=== PATIENT | male | born 1960 | race Caucasian/White ===

== ENCOUNTER 2022-01-04 06:49 | Emergency (ER) | payer MEDICAID, SELFPAY ==
[2022-01-04 06:54] VITALS: BP 163/96; PULSE 81; RESP 16; TEMP 36.4; O2SAT 98
--- NOTE | 2022-01-04 07:08 | ED.GENADUL_ITS ---
Discharge Plan Disposition Patient Disposition: HOME Condition: Stable Discharge Details Clinical Impression: Dental infection Primary Care Provider: None,None ED Provider: Refugio Blanchard Home Meds and New Rx's Prescriptions: New penicillin V potassium 500 mg tablet 500 mg PO QID Qty: 36 RF: 0 Continued ibuprofen 800 MG tablet 800 mg PO TID PRN PRN (Reason: Pain) Qty: 30 RF: 0 Discharge Instructions Instructions: Dental Abscess (ED) Additional Instructions: Your blood pressure was elevated today 163/96. This is too high. Please be sure to follow-up with your primary care physician. If blood pressure remains elevated you will need additional diagnostic testing and treatment. Please take full course of antibiotic as prescribed. Please take ibuprofen over the counter. Take 600-800mg by mouth every 6 hours as needed for pain. Please contact your dentist to arrange follow-up. Please contact your primary care physician to arrange timely follow-up. Be sure to discuss your blood pressure. Return to the ER immediately for any worsening or new concerning symptoms. Medical Decision Making 61-year-old male here with right lower incisor dental pain over the past 2 days, chronic dental fracture, no abscess amenable to incision and drainage. Plan to treat with penicillin. Initial dose given here and prescription sent to pharmacy. Usual and customary discharge instructions reviewed with the patient. He was instructed to follow-up with his dentist at [facility]. Patient was informed of his elevated blood pressure advised to follow-up with primary care physician. He does not currently have a primary care physician I will addend the care management list to arrange for PCP follow-up. HPI General Mode of arrival: ambulatory . Date/Time Provider Initiated Documentation: 01/04/22 06:53 . Limitations to Documentation: no limitations . Information obtained by: patient . HPI Narrative: 61-year-old male presents with chief complaint of dental pain. Patient notes right lower incisor dental pain for the past few days. Patient notes chronic dental fracture of the tooth. No associated swelling or fever. Patient notes this tooth has been infected in the remote past. Related Data Home Medications Medication Instructions Recorded Confirmed ibuprofen 800 mg PO TID PRN PRN #30 tab 11/21/15 01/04/22 penicillin V potassium 500 mg PO QID #36 tab 01/04/22 Previous Rx's Medication Instructions Recorded ibuprofen 800 mg PO TID PRN PRN #30 tab 11/21/15 penicillin V potassium 500 mg PO QID #36 tab 01/04/22 Allergies Allergy/AdvReac Type Severity Reaction Status Date / Time No Known Allergies Allergy Unverified 01/04/22 06:58 General Stated Complaint: DentalOral NILA: 4 Review of Systems Constitutional Constitutional: Denies fever(s) ENT Ears, Nose, Mouth, and Throat: Reports as per HPI PFSH All Active Problems Dental infection (Acute) Medical History Inguinal hernia Lipoma of face Surgical History Excision, Lipoma 05/10/15 ON FOREHEAD. Repair of inguinal hernia 05/10/15; RIGHT WITH MESH REPAIR Social History Smoking/Tobacco Use Status: Former Tobacco Use Smoking risk assessment performed?: Yes Alcohol Intake: former Drug use: Daily Substance use type: marijuana Exam Const General: cooperative and comfortable Orientation: alert and awake HENME General nose exam: external nose normal Face and sinus: normal facial exam and no edema Teeth and gingiva: poor dentition and other (tooth 27 chronic fracture, no swelling/fluctuance) Throat: posterior oropharynx normal Course Vital Signs Vital signs: Vital Signs Temperature 36.4 C L 01/04/22 06:54 Pulse 81 01/04/22 06:54 Respiratory Rate 16 01/04/22 06:54 Blood Pressure 163/96 H 01/04/22 06:54 Pulse Oximetry 98 01/04/22 06:54 Temperature 36.4 C L 01/04/22 06:54 Temperature Source Skin 01/04/22 06:54 Pulse 81 01/04/22 06:54 Respiratory Rate 16 01/04/22 06:54 Respiratory Effort 01/04/22 06:54 Blood Pressure 163/96 H 01/04/22 06:54 Blood Pressure Position Sitting 01/04/22 06:54 Pulse Oximetry 98 01/04/22 06:54 Oxygen Delivery Method Room Air 01/04/22 06:54 Oxygen Flow Rate 0 01/04/22 06:54 Pain Level 5 01/04/22 06:54
[2022-01-04] MEDS: Penicillin V POTASSIUM 500 MG TAB PO (07:13)
--- NOTE | 2022-01-04 07:20 | NUR.NOTE ---
Nursing Note: Pt info given to care management to establish care and PCP. Kandace, ED
== END 2022-01-04 07:21 | disposition home or self-care (01) ==
PROVIDERS: Emergency Provider Student in an Organized Health Care Education/Training Program
DX: K04.7 Periapical abscess without sinus (principal); R03.0 Elevated blood-pressure reading, without diagnosis of hypertension
CPT/HCPCS: 99283

== ENCOUNTER 2022-01-22 09:27 | Outpatient (REF) | payer MEDICAID, SELFPAY ==
[2022-01-22 15:22] LABS: Abs Immature Grans 0.06 10^3/uL (0.0-0.06); Absolute Basophil Count 0.07 10^3/uL (0.0-0.2); Absolute Eosinophil Count 0.06 10^3/uL (0.0-0.7); Absolute Lymphocyte Count 2.81 10^3/uL (1.2-3.4); Absolute Monocyte Count 0.69 10^3/uL (0.1-0.8); Basophils % 0.6; Eosinophils % 0.5; HCT 44.5 % (40.0-50.0); HGB 14.9 g/dL (13.5-17.5); Immature Grans % 0.5; Lymphocytes % 22.7; MCH 30.7 pg (27.0-33.0); MCHC 33.5 % (32.0-36.0); MCV 91.8 fL (80-95); MPV 9.3 fL (8.0-11.0); Monocytes % 5.6; Neutrophils % 70.1; Nucleated RBC 0 %; Platelet Count 322 10^3/uL (130-400); RBC 4.85 10^6/uL (4.36-5.78); RDW 12.4 % (11.8-14.1); RDW-SD 41.7 fL; WBC 12.36 10^3/uL (4.4-10.8)
[2022-01-22 15:24] LABS: Absolute Neutrophil Count 8.66 10^3/uL (1.2-6.7)
[2022-01-22 15:45] LABS: ALT 29 U/L (16-63); AST 19 U/L (15-37); Alkaline Phosphatase 87 U/L (46-116); Anion Gap 8.2 mmol/L (3-11); BUN 13 mg/dL (7-18); Bilirubin, Total 0.3 mg/dL (0.2-1.0); CO2 26.8 mmol/L (21.0-32.0); CREATININE 0.8 mg/dL (0.70-1.30); Calcium 9.3 mg/dL (8.5-10.1); Calculated LDL 107 mg/dL (<100); Chloride 105 mmol/L (98-107); Cholesterol 207 mg/dL (<200); Glucose 98 mg/dL (74-106); HDL Cholesterol 39 mg/dL (40-60); Potassium 4.6 mmol/L (3.5-5.1); Sodium 140 mmol/L (136-145); Total Protein 7.2 g/dL (6.4-8.2); Triglyceride 309 mg/dL (<150)
== END 2022-01-22 09:28 | disposition home or self-care (01) ==
LOC: LBN 09:27
PROVIDERS: PCP Nurse Practitioner; Visit Provider Nurse Practitioner
DX: Z13.220 Encounter for screening for lipoid disorders (principal); J45.909 Unspecified asthma, uncomplicated
CPT/HCPCS: 80053; 80061; 85025

== ENCOUNTER 2022-02-18 02:01 | Outpatient (CLI) | payer MEDICAID, SELFPAY ==
--- NOTE | 2022-02-18 08:40 | DI.CT_ITS ---
Exam(s) CT PELVIC W EXAM: CT PELVIC W CLINICAL HISTORY: rt groin pain, h/o rih repair, z98.890,z87.19. TECHNIQUE: Imaging Protocol: Axial computed tomography images with coronal and sagittal reformatted images were created and reviewed CONTRAST MATERIAL: Intravenous: Omnipaque 100cc Oral: None COMPARISON: No exams were available for comparison FINDINGS: PELVIS: OSSEOUS:No acute fractures identified pelvis and hips sacrum. Prior non recent appearing L4 left tra nsverse process fracture is noted. No significant osseous lesions.Sacroiliac joints appear unremarka ble. ANTERIOR ABDOMINAL WALL/GI:No evidence of bowel obstruction. No evidence of appendicitis.No evidence of sigmoid diverticulitis. LYMPH NODES: There is no intrapelvic nor inguinal adenopathy. REPRODUCTIVE: Prostate gland is not enlarged. URINARY BLADDER: No calculi nor obvious masses evident. Distal ureters appear unremarkable. GI: Sigmoid diverticuli. No obvious acute diverticulitis. No appendicitis. Ileocecal valve appears unremarkable. OTHER: No evidence of significant inguinal hernia. IMPRESSION: 1. No acute findings. There appears to be a left transverse process fracture at L4, probably not acu te. 2. No obvious inguinal hernia, as per request. 3. Sigmoid diverticuli. No obvious acute diverticulitis. RADIATION DOSE DELIVERED: 491.78mGy.cm Total DLP DATA REPOSITORY: All CT scans at this facility are submitted to the National Radiology Data Registry (NRDR) Dose Index Registry (DIR) with the [employer] ([employer]). RADIATION OPTIMIZATION: All CT scans at this facility use at least one of these dose optimization te chniques: automated exposure control; mA and/or kV adjustment per patient size (includes targeted exa ms where dose is matched to clinical indication); or iterative reconstruction.
[2022-02-18] MEDS: Omnipaque 350 MG/ML 100 ML BTL IJ (08:42)
== END 2022-02-18 02:21 ==
PROVIDERS: PCP Nurse Practitioner; Visit Provider Nurse Practitioner
DX: R10.31 Right lower quadrant pain (principal); Z98.890 Other specified postprocedural states; K57.30 Diverticulosis of large intestine without perforation or abscess without bleeding
CPT/HCPCS: 72193; J3490

== ENCOUNTER 2022-09-30 07:01 | Day surgery (SDC) | payer MEDICAID, SELFPAY ==
--- NOTE | 2022-09-30 06:36 | COLE_ITS ---
Date of service: 09/30/22 Time of Service: : Colonoscopy Report Date of procedure: 09/30/22 Pre-op diagnosis general: Colon Cancer screening Post-op diagnosis procedure note: other (polyps) Procedure: Colonoscopy with polypectomy Surgeon: Sahra Umana Anesthesia Type: General:No Airway Estimated blood loss (mL): 3 Pathology: other (ascending and descending polyp, rectal polyps x13) Complications: None Disposition: same day Indications: The patient is a pleasant 62-year-old male who is here to discuss a screening colonoscopy. He denies any changes in bowel habits, melena, hematochezia, unintentional weight loss or family history of colon cancer. The procedure and risks were discussed. The prep was reviewed in detail. Risks, benefits and complications have been reviewed. Complications include but are not limited to bleeding, pain, perforation, missed small lesion/polyp, sore throat, aspiration and adverse reaction to the medications. Questions were entertained and answered to their satisfaction and they wished to proceed. No guarantees were given or implied. Prep: Miralax/Dulcolax Procedure Start Time: Procedure End Time: : Retraction Time: 31 minutes Findings: 13 polyps Procedure Description: After informed consent was obtained the patient was taken to the procedure room and placed in a left decubitous position. Monitors were applied and a time out was done. The patients name, date of , procedure, allergies to medications and metal in their body was reviewed. The patient was then sedated. Once sedated and comfortable a rectal exam was done. External exam was normal. Internal exam revealed a normal sphincter tone and no palpable masses. The prostate felt smooth. The scope was then introduced and retro-flexed. no internal hemorrhoids, polyps or masses were identified on retro-flexion. The scope was then advanced to the cecum without difficulty. The ileocecal vlave and appendiceal orifice were identified. The prep was adequate. The scope was then slowly retracted over 31 minutes back into the rectum. Polyps were removed with cold forceps in the descending colon, and rectum x 11 and with a cold snare in the ascending colon and rectum x2. There was no diverticulosis noted. The scope was removed and the patient was woken up and taken back to Same day surgery in stable condition. The patient tolerated the procedure well and there were no immediate complicati ons.
--- NOTE | 2022-09-30 06:37 | W.PM.DSUDISC ---
Date of service: 09/30/22 Time of Service: 08:23 Discharge Plan Disposition Patient Disposition: HOME Condition: Good Discharge Details Reason For Visit: colonoscopy Attending Provider: Sahra Umana Primary Care Provider: Ml Felton Home Meds and New Rx's Prescriptions: Continued ibuprofen 800 MG tablet 800 mg PO TID PRN PRN (Reason: Pain) Qty: 30 0RF Discontinued bisacodyl [Dulcolax (bisacodyl)] 5 mg tablet,delayed release (DR/EC) 5 mg PO ONCE Qty: 4 0RF Rx Instructions: Take according to provider's instructions for colonoscopy prep. polyethylene glycol 3350 17 gram/dose powder 17 g PO ONCE Qty: 238 0RF Rx Instructions: To be taken as directed by prescriber's office for colonoscopy prep. Discharge Instructions Instructions: Colorectal Polyps (DC) Additional Instructions: Findings: 15 polyp Follow up: 3- years Please call if you develop: fevers >101.5 Nausea or Vomiting Abdominal pain that is not transient Rectal bleeding that is more then a tbsp A hard abdomen and inability to pass gas DAY SURGERY UNIT POST ENDOSCOPY INSTRUCTIONS Instructions for everyone who is given Anesthesia: For your safety, please do the following for the next 24 Hours: a. Do not drive or operate dangerous equipment b. Do not drink alcohol beverages or use any recreational drugs for the first 24 hours or while taking pain medications. The medications in your body may have a reaction that can be dangerous. c. Do not make any important decisions or sign any important papers 1. Generally there are no restrictions on your activity after a day or so has gone by, but you may feel a bit fatigued for a few days. 2. After you arrive home you may have a light meal and return to a normal diet as you can tolerate it without feeling sick to your stomach. 3. After surgery, you may feel pain or discomfort. This should be only transient, but if it persists please contact your doctor. 4. If there are any questions regarding the findings of your procedure, please feel free to contact your doctor. 6. If you are unable to contact your doctor with a problem, contact the hospital at [phone]. 7. Continue all your regular medications unless directed otherwise. I understand the above instructions and have no questions. Signature of Patient or Responsible Adult Escort Date/Time Name of Responsible Adult Escort Signature of Nurse Date/Time Activity:: Activity as Tolerated Diet:: As Tolerated Discharge Orders Discharge Orders: Discharge Order (Routine); Ordered 09/30/22 Ordered By: Sahra Umana
[2022-09-30 07:26] VITALS: BP 130/92; PULSE 94; RESP 16; TEMP 37; O2SAT 97
[2022-09-30] MEDS: Lactated Ringers 1,000 ML 80 ML IV (07:50)
--- NOTE | 2022-09-30 08:09 | W.ANESPRE ---
General Info Date of Service Date Performed: 09/30/22 Height: 5 ft 9 in Weight: 85.1 kg Body Mass Index (BMI): 27.7 Surgical Procedure: Operation Date: 09/30/22 08:20 Proposed Procedure Side Surgeon p Colonoscopy Sahra Umana MD Meds Allergies and Home Medications Allergies Allergy/AdvReac Type Severity Reaction Status Date / Time No Known Allergies Allergy Unverified 09/30/22 07:38 Home Medication Medication Instructions Recorded ibuprofen 800 mg tablet 800 mg PO TID PRN PRN Pain #30 tabs 11/21/15 bisacodyl 5 mg tablet,delayed 5 mg PO ONCE #4 tabs 09/17/22 release (Dulcolax (bisacodyl)) polyethylene glycol 3350 17 17 g PO ONCE #238 grams 09/17/22 gram/dose oral powder Current Visit Medications: Current Medications Generic Name Dose Route Start Last Admin Trade Name Freq PRN Reason Stop Dose Admin Hyoscyamine Sulfate 0.125 mg 09/30/22 06:37 Hyoscyamine 0.125 Mg Sl/Oral/Chew SL DIRECTED PRN Ondansetron HCl 4 mg 09/30/22 06:37 Ondansetron 4 Mg/2 Ml Vial IVP Q4H PRN PRN Nausea / Vomiting PFSH Active Problems Active Problems: Problem Status Onset Code Screening for colon cancer Z12.11 Snoring R06.83 History of tobacco abuse Z87.891 Hypertension I10 Marijuana use F12.90 Medical History Medical History Inguinal hernia (05/01/15) right side, operated by Dr. Umana, 04/14 Lipoma of face (05/01/15) right forehead, removed by Dr. Umana, 04/14 Medical History Comments:: 09/30/22 pt reports he tested positive for covid on 09/10/22, 5 days later tested negative. Pt reports he has a smokers cough but was coughing up green phelgm thick 2 days ago. Smokers cough today. Pt reports he had a cigareete at 5:30am today 09/30/22 Smoked marihuana 09/29/22 Surgical History Surgical History Excision, Lipoma 05/10/15 ON FOREHEAD. Repair of inguinal hernia 05/10/15; RIGHT WITH MESH REPAIR Tobacco Smoking/Tobacco Use Status: Current every day Tobacco Type: cigarettes Smoking cigarettes per day: 10 Years smoked: 50 Passive smoking exposure: Yes Alcohol Alcohol Intake: current Alcohol intake frequency: 0-2 drinks per day Alcohol type: beer Substance Use Substance use: Daily Substance use type: marijuana Details: last used 09/29/22 Vital Signs and Lab Results Vital Signs Most Recent Vital Signs in EMR: Most Recent Vital Signs Temp Pulse Resp BP Pulse Ox 37 C 94 H 16 130/92 H 97 09/30/22 07:26 09/30/22 07:26 09/30/22 07:26 09/30/22 07:26 09/30/22 07:26 Lab Results Blood Type / Crossmatch: No Data to Display Complete Blood Count: No Data to Display Complete Metabolic Panel: No Data to Display Liver Function Panel: No Data to Display Coagulation Panel: No Data to Display Cardiac Panel: No Data to Display Arterial Blood Gas: No Data to Display Venous Blood Gas: No Data to Display Pancreas Panel: No Data to Display Thyroid Panel: No Data to Display Infectious Disease: No Data to Display Blood Cultures: No Data to Display Toxicology Panel: No Data to Display Anesthesia Assessment and Plan Anesthesia History Personal History: No History of Anesthesia Complications Family History: No Family History of Anesthesia Complications Exercise Tolerance Exercise Tolerance: Metabolic Equivalents>4 Pertinent Negatives Pertinent Negatives: No Symptoms of GERD, No Major Cardiovascular Symptoms or Complaints and No Major Pulmonary Symptoms or Complaints Cardiac & Pulmonary Exam Cardiac Exam: Normal S1/S2 Heart Sounds Pulmonary Exam: Clear Bilateral Breath Sounds Implantable Cardiac Device Does patient have a Pacemaker or an ICD?: No Airway Exam Known Difficult Airway: No Mallampati Class: 1 Mouth Opening: Normal (> 3cm) Thyromental Distance: Greater than 3 cm Facial Hair: Full Torres Neck Range of Motion: Full ROM Neck Circumference: Normal Teeth Condition: Normal Dentition ASA Classification ASA Score: ASA 2 Emergency Case?: No NPO Status NPO Status: NPO Clears >2 hours, Solids >8 hours Anesthesia Plan Resuscitation Status: Full Code Anesthesia Technique: General Anesthesia Airway Planned: Natural Airway Monitors Used: Standard Monitors
[2022-09-30 08:11] VITALS: BMI 27.7
--- NOTE | 2022-09-30 08:32 | BOWEL_PTH ---
PATIENT: Keegan Delgadillo LOC: [facility] U#:[id number] AGE/SX: 62/M ROOM: RE09/30/[address]: Sahra Umana MD : 1960 BED: DIS: 09/30/2022 SPEC #: [id number] RECD: 09/30/22 12:37 STATUS: SUSIE REQ #: [id number] HARLEY: 09/30/22 08:[address]: Sahra Umana DEPT: Surgical Specimen RECD BY: Scarlet Sandhu ENTERED: 09/30/22 12:38 SP TYPE: Bowel OTHR DR: Ml eFlton APRN Tissues: 1 - BIOPSY BOWEL 2 - BIOPSY BOWEL 3 - BIOPSY BOWEL 4 - BIOPSY BOWEL Procedures: GROSS AND MICRO LEVEL 4 Comments: [id number]
[2022-09-30 09:08] VITALS: BP 118/79; PULSE 76; RESP 18; TEMP 36.2; O2SAT 98
[2022-09-30 09:29] VITALS: BP 134/86; PULSE 66; RESP 18; TEMP 36.5; O2SAT 98
--- NOTE | 2022-09-30 10:13 | W.ANESPOSTOP ---
Postoperative Evaluation Date, Time and Location Date Performed: 09/30/22 Time Performed: 09:35 Patient Location: Day Surgery Unit Vital Signs Most Recent Imported Vital Signs: Most Recent Vital Signs Temp Pulse Resp BP Pulse Ox 36.5 C 66 18 134/86 98 09/30/22 09:29 09/30/22 09:29 09/30/22 09:29 09/30/22 09:29 09/30/22 09:29 Pain Score Most Recent Pain Score: Most Recent Pain Score Pain Level 2 09/30/22 09:29 Assessment Mental Status: Awake (Alert & Oriented to Patient Baseline) Airway and Respiratory Function: Patent airway with normal (patient baseline) respiratory exam Cardiovascular Function: Hemodynamically Stable Hydration Status: Adequately Hydrated Nausea & Vomiting: No Nausea or Vomiting Pain: Pt. Denies Any Pain Peripheral Nerve Block: Patient did not receive a nerve block
== END 2022-09-30 09:40 | disposition home or self-care (01) ==
PROVIDERS: PCP Nurse Practitioner; Visit Provider Surgery
PROC: 0DJD8ZZ Inspection of Lower Intestinal Tract, Via Natural or Artificial Opening Endoscopic (ICD-10-PCS; CPT 45378; principal; 2022-09-30 08:15)
DX: Z12.11 Encounter for screening for malignant neoplasm of colon (principal); K63.5 Polyp of colon; K62.1 Rectal polyp
CPT/HCPCS: 45380; 88305

== ENCOUNTER 2024-04-26 11:35 | Emergency (ER) | payer MEDICAID, SELFPAY ==
[2024-04-26] VITALS (57 sets, daily range): BP systolic 136–179; BP diastolic 71–141; PULSE 49–77; RESP 8–26; TEMP 36; O2SAT 91–99
--- NOTE | 2024-04-26 11:30 | RT.EKG_ITS ---
APPROVED REPORT Exam: Resting ECG Reason for Exam: Hematemesis Patient Location: E HR:53 bpm ECG Measurements Heart Rate 53 AXIS MT 182 P 66 QRSd 109 QRS -52 QT 490 T 29 QTc 460 Conclusion Sinus bradycardia...rate< 60 LAD, consider left anterior fascicular block...axis(240,-40), S>R II III aVF
--- NOTE | 2024-04-26 11:43 | W.ED.GENAD ---
Discharge Plan Discharge Details Chief Complaint: Abd Prob Primary Care Provider: [facility] ED Provider: Mikaela Alcala Home Meds and New Rx's Prescriptions: No Action ibuprofen 800 MG tablet 800 mg PO TID PRN PRN (Reason: Pain) Qty: 30 0RF HPI General Mode of arrival: EMS. Date/Time Provider Initiated Documentation: 04/26/24 11:42. Limitations to Documentation: no limitations. Information obtained by: patient, EMS, RN notes reviewed and old records reviewed. HPI Narrative: 63-year-old male presents to the ER with a chief complaint of hematic emesis 4 AM woke up vomiting blood. Patient was diaphoretic was given 4 mg of Zofran by EMS prior to arrival. He reports some bilateral upper abdominal pressure. He is spitting up bloody streaked emesis upon arrival. Vital signs are stable. Denies any chest pain or back pain. Denies any recent trauma. He does drink approximately 6-12 beers daily and endorses marijuana. Denies any other illicit drugs or any dark or tarry stools. Abdomen is soft and nondistended on exam. Past medical history includes lipoma face removal and inguinal hernia repair. He is also had a colonoscopy in the past. Last drink was last night. Related Data Home Medications Medication Instructions Recorded Confirmed ibuprofen 800 mg tablet 800 mg PO TID PRN PRN Pain #30 tabs 11/21/15 04/26/24 Previous Rx's Medication Instructions Recorded ibuprofen 800 mg tablet 800 mg PO TID PRN PRN Pain #30 tabs 11/21/15 Allergies Allergy/AdvReac Type Severity Reaction Status Date / Time No Known Allergies Allergy Unverified 04/26/24 12:01 General Stated Complaint: Abd Prob NILA: 3 Review of Systems All systems reviewed & are unremarkable except as noted in HPI and below Constitutional Constitutional: Reports as per HPI and Reports weakness ENT Ears, Nose, Mouth, and Throat: Reports dizziness and Reports disequilibrium Cardiovascular Cardiovascular: Denies chest pain, Denies pedal edema and Denies dyspnea Respiratory Respiratory: Denies dyspnea Gastrointestinal Gastrointestinal: Reports abdominal pain, Reports dyspepsia, Reports nausea, Reports vomiting and Reports hematemesis (Blood-streaked) Neurologic Neurologic: Reports dizziness, Reports disequilibrium and Reports weakness Exam Narrative Exam Narrative: Constitutional: Alert and oriented x3. Appears stated age. Normal body habitus. Patient is actively retching upon arrival, he is diaphoretic. Head: Normocephalic, no trauma. Eyes: Pupils PERRL, Red reflex noted, EOM's intact. Eyelids symmetrical without lesions, discharge, or swelling. Chest: Regular rate and rhythm, normal S1, S2, distal pulses intact. Denies chest pain Resp: Lungs clear to auscultation bilaterally, no wheezes, rales, or rhonchi. Abdomen: Soft, non-distended, no masses no guarding, denies any black tarry stools Musculoskeletal: Unsteady gait, Moves all 4 extremities without difficulty. Denies back pain Skin: No suspicious rashes or lesions. Capillary refill less than 2 sec. Neurologic: Cranial nerves II-XII intact. Alert and oriented x 3. Motor: No deficits noted. Sensory: Intact bilaterally all 4 extremities. No tremor noted. Hematologic/Lymphatic: No ecchymosis, no lymphadenopathy. Course Vital Signs Vital signs: Vital Signs Temperature 36.0 C L 04/26/24 11:31 Pulse 68 04/26/24 11:31 Respiratory Rate 16 04/26/24 11:31 Blood Pressure 154/86 H 04/26/24 11:31 Pulse Oximetry 96 04/26/24 11:31 Temperature 36.0 C L 04/26/24 11:31 Temperature Source Skin 04/26/24 11:31 Pulse 68 04/26/24 11:31 Respiratory Rate 16 04/26/24 11:31 Respiratory Effort Normal, Non-Labored 04/26/24 11:38 Blood Pressure 154/86 H 04/26/24 11:31 Pulse Oximetry 96 04/26/24 11:31 Oxygen Delivery Method Room Air 04/26/24 11:31 Oxygen Flow Rate 0 04/26/24 11:31 Pain Level 0 04/26/24 11:31 Medical Decision Making 63-year-old male presents to the ER with a chief complaint of hematic emesis 4 AM woke up vomiting blood. Patient was diaphoretic was given 4 mg of Zofran by EMS prior to arrival. He reports some bilateral upper abdominal pressure. He is spitting up bloody streaked emesis upon arrival. Vital signs are stable. Denies any chest pain or back pain. Denies any recent trauma. He does drink approximately 6-12 beers daily and endorses marijuana. Denies any other illicit drugs or any dark or tarry stools. Abdomen is soft and nondistended on exam. Past medical history includes lipoma face removal and inguinal hernia repair. He is also had a colonoscopy in the past. Last drink was last night. EKG was reviewed by myself and Dr. Blanchard ER attending, no old EKG available for review. EKG shows sinus bradycardia at a rate of 53, left anterior fascicular block. Please see official report. Workup ordered including CBC CMP troponin x 2, PT PTT alcohol level liter of LR 2 mg of Zofran as patient is still having some retching upon arrival. And 40 mg Protonix. Differential diagnosis includes but not limited to GI bleed, alcohol withdrawal, acute gastritis related to alcoholism, and less likely AAA however patient has no chest pain or complaint of back pain. Will consider CT pending labs and patient eval.. 1413: Patient reevaluation he reports that he feels somewhat better after the medications nausea is somewhat improved. Will order GI cocktail and p.o. challenge. Patient and family report that he is wobbly and unstable on his feet with standing. He reports he feels weak. CIWA score is a 4 no tremor noted at this time. Discussed workup with patient and family. Offered consultation with [facility] coach at this time patient has no desire for rehab were to cut down his drinking. Will refer him to [facility] through discharge papers. 1504: CT shows questionable penetrating ulcer along the 9 to 10 o'clock position of the infrarenal abdominal aorta and plaque within the midportion of the left common iliac artery resulting in moderate stenosis. Repeat CBC and orthostatic vital signs ordered. [facility] transfer center contacted to speak with vascular surgery. And possible transfer if needed images pushed. Awaiting call back. Repeat CBC shows stable H&H, of note white blood cell count is now 17,000. Urinalysis shows no evidence of UTI no nitrates no leukocytes. Care is to be handed off to oncoming provider HOMERO Gutierrez pending [facility] consultation. Discussed patient case in details with him he verbalized understanding. At the time of this discontinuation patient is hemodynamically stable. Imaging Data Radiologic Study: Imaging: CT Scan Radiologist's impression: CTA Chest With Contrast CTA Abdomen and Pelvis With Contrast Exam date and time: 04/26/2024 1:17 PM Age: 63 years old Clinical indication: Other: Hematemesis, abd pain TECHNIQUE: Imaging protocol: Computed tomographic angiography of the chest with contrast. Exam focused on the arteries. Computed tomographic angiography of the abdomen and pelvis with contrast. Exam focused on the arteries. 3D rendering (Not supervised by radiologist): MIP and/or 3D reconstructed images were created by the technologist. Contrast material: OMNIPAQUE 350; Contrast volume: 125 ml; Contrast route: INTRAVENOUS (IV); COMPARISON: No relevant prior studies available. FINDINGS: VASCULATURE: Pulmonary arteries: Normal. No pulmonary emboli. Aorta: Small amount of plaque within the distal portion of the aorta. Questionable penetrating ulcer along the 9-10 o'clock position of the aorta on image 4-76. Celiac trunk and mesenteric arteries: No occlusion or significant stenosis. Renal arteries: No occlusion or significant stenosis. Right iliac arteries: No occlusion or significant stenosis. Left iliac arteries: Plaque in the proximal portion of the common iliac artery results in 50-60% stenosis. No occlusion. CHEST: Lungs: Unremarkable. No consolidation. No masses. Pleural spaces: Unremarkable. No pneumothorax. No pleural effusion. Heart: Unremarkable. No cardiomegaly. No pericardial effusion. ABDOMEN AND PELVIS: Liver: No mass. Gallbladder and bile ducts: Unremarkable. No calcified stones. No ductal dilation. Pancreas: Unremarkable. No mass. No ductal dilation. Spleen: Unremarkable. No splenomegaly. Adrenal glands: Unremarkable. No mass. Kidneys and ureters: Unremarkable. No solid mass. No hydronephrosis. Stomach and bowel: Unremarkable. No obstruction. No mucosal thickening. Appendix: No evidence of appendicitis. Intraperitoneal space: Unremarkable. No free air. No significant fluid collection. Urinary bladder: Unremarkable. No mass. Reproductive: Unremarkable as visualized. Lymph nodes: Unremarkable. No enlarged lymph nodes. Bones/joints: [id number] degenerative changes of the osseous structures. No acute fracture. Soft tissues: Unremarkable. IMPRESSION: 1. Questionable penetrating ulcer along the 9-10 o'clock position of the infrarenal abdominal aorta on image 4-76. 2. Plaque within the midportion of the left common iliac artery results in moderate stenosis. Thank you for allowing us to participate in the care of your patient. Dictated and Authenticated by: John Robles MD Lab Data Lab results reviewed: Yes I reviewed the patient's lab results. Labs: Laboratory Tests Range/Units 04/26/24 11:40 WBC (4.4-10.8) 10^3/uL 13.25 H RBC (4.36-5.78) 10^6/uL 5.17 Hgb (13.5-17.5) g/dL 15.9 Hct (40.0-50.0) % 47.7 MCV (80-95) fL 92 MCH (27.0-33.0) pg 30.8 MCHC (32.0-36.0) % 33.3 RDW (11.8-14.1) % 13.2 Plt Count (130-400) 10^3/uL 286 MPV (8.0-11.0) fL 8.5 Immature Gran % % 0.7 Neutrophils % % 72.7 Lymphocytes % % 19.9 Monocytes % % 5.8 Eosinophils % % 0.4 Basophils % % 0.5 Nucleated RBC % (0.0-0.3) % 0.0 Absolute Neutrophils (1.2-6.7) 10^3/uL 9.63 H Absolute Lymphocytes (1.2-3.4) 10^3/uL 2.64 Absolute Monocytes (0.1-0.8) 10^3/uL 0.77 Absolute Eosinophils (0.0-0.7) 10^3/uL 0.05 Absolute Basophils (0.0-0.2) 10^3/uL 0.07 PT (9.1-11.1) sec 9.9 INR (0.9-1.1) 1.0 APTT (23.6-32.8) sec 23.7 Sodium (136-145) mmol/L 142 Potassium (3.5-5.1) mmol/L 4.1 Chloride (98-107) mmol/L 108 H Carbon Dioxide (21.0-32.0) mmol/L 25.7 Anion Gap (3-11) mmol/L 8.3 BUN (7-18) mg/dL 14 Creatinine (0.70-1.30) mg/dL 0.8 Est GFR (CKD-EPI 2020) (mL/min/1.73m2) 100.06 Glucose (74-106) mg/dL 165 H Calcium (8.5-10.1) mg/dL 8.9 Magnesium (1.8-2.4) mg/dL 2.0 Total Bilirubin (0.2-1.0) mg/dL 0.5 AST (15-37) U/L 16 ALT (16-63) U/L 26 Alkaline Phosphatase (46-116) U/L 87 Troponin I (< or =60) ng/L < 50 Total Protein (6.4-8.2) g/dL 7.2 Albumin (3.4-5.0) g/dL 3.7 Lipase (16-77) U/L 25 Ethyl Alcohol (<10) mg/dL < 3.0 Add-On Test Request DONE Quality:SDOH Health Related Social Needs: No Data to Display PFSH All Active Problems Serrated adenoma of colon (Acute) Tubular adenoma of colon (Acute) Hyperplastic colon polyp (Acute) Screening for colon cancer (Acute) Snoring (Acute) History of tobacco abuse (Acute) Hypertension (Chronic) Marijuana use (Chronic) daily Medical History Lipoma of face (05/01/15) right forehead, removed by Dr. Umana, 04/14 Inguinal hernia (05/01/15) right side, operated by Dr. Umana, 04/14 Surgical History History of colonoscopy (~10/2022) Repair of inguinal hernia 05/10/15; RIGHT WITH MESH REPAIR Excision, Lipoma 05/10/15 ON FOREHEAD. Family History Father Multiple sclerosis Maternal Grandfather Colon cancer Maternal Uncle Colon cancer Paternal Grandfather Heart disease Social History Smoking/Tobacco Use Status: Current every day Tobacco Type: cigarettes Years smoked: 50 Tobacco: How many years used: 50 Quit status: quit date established Smoking risk assessment performed?: Yes Alcohol Intake: current Alcohol Intake frequency: 0-2 drinks per day Alcohol type: beer Drug use: Daily Substance use type: marijuana Details: last used 09/29/22 Pt states he had a 6-pack of twisted tea yesterday 04/26/24 Adopted: No Caregiver/Support person: No Foster care: No Household members: significant other Housing: house Number of Children: 4 number of grandchildren: 6 Communication Needs: None Education Level: high school Do you need help understanding health information?: Never current occupation: [employer], [employer] Pets and animals: Yes (5) Pets and animals: bird(s) Sexually active: Yes Do you think of yourself as: straight/heterosexual Current gender identity: male What is your relationship status?: living with partner How often do you talk on the phone with friends or family?: once per week How often do you get together with friends or relatives?: once per week Do you belong to any clubs or organized social groups?: no Panel score (0-1 are the most socially isolated patients): 1 What type of physical activity do you participate in: regular exercise Mallika/Anglican: Baptism Special mallika needs: No Seatbelt use: never Helmet use: No Drive intox or ride w/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 Presents via EMS with vomiting with red streaks since this morning. He did present diaphoretic. He is not orthostatic, H&H is stable denies any black or tarry stools. Pending consultation with [facility] vascular due to questionable penetrating ulcer on the infrarenal aorta. Patient is still complaining of weakness dizziness and unstable gait after 1.5 L of fluid patient has received 8 mg of Zofran. Ciwa score was 4 at the time of this dictation. No tremors or signs of withdrawal at this time. Last updated by Mikaela Alcala NP at 04/26/24 15:42 PAWSS Have you Been Recently Intoxicated or Drunk Within the Last 30 days?: Yes Have you Ever Experienced Previous Episodes of Alcohol Withdrawal?: No Have you ever Experienced Withdrawal Seizures?: No Have you ever Experienced Delirium Tremens(DT)s?: No Have you ever undergone Alcohol Rehabilitation Treatment (i.e, inpt ot outpatient treatment programs)?: No Have you ever Experienced Blackouts?: No Have you ever Combined Alcohol with other Downers within the last 90 days?: No Have you ever Combined Alcohol with any other Substance of Abuse during the last 90 days?: No Positive Blood Alcohol level on Presentation? [PCS.BAL]: No Evidence of Increased Autonomic Activity (i.e. HR>120, tremor, sweating, agitation, nausea)?: No Result: 1
[2024-04-26] MEDS: Pantoprazole 40 MG VIAL IVP (11:49)
[2024-04-26] MEDS: Ondansetron 4 MG/2 ML VIAL 2 MG IVP ×2 (11:50→12:45)
[2024-04-26] MEDS: Lactated Ringers 1,000 ML 1000 ML IV (11:50)
[2024-04-26 11:54] LABS: Abs Immature Grans 0.09 10^3/uL (0.0-0.06); Absolute Basophil Count 0.07 10^3/uL (0.0-0.2); Absolute Eosinophil Count 0.05 10^3/uL (0.0-0.7); Absolute Lymphocyte Count 2.64 10^3/uL (1.2-3.4); Absolute Monocyte Count 0.77 10^3/uL (0.1-0.8); Absolute Neutrophil Count 9.63 10^3/uL (1.2-6.7); Basophils % 0.5 %; Eosinophils % 0.4 %; HCT 47.7 % (40.0-50.0); HGB 15.9 g/dL (13.5-17.5); Immature Grans % 0.7 %; Lymphocytes % 19.9 %; MCH 30.8 pg (27.0-33.0); MCHC 33.3 % (32.0-36.0); MCV 92 fL (80-95); MPV 8.5 fL (8.0-11.0); Monocytes % 5.8 %; Neutrophils % 72.7 %; Platelet Count 286 10^3/uL (130-400); RBC 5.17 10^6/uL (4.36-5.78); RDW 13.2 % (11.8-14.1); RDW-SD 45.5 fL; WBC 13.25 10^3/uL (4.4-10.8)
[2024-04-26 12:08] LABS: PTT Activated 23.7 sec (23.6-32.8); Prothrombin Time 9.9 sec (9.1-11.1)
[2024-04-26 12:20] LABS: ALT 26 U/L (16-63); AST 16 U/L (15-37); Albumin 3.7 g/dL (3.4-5.0); Alkaline Phosphatase 87 U/L (46-116); Anion Gap 8.3 mmol/L (3-11); BUN 14 mg/dL (7-18); Bilirubin, Total 0.5 mg/dL (0.2-1.0); CO2 25.7 mmol/L (21.0-32.0); CREATININE 0.8 mg/dL (0.70-1.30); Calcium 8.9 mg/dL (8.5-10.1); Chloride 108 mmol/L (98-107); ETHANOL BLOOD < 3.0 mg/dL (<10); Estimated GFR 100.06 (mL/min/1.73m2); Glucose 165 mg/dL (74-106); Potassium 4.1 mmol/L (3.5-5.1); Sodium 142 mmol/L (136-145); Total Protein 7.2 g/dL (6.4-8.2); Troponin I < 50 ng/L (< or =60)
--- NOTE | 2024-04-26 12:30 | DI.CT_ITS ---
Exam(s) CT THORAX ABD/PEL CTA EXAM: CT THORAX ABD/PEL CTA CLINICAL HISTORY: Hematemesis, Abd pain. TECHNIQUE: Imaging Protocol: Axial CT angiography was performed with multi-slice acquisition and m ulti-planar and/or 3D reconstructions. CONTRAST MATERIAL: Intravenous: Omnipaque 350 Contrast volume:125 ml Oral: yes / no COMPARISON: CT NECK WITH CONTRAST from 06/10/[address] PELVIC W from 02/18/2022 FINDINGS: CHEST: Pulmonary Arteries: No evidence of filling defect to suggest pulmonary emboli. Tracheobronchial tree: Patent where visualized. Mediastinum and Stephany: No dominant adenopathy or fluid collection. Pulmonary parenchyma: No consolidation or dominant measurable mass. No architectural distortion. Pleura: No effusion or pneumothorax. Heart: The heart is not dilated. No coronary artery calcifications are seen. Aorta: Thoracic aorta non-dilated. Mild atherosclerotic changes. Bones: Normal. Tubes, Catheters, and Lines: ABDOMEN AND PELVIS: Abdomen: Celiac axis: Focal moderate narrowing proximally without visible plaque. If the findings could repre sent median arcuate ligament syndrome. Mild poststenotic dilatation. Mesenteric arteries: No evidence of occlusion or significant stenosis. Renal Arteries: No evidence of occlusion or significant stenosis. There is a single renal artery per fusing each kidney. Aorta: No evidence of occlusion or significant stenosis. No aneurysm or dissection. Atheroscleroti c changes, [id number], greater distally. Pelvis: Iliac Arteries: Septic plaque in the proximal left common iliac artery approximate 50 percent stenos is. Common Femoral Arteries: No evidence of occlusion or significant stenosis. ABDOMEN: Evaluation of bowel somewhat limited due to motion. Liver: Normal density. No measurable mass. Portal, Superior Mesenteric, and Splenic Veins: Unremarkable. Gallbladder and Biliary Tract: No radiodense calculus or dilation. Pancreas: Normal density, no abnormal calcifications or inflammatory process. Spleen: Normal. Adrenals: No masses seen. Kidneys: Normal size, contour and axis. No radiodense stones or obstructive uropathy. No masses seen. Bowel: No obstruction or bowel wall thickening. Appendix is unremarkable. Diverticulosis. No evide nce of diverticulitis. Colon mainly free of stool. Peritoneal Cavity: No ascites, collection or mesenteric inflammatory response. Lymph Nodes: Within normal limits. Bones: Degenerative changes. Soft Tissues: Unremarkable. PELVIS: Bladder: Symmetric distention, no gross wall thickening. Reproductive Organs: Unremarkable as visualized. Lymph Nodes: Within normal limits. Bones: Within normal limits for age. IMPRESSION: No evidence of aortic dissection. Atherosclerotic changes of the abdominal aorta without evidence of aneurysm. Approximate 50 percent stenosis of the left common iliac artery. focal narrowing without plaque at the the proximal celiac axis may indicate median arcuate ligament s yndrome. No evidence of mesenteric ischemia. RADIATION DOSE DELIVERED: Total DLP DATA REPOSITORY: All CT scans at this facility are submitted to the National Radiology Data Registry (NRDR) Dose Index Registry (DIR) with the [employer] (ACR). RADIATION OPTIMIZATION: All CT scans at this facility use at least one of these dose optimization te chniques: automated exposure control; mA and/or kV adjustment per patient size (includes targeted exa ms where dose is matched to clinical indication); or iterative reconstruction.
[2024-04-26] MEDS: Omnipaque 350 MG/ML 100 ML BTL IJ (13:17)
[2024-04-26] MEDS: Omnipaque 350 MG/ML 50 ML BTL 25 ML IJ (13:19)
[2024-04-26] MEDS: Lidocaine 2% Viscous 15 ML CUP PO (14:34)
[2024-04-26] MEDS: Normal Saline 500 ML IV (14:40)
[2024-04-26 14:42] LABS: Lab Add On Test DONE
--- NOTE | 2024-04-26 14:47 | DI.VRAD_ITS ---
PROCEDURE INFORMATION: Exam: CTA Chest With Contrast CTA Abdomen and Pelvis With Contrast Exam date and time: 04/26/2024 1:17 PM Age: 63 years old Clinical indication: Other: Hematemesis, abd pain TECHNIQUE: Imaging protocol: Computed tomographic angiography of the chest with contrast. Exam focused on the arteries. Computed tomographic angiography of the abdomen and pelvis with contrast. Exam focused on the arteries. 3D rendering (Not supervised by radiologist): MIP and/or 3D reconstructed images were created by the technologist. Contrast material: OMNIPAQUE 350; Contrast volume: 125 ml; Contrast route: INTRAVENOUS (IV); COMPARISON: No relevant prior studies available. FINDINGS: VASCULATURE: Pulmonary arteries: Normal. No pulmonary emboli. Aorta: Small amount of plaque within the distal portion of the aorta. Questionable penetrating ulcer along the 9-10 o'clock position of the aorta on image 4-76. Celiac trunk and mesenteric arteries: No occlusion or significant stenosis. Renal arteries: No occlusion or significant stenosis. Right iliac arteries: No occlusion or significant stenosis. Left iliac arteries: Plaque in the proximal portion of the common iliac artery results in 50-60% stenosis. No occlusion. CHEST: Lungs: Unremarkable. No consolidation. No masses. Pleural spaces: Unremarkable. No pneumothorax. No pleural effusion. Heart: Unremarkable. No cardiomegaly. No pericardial effusion. ABDOMEN AND PELVIS: Liver: No mass. Gallbladder and bile ducts: Unremarkable. No calcified stones. No ductal dilation. Pancreas: Unremarkable. No mass. No ductal dilation. Spleen: Unremarkable. No splenomegaly. Adrenal glands: Unremarkable. No mass. Kidneys and ureters: Unremarkable. No solid mass. No hydronephrosis. Stomach and bowel: Unremarkable. No obstruction. No mucosal thickening. Appendix: No evidence of appendicitis. Intraperitoneal space: Unremarkable. No free air. No significant fluid collection. Urinary bladder: Unremarkable. No mass. Reproductive: Unremarkable as visualized. Lymph nodes: Unremarkable. No enlarged lymph nodes. Bones/joints: [id number] degenerative changes of the osseous structures. No acute fracture. Soft tissues: Unremarkable. IMPRESSION: 1. Questionable penetrating ulcer along the 9-10 o'clock position of the infrarenal abdominal aorta on image 4-76. 2. Plaque within the midportion of the left common iliac artery results in moderate stenosis. Dictated and Authenticated by: John Robles MD. Ordering:ASHLEE Al MD
[2024-04-26 14:51] LABS: Lipase 25 U/L (16-77)
[2024-04-26 15:02] LABS: Troponin I < 50 ng/L (< or =60)
[2024-04-26 15:37] LABS: HCT 44.8 % (40.0-50.0); HGB 15.2 g/dL (13.5-17.5); MCHC 33.9 % (32.0-36.0); MCV 91 fL (80-95); MPV 8.4 fL (8.0-11.0); Platelet Count 257 10^3/uL (130-400); RDW 13.3 % (11.8-14.1); RDW-SD 45.2 fL; WBC 17.15 10^3/uL (4.4-10.8)
[2024-04-26 15:43] LABS: Bilirubin Negative (Negative); Blood Negative (Negative); Clarity Clear (Clear); Glucose Negative (Negative); Ketones 40 mg/dL (Negative); Leukocyte Esterase Negative (Negative); Nitrite Negative (Negative); Urobilinogen 0.2 mg/dL (Up to 0.2); pH 5.5 (5-8)
--- NOTE | 2024-04-26 15:59 | ED.PROG_ITS ---
Date of service: 04/26/24 Time of Service: 15:59 Medical Decision Making This dictation utilizes [id number] dictation software and may contain unedited grammatical errors. Patient seen in sign-out from Mikaela Alcala NP- please see her complete note. Essentially this 63 y/o M presents to ED today with a chief complaint of nausea & vomiting with some streaks of blood in it. 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 Patients' medical history: Hypertension, daily marijuana use, inguinal hernia. Family and social history: [ ]. Pertinent exam findings / vital signs include nonperitoneal abdomen, stable vitals, not orthostatic. Differential / pathologies of concern include Janelle Delgadillo tear, Esophageal Varices, Gastritis/PUD, Penetrating Aortic Ulcer, ETOH withdrawal. Diagnostic studies of: -see prior note - CTA findings discused with [facility] - non-concerning. Repeat H+H no concern for hemorrhage. Interventions of: -outpatient trial protonix. ED Course/Assessment/Plan: 63-year-old male presents with some hematemesis this morning, had some emesis here with some minor blood streaks in it. He had some abdominal pain underwent CTA with some concerning findings of IV read for an aortic penetrating ulcer infrarenally, I discussed this with [facility] [place]. Lee @1179, who is unconcerned for penetrating ulcer -does recommend starting a baby aspirin and statin. Patient is nausea and vomiting after significant daily alcohol intake long-term ongoing is likely related to gastritis or PUD. I discussed starting a PPI by prescription which I am happy to prescribe. Patient's repeat H&H was stable indicating no significant bleeding is going on. The patient feels generally mild malaise at this time. I did recreational counselor on the likely need for an EGD at some point in the future and probably starting to attend PCP visits more often, discussed taking supplements like thiamine and a multivitamin. Findings not consistent with GI hemorrhage, esophageal varices, aortic penetrating ulcer. Disposition of Gastritis. Patient verbalized understanding of the plan and return to ED criteria and engaged in shared decision making. Medical Records Medical records reviewed: Yes I reviewed the patient's medical records. Imaging Data Radiologic Study: Attestation: I personally reviewed and interpreted this imaging study as follows: Imaging: CT Scan Radiologist's impression: Exam: CTA Chest With Contrast CTA Abdomen and Pelvis With Contrast Exam date and time: 04/26/2024 1:17 PM Age: 63 years old Clinical indication: Other: Hematemesis, abd pain TECHNIQUE: Imaging protocol: Computed tomographic angiography of the chest with contrast. Exam focused on the arteries. Computed tomographic angiography of the abdomen and pelvis with contrast. Exam focused on the arteries. 3D rendering (Not supervised by radiologist): MIP and/or 3D reconstructed images were created by the technologist. Contrast material: OMNIPAQUE 350; Contrast volume: 125 ml; Contrast route: INTRAVENOUS (IV); COMPARISON: No relevant prior studies available. FINDINGS: VASCULATURE: Pulmonary arteries: Normal. No pulmonary emboli. Aorta: Small amount of plaque within the distal portion of the aorta. Questionable penetrating ulcer along the 9-10 o'clock position of the aorta on image 4-76. Celiac trunk and mesenteric arteries: No occlusion or significant stenosis. Renal arteries: No occlusion or significant stenosis. Right iliac arteries: No occlusion or significant stenosis. Left iliac arteries: Plaque in the proximal portion of the common iliac artery results in 50-60% stenosis. No occlusion. CHEST: Lungs: Unremarkable. No consolidation. No masses. Pleural spaces: Unremarkable. No pneumothorax. No pleural effusion. Heart: Unremarkable. No cardiomegaly. No pericardial effusion. ABDOMEN AND PELVIS: Liver: No mass. Gallbladder and bile ducts: Unremarkable. No calcified stones. No ductal dilation. Pancreas: Unremarkable. No mass. No ductal dilation. Spleen: Unremarkable. No splenomegaly. Adrenal glands: Unremarkable. No mass. Kidneys and ureters: Unremarkable. No solid mass. No hydronephrosis. Stomach and bowel: Unremarkable. No obstruction. No mucosal thickening. Appendix: No evidence of appendicitis. Intraperitoneal space: Unremarkable. No free air. No significant fluid collection. Urinary bladder: Unremarkable. No mass. Reproductive: Unremarkable as visualized. Lymph nodes: Unremarkable. No enlarged lymph nodes. Bones/joints: [id number] degenerative changes of the osseous structures. No acute fracture. Soft tissues: Unremarkable. IMPRESSION: 1. Questionable penetrating ulcer along the 9-10 o'clock position of the infrarenal abdominal aorta on image 4-76. 2. Plaque within the midportion of the left common iliac artery results in moderate stenosis. Dictated and Authenticated by: John Robles MD. Ordering:ASHLEE Al MD Lab Data Lab results reviewed: Yes I reviewed the patient's lab results. Labs: Laboratory Tests Range/Units 04/26/24 04/26/24 04/26/24 11:40 13:57 14:40 WBC (4.4-10.8) 10^3/uL 13.25 H RBC (4.36-5.78) 10^6/uL 5.17 Hgb (13.5-17.5) g/dL 15.9 Hct (40.0-50.0) % 47.7 MCV (80-95) fL 92 MCH (27.0-33.0) pg 30.8 MCHC (32.0-36.0) % 33.3 RDW (11.8-14.1) % 13.2 Plt Count (130-400) 10^3/uL 286 MPV (8.0-11.0) fL 8.5 Immature Gran % % 0.7 Neutrophils % % 72.7 Lymphocytes % % 19.9 Monocytes % % 5.8 Eosinophils % % 0.4 Basophils % % 0.5 Nucleated RBC % (0.0-0.3) % 0.0 Absolute Neutrophils (1.2-6.7) 10^3/uL 9.63 H Absolute Lymphocytes (1.2-3.4) 10^3/uL 2.64 Absolute Monocytes (0.1-0.8) 10^3/uL 0.77 Absolute Eosinophils (0.0-0.7) 10^3/uL 0.05 Absolute Basophils (0.0-0.2) 10^3/uL 0.07 PT (9.1-11.1) sec 9.9 INR (0.9-1.1) 1.0 APTT (23.6-32.8) sec 23.7 Sodium (136-145) mmol/L 142 Potassium (3.5-5.1) mmol/L 4.1 Chloride (98-107) mmol/L 108 H Carbon Dioxide (21.0-32.0) mmol/L 25.7 Anion Gap (3-11) mmol/L 8.3 BUN (7-18) mg/dL 14 Creatinine (0.70-1.30) mg/dL 0.8 Est GFR (CKD-EPI 2020) (mL/min/1.73m2) 100.06 Glucose (74-106) mg/dL 165 H Calcium (8.5-10.1) mg/dL 8.9 Magnesium (1.8-2.4) mg/dL 2.0 Total Bilirubin (0.2-1.0) mg/dL 0.5 AST (15-37) U/L 16 ALT (16-63) U/L 26 Alkaline Phosphatase (46-116) U/L 87 Troponin I (< or =60) ng/L < 50 < 50 Total Protein (6.4-8.2) g/dL 7.2 Albumin (3.4-5.0) g/dL 3.7 Lipase (16-77) U/L 25 Urine Color (Yellow) Yellow Urine Clarity (Clear) Clear Urine pH (5-8) 5.5 Ur Specific Crum (1.005-1.025) 1.020 Urine Protein (Neg-Trace) mg/dL Negative Urine Ketones (Negative) mg/dL 40 H Urine Blood (Negative) Negative Urine Nitrite (Negative) Negative Urine Bilirubin (Negative) Negative Urine Urobilinogen (Up to 0.2) mg/dL 0.2 Ur Leukocyte Esterase (Negative) Negative Urine Glucose (Negative) mg/dL Negative Ethyl Alcohol (<10) mg/dL < 3.0 Add-On Test Request DONE Range/Units 04/26/24 15:25 WBC (4.4-10.8) 10^3/uL 17.15 H RBC (4.36-5.78) 10^6/uL 4.90 Hgb (13.5-17.5) g/dL 15.2 Hct (40.0-50.0) % 44.8 MCV (80-95) fL 91 MCH (27.0-33.0) pg 31.0 MCHC (32.0-36.0) % 33.9 RDW (11.8-14.1) % 13.3 Plt Count (130-400) 10^3/uL 257 MPV (8.0-11.0) fL 8.4 Immature Gran % % Neutrophils % % Lymphocytes % % Monocytes % % Eosinophils % % Basophils % % Nucleated RBC % (0.0-0.3) % Absolute Neutrophils (1.2-6.7) 10^3/uL Absolute Lymphocytes (1.2-3.4) 10^3/uL Absolute Monocytes (0.1-0.8) 10^3/uL Absolute Eosinophils (0.0-0.7) 10^3/uL Absolute Basophils (0.0-0.2) 10^3/uL PT (9.1-11.1) sec INR (0.9-1.1) APTT (23.6-32.8) sec Sodium (136-145) mmol/L Potassium (3.5-5.1) mmol/L Chloride (98-107) mmol/L Carbon Dioxide (21.0-32.0) mmol/L Anion Gap (3-11) mmol/L BUN (7-18) mg/dL Creatinine (0.70-1.30) mg/dL Est GFR (CKD-EPI 2020) (mL/min/1.73m2) Glucose (74-106) mg/dL Calcium (8.5-10.1) mg/dL Magnesium (1.8-2.4) mg/dL Total Bilirubin (0.2-1.0) mg/dL AST (15-37) U/L ALT (16-63) U/L Alkaline Phosphatase (46-116) U/L Troponin I (< or =60) ng/L Total Protein (6.4-8.2) g/dL Albumin (3.4-5.0) g/dL Lipase (16-77) U/L Urine Color (Yellow) Urine Clarity (Clear) Urine pH (5-8) Ur Specific Crum (1.005-1.025) Urine Protein (Neg-Trace) mg/dL Urine Ketones (Negative) mg/dL Urine Blood (Negative) Urine Nitrite (Negative) Urine Bilirubin (Negative) Urine Urobilinogen (Up to 0.2) mg/dL Ur Leukocyte Esterase (Negative) Urine Glucose (Negative) mg/dL Ethyl Alcohol (<10) mg/dL Add-On Test Request Quality:[facility] Health Related Social Needs: No Data to Display Sign Out Sign Out Data: Sign Out Comment: 63-year-old male alcoholic 6-12 beers a day. Presents via EMS with vomiting with red streaks since this morning. He did present diaphoretic. He is not orthostatic, H&H is stable denies any black or tarry stools. Pending [place] with [facility] [place] due to questionable penetrating ulcer on the infrarenal aorta. Patient is still complaining of weakness dizziness and unstable gait after 1.5 L of fluid patient has received 8 mg of Zofran. Ciwa score was 4 at the time of this dictation. No tremors or signs of withdrawal at this time. Last updated by Mikaela Alcala NP at 04/26/24 15:42 Discharge Plan Disposition Patient Disposition: Home Condition: Stable Discharge Details Clinical Impression: Gastritis Primary Care Provider: Ml Felton ED Provider: Hebert Saxena Home Meds and New Rx's Prescriptions: New pantoprazole 20 mg tablet,delayed release (DR/EC) 20 mg PO DAILY 30 Days Qty: 30 0RF Held ibuprofen 800 MG tablet 800 mg PO TID PRN PRN (Reason: Pain) Qty: 30 0RF Hold Instructions: Resume on 05/30/24. It's best to avoid NSAIDs when any concern for stomach ulcer- take Tylenol instead. Discharge Instructions Instructions: Pantoprazole (By mouth), Gastritis (ED) Additional Instructions: You were seen in the emergency department for your vomiting of blood this morning, you vomit here with some more minor streaking of blood in it. We did recheck your hemoglobin levels a few hours apart and there is no significant hemorrhage happening. The CT shows no bleeding esophageal varices, I suspect you have gastritis or peptic ulcer due to your correction alcohol use. I am prescribing you pantoprazole sent to [facility] in [place]. You likely need to start going to primary care appointments. The vascular surgeon reviewed your CT scan and would like you to start taking a baby aspirin. Please make an appointment with PCP to start a statin, you likely need a cholesterol panel drawn. Please try to take multivitamins that contain potassium, magnesium, vitamins B12, thiamine for your long-term alcohol use. It may take about 2 weeks for pantoprazole to calm down your stomach acid enough to show improvement in any ulcerative pathology, please note that this is empiric treatment and the only way to fully diagnose this is by getting a refe rral to general surgery for an upper endoscopy. Please return to the emergency department for any further profound weakness, any further vomiting of blood, chest pain, shortness of breath, high fevers, severe worsening abdominal pain. Referrals: Ml Felton NP [Primary Care Provider] - Discharge Data Discharge Date/Time-TO BE ENTERED AT DEPARTURE: 04/26/24 17:31
== END 2024-04-26 17:31 | disposition home or self-care (01) ==
PROVIDERS: Registered Nurse Emergency; Emergency Provider Physician Assistant; PCP Nurse Practitioner
DX: K29.70 Gastritis, unspecified, without bleeding (principal); R10.11 Right upper quadrant pain; R10.12 Left upper quadrant pain; F10.90 Alcohol use, unspecified, uncomplicated
CPT/HCPCS: 00123; 36415; 71275; 80053; 83690; 85027; 93005; 96361; 96374; 96375; 99285; 74174; 80320; 81003; 83735; 84484; 85025; 85610; 85730; 93010; 99283; J2405; J2470; J3490; Q9967

== ENCOUNTER 2024-07-09 01:11 | Outpatient (CLI) | payer MEDICAID, SELFPAY ==
--- OUTSIDE RECORDS SUMMARY | 2024-07-09 01:28 | XMS_ITS | Encounter Summary ---
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 Will Olivier DO [address] [place] [address] [facility] [address] [place] [id number] Referral ID Status Reason Start Date Expiration Date Visits Requested Visits Authorized [id number] Authorized Consult, Test & Treat PCP Updated and/or Approved 05/12/2024 11/11/2024 6 6 Encounter Details Date Type Department Care Team (Late st Contact Info) Description 05/27/2024 Transcribe Orders eDH Incoming Referrals [phone] Will Olivier DO [address] [place], [place] [id number] 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 no 04/30/2024 Feels Threatened by Someone no 04/02 Feels Unsafe at Home or Work/School no 04/30/2024 Physical Signs of Abuse Present no 04/30/2024 Sex and Gender Information Value Date Recorded Sex Assigned at Not on file Gender Identity Not on file Sexual Orientation Not on file documented as of this encounter Plan of Treatment Upcoming Encounters Date Type Department Care Team (Late st Contact Info) Description 12/13/2024 11:00 AM EST [place] [address] Juanita Moreau, ASSISTANT REFINERY OPERATOR [facility] [place] [address] Scheduled Referrals Name Type Priority Associated Diagnoses Orde r Schedule Referral to Neurology Outpatient Referral Routine 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
--- OUTSIDE RECORDS SUMMARY | 2024-07-09 01:28 | XMS_ITS | Encounter Summary ---
[place] [address] Care Team Providers Care Ink Technician Name Role Phone Ml Felton MIMI Primary Care Provider [phone] Reason for Visit * Reason Onset Date Comments Other 05/05/2024 IMPACT call Encounter Details Date Type Department Care Team (Late st Contact Info) Description 05/05/2024 [place]phone [place] [address] Lida Nicolas, RN Other (IMPACT call) Social History Tobacco Use Types Packs/Day Years Used Date Smoking Tobacco: Former Cigarettes 0.5 47.6 1 - 04/25/2024 Smokeless Tobacco: Former Chew Quit: 03/31/2004 Alcohol Use Standard Drinks/Week Comments Not Currently 12 (1 standard drink = 0.6 oz pu re alcohol) [facility] Inpatient Questions Answer Date Recorded Does Anyone [...] on file documented as of this encounter Miscellaneous Notes * Telephone Encounter - Lavinia Law RN - 05/13/2024 12:29 PM EDT IMPACT letter mailed to pt. * Telephone Encounter - Lida Nicolas, RN - 05/07/2024 12:32 PM EDT Second attempt made at IMPACT call, left vm requesting call back to office. * Telephone Encounter - Lida Nicolas, RN - 05/05/2024 9:04 AM EDT Called patient, left message requesting call back to office (IMPACT call attempt) documented in this encounter Plan of Treatment Upcoming Encounters Date Type Department Care Team (Late st Contact Info) Description 12/13/2024 11:00 AM EST Office [place] [address] Juanita Moreau APRN [facility] [place] [address] documented as of this encounter Visit Diagnoses Not on filedocumented in this encounter Care Teams Ink Technician Relationship Specialty Start Date End Date Ml Felton APRN [address] [place] [address] PCP - General Internal Medicine 04/30/24 documented as of this encounter
--- OUTSIDE RECORDS SUMMARY | 2024-07-09 01:28 | XMS_ITS | Clinical Summary ---
Author Organization [facility] Address [facility] [place] [address] Care Team Providers Care Automobile Upholsterer Name Role Phone Kristin Feltonyce Car LE Primary Care Provider + [phone] Allergies Active Allergy Reactions Criticality Noted Date Comments Bupropion Hcl CIS - Hives Medications Medication Sig Dispensed Refills Start Date End Date Status aspirin 81 mg chewable tablet Take 81 mg by mouth daily. 30 tablet 3 05/02/2024 Active atorvastatin (Lipitor) 40 mg tablet Take 1 tablet by mouth every evening. 90 tablet 3 05/01/2024 Active ondansetron ODT (Zofran-ODT) 4 mg disintegrating tablet Take 1 tablet by mouth every 6 hours as needed for Nausea. 20 tablet 05/01/2024 Active Additional Information Patient not taking.Reported on 06/08/2024 pantoprazole EC (Protonix) [address] tablet Take 1 tablet by mouth daily. 90 tablet 3 05/02/2024 Active amLODIPine (Norvasc) 5 mg tablet Take 1 tablet by mouth daily. 90 tablet 3 05/01/2024 Active losartan (Cozaar) 50 mg tablet Take 1 tablet by mouth Daily at Noon. 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 05/05/2024 [place] [address] Lida Nicolas, RN Other (IMPACT call) 04/30/2024 12:05 PM EDT - 05/01/2024 4:56 PM EDT Hospital Encounter Neurosciences and ENT Unit Level [address] [place] [address] Ferrari, MD Isaias Trinidad Jack E, MD Lukovits, Avery Larsen MD Stroke (Primary Dx) Discharge Disposition: Home 04/30/2024 Travel 04/26/2024 3:40 PM EDT Ancillary Procedure [place] [address] Carmelo Fish MD 04/26/2024 [place] [address] Adonay Lee MD from Last 3 Months Social History Tobacco Use Types Packs/Day Years Used Date Smoking Tobacco: Former Cigarettes 0.5 47.6 1 - 04/25/2024 Smokeless Tobacco: Former Chew Quit: 03/31/2004 Tobacco Cessation:Counseling Given: No Alcohol Use Standard Drinks/Week Comments Not Currently 12 (1 standard drink = 0.6 oz pu re alcohol) [facility] Inpatient Questions Answer Date Recorded [...] on file Sexual Orientation Not on file Last Filed Vital Signs Vital Sign Reading Time Taken Comments Blood Pressure 126/79 06/08/2024 7:29 AM EDT Pulse 84 06/08/2024 7:29 AM EDT Temperature 36.7 ??C (98.1 ??F) 05/01/2024 10:20 AM E DT Respiratory Rate 18 05/01/2024 4:00 AM EDT Oxygen Saturation 95% 05/01/2024 4:00 AM EDT Inhaled Oxygen Concentration - - Weight 83.9 kg (185 lb) 06/08/2024 7:29 AM EDT p t reported Height 177.8 cm (5' 10) 06/08/2024 7:29 AM EDT pt reported Body Mass Index 26.54 06/08/2024 7:29 AM EDT Plan of Treatment Upcoming Encounters Date Type Department Care Team (Late st Contact Info) Description 12/13/2024 11:00 AM EST Office [place] [id number] Juanita Moreau, [employer] [facility] [place] [address] [address] Health Maintenance Due Date Last Done Comments CT Colonography 1961 Colonoscopy 1961 Colorectal Cancer Screening 1961 FIT DNA 1961 FIT 1961 Sigmoidoscopy (10 year) with FIT yearly 1961 Sigmoidoscopy 1961 HIV screen 1979 Hepatitis C Screening 1979 Tdap adult 1980 Tetanus vaccine 1980 Zoster vaccine (1 of 2) 2011 Advance Directive 2016 Covid-19 Vaccine (1 - 2022-2 4 season) 2023 Influenza (Flu) vaccine (1 o f 1 - Influenza standard series) 08/01/2024 Diabetes Screening (HgbA1C o r Glucose) 05/01/2027 05/01/2024, 04/30/2024, 04/30/2024 Lipid Screening Discontinued 04/30/2024 Procedures Procedure Name Priority Date/Time Associated Diagnosis Comments SCAN DOC: TELEMETRY STRIPS 05/01/2024 7:54 AM EDT DIFFERENTIAL, AUTOMATED Routine 05/01/2024 5:51 AM EDT HEMOGRAM Routine 05/01/2024 5:51 AM EDT HEPATIC FUNCTION PANEL Routine 05/01/2024 5:51 AM EDT PHOSPHORUS Routine 05/01/2024 5:51 AM EDT MAGNESIUM Routine 05/01/2024 5:51 AM EDT BASIC METABOLIC PANEL Routine 05/01/2024 5:51 AM EDT CBC (WITH DIFF) Routine 05/01/2024 5:51 AM EDT URINALYSIS MICROSCOPIC EXAM STAT 05/01/2024 4:20 AM EDT URINALYSIS WITH REFLEX CULTURE STAT 05/01/2024 4:20 AM EDT MRI BRAIN WO CONTRAST STAT 04/30/2024 9:17 PM EDT SCAN DOC: TELEMETRY STRIPS 04/30/2024 7:48 PM EDT SCAN DOC: TELEMETRY STRIPS 04/30/2024 7:01 PM EDT HC TROPONIN T STAT 04/30/2024 3:[address] HEAD WO CONTRAST (GENERIC) STAT 04/30/2024 2:[address] ANGIOGRAM ABDOMEN AND PELVIS W CONTRAST STAT 04/30/2024 2:[address] CAROTIDS AND [place]OLUMNE OF [place] W CONTRAST STAT 04/30/2024 2:00 PM EDT BLOOD GAS VENOUS ([facility]) Routine 04/30/2024 1:26 PM EDT HC TROPONIN T STAT 04/30/2024 1:20 PM EDT PROTHROMBIN TIME STAT 04/30/2024 12:0 1 PM EDT APTT STAT 04/30/2024 12:01 PM EDT LIPID PANEL (REFLEX DIRECT LDL) STAT 04/30/2024 12:01 PM EDT HEMOGLOBIN A1C STAT 04/30/2024 12:01 PM EDT TSH CASCADE STAT 04/30/2024 12:01 PM EDT TROPONIN - SERIES STAT 04/30/2024 12: 01 PM EDT HEPATIC FUNCTION PANEL STAT 04/30/2024 12:01 PM EDT DIFFERENTIAL, AUTOMATED STAT 04/30/2024 12:01 PM EDT HEMOGRAM STAT 04/30/2024 12:01 PM EDT BASIC METABOLIC PANEL STAT 04/30/2024 12:01 PM EDT CBC (WITH DIFF) STAT 04/30/2024 12:01 PM EDT GOLD TUBE HOLD STAT 04/30/2024 12:01 PM EDT BLUE TUBE HOLD STAT 04/30/2024 12:01 PM EDT EKG 12-LEAD STAT 04/30/2024 11:46 AM EDT FILM LIBRARY STORAGE ONLY CT CHEST ABDOMEN PELVIS Routine 04/26/2024 3:35 PM EDT from Last 3 Months Results * Scan Doc: Telemetry Strips (05/01/2024 7:54 AM EDT) Only the most recent of3 resultswithin the time period is included. Narrative 05/01/2024 7:54 AM EDT Ordered by an unspecified provider. Scanning Provider MEDIA MGR SCAN EXT O RDR/RSLT * (ABNORMAL) Hemogram (05/01/2024 5:51 AM EDT) Only the most recent of2 resultswithin the time period is included. [facility] White Blood Cell 11.9(H) 4.0 - 9.5 x10(3)/[facility] Red Blood Cell 5.18 4.58 - 5.54 x10(6)/[facility] Hemoglobin 15.7 13.7 - 16.5 g/dL [facility] Hematocrit 46.1 40.5 - 48.5 % [facility] Mean Cell Volume 89.0 82.9 - 93.1 fL [facility] Mean Cell Hemoglobin 30.3 27.5 - 32.1 pg [facility] Mean Cell Hemoglobin Concentration 34.1 32.0 - 35.7 g/dL [facility] Platelet 264 145 - 357 x10(3)/[facility] RDW Standard Deviation 42.5 36.0 - 45.0 [facility] RDW coefficient of variation 13.0 11.4 - 13.8 % [facility] Mean Platelet Volume 8.5 7.6 - 12.9 [facility] NRBC% auto 0.0 % [facility] NRBC Absolute 0.000 0.000 - 0.000 x10(3)/[facility] Blood 05/01/2024 5:51 AM EDT 05/01/2024 6:04 AM EDT Narrative Resulting Agency Comment Spec In Lab Cas Hammer DO HEMATOLOGY ORDERABLE S [facility] [place] [address] * (ABNORMAL) Differential, Automated (05/01/2024 5:51 AM EDT) Only the most recent of2 resultswithin the time period is included. Neutrophil % 69.4 % [facility] Neutrophil Absolute 8.27(H) 1.70 - 6.10 x10(3)/[facility] Lymph % 21.2 % [facility] Lymphocytes Abs 2.5 0.9 - 3.2 x10(3)/[facility] Monocyte % 7.6 % [facility] Monocyte Abs 0.9 0.3 - 0.9 x10(3)/[facility] Eos % 0.5 % [facility] Eosinophils Abs 0.1 0.0 - 0.4 x10(3)/[facility] Basophil % 0.6 % [facility] Baso Absolute 0.1 0.0 - 0.1 x10(3)/[facility] Immature Gran % 0.70 % [facility] Comment: Immature granulocytes(IG's)percentage and absolute count will include metamyelocytes, myelocytes, and promyelocytes. Blood smears from CBCs yielding IG's will be scanned manually for concordance. If this scan disagrees with the automated IG or if promyelocytes are noted, a manual differential will be performed. Immature Gran Absolute 0.08(H) 0.00 - 0.04 x10(3)/[facility] Blood 05/01/2024 5:51 AM EDT 05/01/2024 6:04 AM EDT Narrative Resulting Agency Comment Spec In Lab Cas Hammer DO HEMATOLOGY ORDERABLE S [facility] [place] [address] * Phosphorus (05/01/2024 5:51 AM EDT) Phosphorus 3.2 2.5 - 4.5 mg/dL [facility] Blood 05/01/2024 5:51 AM EDT 05/01/2024 6:04 AM EDT Narrative Resulting Agency Comment Spec In Lab Avery Witt MD CHEMISTRY ORDERABL ES Performing Organization Address [facility]/ZIP Co de Phone Number [facility] [place] [address] * Magnesium (05/01/2024 5:51 AM EDT) Magnesium 0.99 0.69 - 1.07 mmol/L [facility] Blood 05/01/2024 5:51 AM EDT 05/01/2024 6:04 AM EDT Narrative Resulting Agency Comment Spec In Lab Avery Witt MD CHEMISTRY ORDERABL ES Performing Organization Address [facility] de Phone Number [facility] [place] [address] * (ABNORMAL) Hepatic Function Panel (05/01/2024 5:51 AM EDT) Only the most recent of2 resultswithin the time period is included. Pathologist [facility] Protein, Total 6.5 6.1 - 8.0 g/dL [facility] Albumin 3.8 3.2 - 5.2 g/dL [facility] Aspartate Aminotransferase 43(H) 0 - 39 unit/L [facility] Alanine Aminotransferase 28 0 - 55 unit/L [facility] Alkaline Phosphatase 76 40 - 130 unit/L [facility] Bilirubin, Total 0.5 0.2 - 1.3 mg/dL [facility] Bilirubin, Direct 0.1 0.0 - 0.3 mg/dL [facility] Blood 05/01/2024 5:51 AM EDT 05/01/2024 6:04 AM EDT Narrative Resulting Agency Comment Spec In Lab Avery Witt MD CHEMISTRY ORDERABL ES Performing Organization Address [facility]/ZIP Co de Phone Number [facility] [place] [address] * (ABNORMAL) Basic Metabolic Panel (non-fasting) (05/01/2024 5:51 AM EDT) Only the most recent of2 resultswithin the time period is included. Glucose 111 65 - 199 mg/dL [facility] Comment:Diabetes: >=200 mg/d L plus symptoms Blood Urea Nitrogen 13 10 - 20 mg/dL [facility] Creatinine 0.71(L) 0.80 - 1.50 mg/dL [facility] Sodium 138 135 - 145 mmol/L [facility] Potassium 3.5 3.5 - 5.0 mmol/L [facility] Comment: Please note: ??Patients with WBC >100,000 may have falsely elevated Potassium levels. ??For accurate Potassium quantification in these patients send serum separator tube (gold top) for subsequent determinations. ??Contact the Clinical Chemistry Laboratory if there are any questions. Chloride 103 98 - 107 mmol/L [facility] Carbon Dioxide 24 22 - 31 mmol/L [facility] Anion Gap 11 5 - 15 mmol/L [facility] Calcium 9.1 8.5 - 10.5 mg/dL [facility] Est Glomerular Filtration Rate 104 >=60 mL/min/1. 73 m?? [facility] Comment: This patient's estimated GFR was calculated using the 2020 CKD-EPI equation. The estimated GFR can vary from the measured GFR by up to 30% in the absence of rapidly changing kidney function. Assessment of the estimated GFR is not appropriate when creatinine concentrations are rapidly changing. For clinical situations in which a more precise estimate of GFR is necessary, consider alternative methods of GFR estimation such as a 24-hour urine creatinine clearance. Assignment of CKD stage 1-5 for patients with an eGFR near the transition point between stages may be based on clinical assessment of muscle mass and symptoms in addition to eGFR. Blood 05/01/2024 5:51 AM EDT 05/01/2024 6:04 AM EDT Narrative Resulting Agency Comment Spec In Lab Avery Witt MD CHEMISTRY ORDERABL ES [facility] [place] [address] * (ABNORMAL) Urinalysis Microscopic Exam (05/01/2024 4:20 AM EDT) RBC, Urine 5(H) 0 - 3 /HPF [facility] WBC, Urine 1 0 - 3 /HPF [facility] Clean Catch Urine 05/01/2024 4:20 AM EDT 05/01/2024 4:39 AM EDT Narrative Resulting Agency Comment Spec In Lab Cas Hammer DO URINE ORDERABLES Performing Organization Address [facility]/ZIP Co de Phone Number [facility] [place] [address] * (ABNORMAL) Urinalysis with reflex Culture (05/01/2024 4:20 AM EDT) Glucose, Urine Dipstick Negative Negative mg/dL [facility] Protein, Urine Dipstick Trace(A) Negative mg/dL [facility] Bilirubin, Urine Dipstick Negative Negative mg/dL [facility] Comment: Clinical correlation required for positive Urine Bilirubin results as false positive may occur with some drugs and drug related products. If a false positive is suspected a serum total bilirubin should be considered if clinically indicated. Urobilinogen, Urine Dipstick Normal Normal mg/dL [facility] pH, Urn (dipstick) 6.0 5.0 - 8.0 [facility] Blood, Urine Dipstick Negative Negative mg/dL [facility] Ketone, Urine Dipstick Trace(A) Negative mg/dL [facility] Nitrite, Urine Dipstick Negative Negative [facility] Leukocytes, Urine Dipstick Negative Negative [facility] Appearance, Urine Dipstick Clear Clear [facility] Specific [place] Urine Automated >=1.030(A) 1.005 - 1.030 [facility] Color, Urine Dipstick Yellow Yellow [facility] Reflex to Culture No [facility] Clean Catch Urine 05/01/2024 4:20 AM EDT 05/01/2024 4:39 AM EDT Narrative Resulting Agency Comment Spec In Lab Avery Witt MD URINE ORDERABLES [facility] [place] [address] * MRI Brain wo Contrast (04/30/2024 9:17 PM EDT) WORKSTATION ID [id number] RAD Anatomical Region Laterality Modality Head Magnetic Resonan ce Impressions 04/30/2024 9:32 PM EDT 1. ??Bilateral inferior cerebellar infarcts. 2. ??No posterior fossa mass effect. 3. ??Absent flow-void within the high cervical right vertebral artery concordant with recent CTA findings, concerning for vertebral artery dissection or occlusion. Thank you for letting us participate in the care of this patient. ??If you are a health care provider and have any questions regarding this report, please contact the number below. ??For patients who have questions please contact the health direct care counselor that requested your imaging first. ? Narrative 04/30/2024 9:32 PM EDT EXAMINATION: MRI BRAIN WO CONTRAST CLINICAL HISTORY: Pt p/w dizziness, nausea, and gait disturbance. 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 TECHNIQUE: MRI of the brain performed without intravenous contrast administration. COMPARISON: Head CT 04/30/2024. CT angiogram carotids and [place] of [place] 04/30/2024. FINDINGS: Ventricles are normal in size. Basal cisterns are patent. No mass effect or midline shift. Multiple areas of restricted diffusion within the bilateral inferior cerebellum, concordant with recent CT findings. There is T2 hyperintense abnormality associated with areas of infarct consistent with edema. Additional T2 hyperintense lesions are present within the bilateral centrum semiovale and periventricular white matter, a nonspecific finding most commonly seen in the context of small vessel disease. The orbits are unremarkable. No abnormal signal within the paranasal sinuses. Small quantity of fluid signal within the bilateral mastoid air cells. Absent flow-void within the visualized right vertebral artery at the level of C1 with diminutive right intradural vertebral artery demonstrating an expected flow void. No susceptibility related signal loss to suggest microhemorrhage. Normal marrow space signal. Procedure Note Aj Ortiz MD - 04/30/2024 EXAMINATION: MRI BRAIN WO CONTRAST CLINICAL HISTORY: Pt p/w dizziness, nausea, and gait disturbance. CTHwith findings suggestive of BL PICA territory infarcts. TECHNIQUE: MRI of the brain performed without intravenous contrast administration. COMPARISON: Head CT 04/30/2024. CT angiogram carotids and [place] 04/30/2024. FINDINGS: Ventricles are normal in size. Basal cisterns are patent. No mass effector midline shift. Multiple areas of restricted diffusion within thebilateral inferior cerebellum, concordant with recent CT findings. There is T2 hyperintense abnormality associated with areas of infarct consistent withedema. Additional T2 hyperintense lesions are present within the bilateralcentrum semiovale and periventricular white matter, a nonspecific finding mostcommonly seen in the context of small vessel disease. The orbits are unremarkable.No abnormal signal within the paranasal sinuses. Small quantity of fluidsignal within the bilateral mastoid air cells. Absent flow-void within thevisualized right vertebral artery at the level of C1 with diminutive rightintradural vertebral artery demonstrating an expected flow void. No susceptibilityrelated signal loss to suggest microhemorrhage. Normal marrow space signal. IMPRESSION 1. Bilateral inferior cerebellar infarcts. 2. No posterior fossa mass effect. 3. Absent flow-void within the high cervical right vertebral arteryconcordant with recent CTA findings, concerning for vertebral artery dissection or occlusion. Thank you for letting us participate in the care of this patient. If youare a health care provider and have any questions regarding this report,please contact the number below. For patients who have questions please contactthe health direct care counselor that requested your imaging first. Avery Witt MD IM MRI ORDERABLES * Troponin (04/30/2024 3:27 PM EDT) Only the most recent of3 resultswithin the time period is included. [facility] Troponin-T, High Sensitivity 7 <=22 ng/L [facility] Comment: This patient's troponin T concentration was determined using the Dina 5th Generation troponin T assay. The 99th percentile for Troponin T for this test is 14 ng/L for females, and 22 ng/L for males. According to the fourth universal definition of myocardial infarction, the term acute myocardial infarction should be used when there is acute myocardial injury with clinical evidence of acute myocardial ischemia and with detection of a rise and/or fall of cardiac troponin values with at least one value above the 99th percentile and at least one of the following: - Symptoms of myocardial ischemia; - New ischemic ECG changes; - Development of pathological Q waves; - Imaging evidence of new loss of viable myocardium or new regional wall motion abnormality in a pattern consistent with an ischemic etiology; - Identification of a coronary thrombus by angiography or autopsy (not for type 2 or 3 MIs) Serial measurement of troponin and the change in troponin concentration over time (delta) is crucial for the diagnosis of acute myocardial infarction. Guidance on the interpretation of the new 5th Generation Troponin T values and the delta troponin value can be found in the [facility] Test Catalog Troponin - [facility] Test Catalog Reference: Fourth [place] Definition of Myocardial Infarction. 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 Patent hypoplastic intradural right vertebral artery, with patent right-sided PICA. Left PICA not well visualized. Normal-appearing dominant left vertebral artery. No significant carotid disease, or additional intracranial abnormality on CTA. There is multilevel degenerative spondylosis with prominent facet arthropathy on the right side, where facet hypertrophy may significantly encroach upon the right C6-C7 transverse foramen, potentially compressing the the V1/V2 junction of the vertebral artery. Thank you for letting us participate in the care of this patient. ??If you are a health care provider and have any questions regarding this report, please contact the number below. ??For patients who have questions please contact the health direct care counselor that requested your imaging first. ? Electronically signed by: Tavo Guzman DO, [facility] ??([phone]), at 04/30/2024 2:28 PM Narrative 04/30/2024 2:28 PM EDT EXAMINATION: CT ANGIOGRAM CAROTIDS AND [place]OLUMNE OF [place] CLINICAL HISTORY: sudden onset dizziness, n/v unresolving TECHNIQUE: CTA of the head and neck performed after the intravenous administration of contrast. . MIP and 3-D volumetric reconstructions were created. COMPARISON: None FINDINGS: CTA NECK: The aortic arch, proximal great vessels and their ostia are patent, without evidence of significant stenosis. There is no evidence of significant stenosis, dissection or aneurysm within the cervical segments of the carotid arteries or left vertebral artery. The right vertebral artery is hypoplastic, and occludes appears occluded at the proximal V1 segment, through the majority of its extracranial course. There is intermittent opacification of the distal mid to distal V2 segments. CTA HEAD: The hypoplastic right-sided V4 segment and right-sided PICA are patent. The dominant left vertebral artery is patent, and normal in appearance. Left PICA is not well visualized, and may be supplied by the right side. The basilar artery and its branches appear unremarkable. There is a patent right sided P-comm and P1 segment of the INSTRUMENT SPECIALIST. Left P-comm is not identified. There are patent bilateral A1 segments of the ACAs, and a patent A-comm. Intracranial internal carotid artery segments are patent. There is no large vessel occlusion or significant stenosis identified of the proximal anterior or middle cerebral artery segments. There are no saccular aneurysms identified. There is multilevel degenerative spondylosis with prominent facet arthropathy on the right side, where facet hypertrophy may significantly encroach upon the right C6-C7 transverse foramen, potentially compressing the vertebral artery. Procedure Note Tavo Guzman, DO - 04/30/2024 EXAMINATION: CT ANGIOGRAM CAROTIDS AND TUOLUMNE OF [place] CLINICAL HISTORY: sudden onset dizziness, n/v unresolving TECHNIQUE: CTA of the head and neck performed after the intravenous administrationof contrast. . MIP and 3-D volumetric reconstructions were created. COMPARISON: None FINDINGS: CTA NECK: The aortic arch, proximal great vessels and their ostia arepatent, without evidence of significant stenosis. There is no evidence of significant stenosis, dissection or aneurysmwithin the cervical segments of the carotid arteries or left vertebral artery. The right vertebral artery is hypoplastic, and occludes appears occludedat the proximal V1 segment, through the majority of its extracranial course.There is intermittent opacification of the distal mid to distal V2 segments. CTA HEAD: The hypoplastic right-sided V4 segment and right-sided PICA are patent. The dominant left vertebral artery is patent, and normal in appearance. Left PICA is not well visualized, and may be supplied by the right side. The basilar artery and its branches appear unremarkable. There is a patent right sided P-comm and P1 segment of the INSTRUMENT SPECIALIST. LeftP-comm is not identified. There are patent bilateral A1 segments of the ACAs, and a patent A-comm. Intracranial internal carotid artery segments are patent. There is nolarge vessel occlusion or significant stenosis identified of the proximalanterior or middle cerebral artery segments. There are no saccular aneurysms identified. There is multilevel degenerative spondylosis with prominent facetarthropathy on the right side, where facet hypertrophy may significantly encroach uponthe right C6-C7 transverse foramen, potentially compressing the vertebralartery. 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 Patent hypoplastic intradural right vertebral artery, with patentright-sided PICA. Left PICA not well visualized. Normal-appearing dominant left vertebral artery. No significant carotid disease, or additional intracranial abnormality onCTA. There is multilevel degenerative spondylosis with prominent facetarthropathy on the right side, where facet hypertrophy may significantly encroach uponthe right C6-C7 transverse foramen, potentially compressing the the V1/T1mltagqbp of the vertebral artery. Thank you for letting us participate in the care of this patient. If youare a health care provider and have any questions regarding this report,please contact the number below. For patients who have questions please contactthe health direct care counselor that requested your imaging first. Electronically signed by: Tavo Guzman DO, [facility]([phone]), at 04/30/2024 2:28 PM Nahomy Ferrari MD [facility] [place] CT ORDERABLES * CT Angiogram Abdomen & Pelvis w Contrast (Generic) (04/30/2024 2:00 PM EDT) WORKSTATION ID [id number] RAD Anatomical Region Laterality Modality Abdomen, Pelvis Computed Tomogra phy Impressions 04/30/2024 3:00 PM EDT 1. ??No acute findings in the chest or abdomen to explain dizziness or chest pain. 2. ??Mural irregularity of the right common iliac artery may represent a small focus of plaque erosion. I have personally reviewed the image(s) and the resident's interpretation and agree with the findings, Ivan Zuniga MD at 04/30/2024 3:00 PM Thank you for letting us participate in the care of this patient. ??If you are a health care provider and have any questions regarding this report, please contact the number below. ??For patients who have questions please contact the health direct care counselor that requested your imaging first. ? Electronically signed by: Ivan Zuniga MD, [facility] ([phone]), at 04/30/2024 3:00 PM Narrative 04/30/2024 3:00 PM EDT EXAMINATION: CT ANGIOGRAM ABDOMEN AND PELVIS W CONTRAST (GENERIC) CLINICAL HISTORY: Dizziness, chest pain; c/f aortic pathology TECHNIQUE: Helical CT angiogram of the chest, abdomen and pelvis before and after the intravenous administration of ??125 cc of Omnipaque 350. Maximum intensity projection (MIP) were reformatted. 3-D images were generated on an independent workstation. COMPARISON: CTA chest abdomen pelvis 04/26/2024 FINDINGS: VASCULAR FINDINGS Heart: Normal size. Thoracic aorta: No stenosis, dissection, or aneurysm. Arch branch vessel origins: Normal three-vessel configuration. No stenosis. Pulmonary arteries: No central filling defects. Abdominal aorta: Mild mostly soft circumferential atheroma. No stenosis or aneurysm. Celiac: No stenosis. SMA: No stenosis. Right renal artery: No stenosis. Left renal artery: No stenosis. KEATON: No stenosis. Right: Common iliac artery: Just proximal to the external/internal bifurcation there is a subtle mural irregularity with a small tract of contrast outside of the vessel lumen (series 10, image and 20). No stenosis. Internal iliac artery: No stenosis. External iliac artery: No stenosis. Common femoral artery: No stenosis. Left: Common iliac artery: Moderate proximal stenosis just distal to the bifurcation. Internal iliac artery: Mild less than 50% stenosis at the origin. External iliac artery: No stenosis. Common femoral artery: No stenosis. NON-VASCULAR FINDINGS Lungs and large airways: Mild bibasilar atelectasis. The airways are widely patent. Pleura: No effusion. Mediastinum and zach: Normal. Liver: Normal size and attenuation without lesions. Bile ducts: Nondilated. Gallbladder: No calcified gallstones. Normal caliber wall. Pancreas: Normal attenuation without ductal dilatation. Spleen: Normal. Adrenals: Normal. Kidneys: Normal. Urinary Bladder: Normal. Lymph Nodes: No enlarged lymph nodes. Bowel: Nondilated, no wall thickening. Normal appendix. Single proximal sigmoid colon diverticulum. ?? Peritoneum and retroperitoneum: No hemorrhage. No pneumoperitoneum. No fluid collection or mesenteric inflammation. Abdominal wall: Tiny fat-containing umbilical hernia. Bilateral fat-containing inguinal hernias. Reproductive organs: Normal contours. Osseous structures: Bone island of L3. No suspicious lesions. Procedure Note Ivan Zuniga MD - 04/30/2024 EXAMINATION: CT ANGIOGRAM ABDOMEN AND PELVIS W CONTRAST (GENERIC) CLINICAL HISTORY: Dizziness, chest pain; c/f aortic pathology TECHNIQUE: Helical CT angiogram of the chest, abdomen and pelvis beforeand after the intravenous administration of 125 cc of Omnipaque 350.Maximum intensity projection (MIP) were reformatted. 3-D images were generated george independent workstation. COMPARISON: CTA chest abdomen pelvis 04/26/2024 FINDINGS: VASCULAR FINDINGS Heart: Normal size. Thoracic aorta: No stenosis, dissection, or aneurysm. Arch branch vessel origins: Normal three-vessel configuration. Nostenosis. Pulmonary arteries: No central filling defects. Abdominal aorta: Mild mostly soft circumferential atheroma. No stenosisor aneurysm. Celiac: No stenosis. SMA: No stenosis. Right renal artery: No stenosis. Left renal artery: No stenosis. KEATON: No stenosis. Right: Common iliac artery: Just proximal to the external/internal bifurcationthere is a subtle mural irregularity with a small tract of contrast outside of thevessel lumen (series 10, image and 20). No stenosis. Internal iliac artery: No stenosis. External iliac artery: No stenosis. Common femoral artery: No stenosis. Left: Common iliac artery: Moderate proximal stenosis just distal to thebifurcation. Internal iliac artery: Mild less than 50% stenosis at the origin. External iliac artery: No stenosis. Common femoral artery: No stenosis. NON-VASCULAR FINDINGS Lungs and large airways: Mild bibasilar atelectasis. The airways arewidely patent. Pleura: No effusion. Mediastinum and zach: Normal. Liver: Normal size and attenuation without lesions. Bile ducts: Nondilated. Gallbladder: No calcified gallstones. Normal caliber wall. Pancreas: Normal attenuation without ductal dilatation. Spleen: Normal. Adrenals: Normal. Kidneys: Normal. Urinary Bladder: Normal. Lymph Nodes: No enlarged lymph nodes. Bowel: Nondilated, no wall thickening. Normal appendix. Single proximalsigmoid colon diverticulum. Peritoneum and retroperitoneum: No hemorrhage. No pneumoperitoneum. Nofluid collection or mesenteric inflammation. Abdominal wall: Tiny fat-containing umbilical hernia. Bilateralfat-containing inguinal hernias. Reproductive organs: Normal contours. Osseous structures: Bone island of L3. No suspicious lesions. IMPRESSION 1. No acute findings in the chest or abdomen to explain dizziness orchest pain. 2. Mural irregularity of the right common iliac artery may represent asmall focus of plaque erosion. I have personally reviewed the image(s) and the resident's interpretationand agree with the findings, Ivan Zuniga MD at 04/30/2024 3:00 PM Thank you for letting us participate in the care of this patient. If youare a health care provider and have any questions regarding this report,please contact the number below. For patients who have questions please contactthe health direct care counselor that requested your imaging first. 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 No intracranial hemorrhage or mass effect. Thank you for letting us participate in the care of this patient. ??If you are a health care provider and have any questions regarding this report, please contact the number below. ??For patients who have questions please contact the health direct care counselor that requested your imaging first. ? Electronically signed by: Tavo Guzman DO [facility] ??([phone]), at 04/30/2024 2:07 PM Narrative 04/30/2024 2:07 PM EDT EXAMINATION: CT HEAD WO CONTRAST (GENERIC) CLINICAL HISTORY: sudden onset dizziness, n/v unresolving TECHNIQUE: CT head performed without intravenous contrast administration. COMPARISON: None FINDINGS: There is no acute intracranial hemorrhage or mass effect. There is no extra axial collection or ventricular dilation. Hypoattenuating foci noted within the posterior inferior cerebellar hemispheres bilaterally suggestive of infarcts, with concern for acute/subacute components, given history. There is no accompanying hemorrhage or mass effect. No evidence of significant inflammatory sinonasal or mastoid disease. No acute osseous findings. Procedure Note Tavo Guzman DO - 04/30/2024 EXAMINATION: CT HEAD WO CONTRAST (GENERIC) CLINICAL HISTORY: sudden onset dizziness, n/v unresolving TECHNIQUE: CT head performed without intravenous contrast administration. COMPARISON: None FINDINGS: There is no acute intracranial hemorrhage or mass effect. There is noextra axial collection or ventricular dilation. Hypoattenuating foci notedwithin the posterior inferior cerebellar hemispheres bilaterally suggestive ofinfarcts, with concern for acute/subacute components, given history. There is no accompanying hemorrhage or mass effect. No evidence of significant inflammatory sinonasal or mastoid disease. No acute osseous findings. IMPRESSION Findings of bilateral PICA distribution infarcts, with suspectedacute/subacute component. No intracranial hemorrhage or mass effect. Thank you for letting us participate in the care of this patient. If youare a health care provider and have any questions regarding this report,please contact the number below. For patients who have questions please contactthe health direct care counselor that requested your imaging first. Electronically signed by: Tavo Guzman DO, [facility]([phone]), at 04/30/2024 2:07 PM Nahomy Ferrari MD IMG CT ORDERABLES * (ABNORMAL) Blood Gas Venous (NL) (04/30/2024 1:26 PM EDT) pH, Venous 7.38 7.32 - 7.42 [facility] PCO2, Venous 48 41 - 51 mmHg [facility] PO2, Venous 33 25 - 40 mmHg [facility] Bicarbonate, Venous 27.6 mmol/L [facility] Base Excess, Venous 2.5 mmol/L [facility] Hgb Blood Gas 17.4(H) 13.7 - 16.5 g/dL [facility] Oxyhemoglobin, Venous 62.0 % [facility] Carboxyhemoglob in, Venous 1.1 % [facility] Comment: Nonsmokers: 0.5-1.5% COHB Smokers: Variable, but usually less than 10% Toxic: 20-30% COHB Lethal: Greater than 60% COHB Methemoglobin, Venous 0.3 <=1.5 % [facility] Na Whole Blood 140 135 - 145 mmol/L [facility] K Whole Blood 3.6 3.5 - 5.0 mmol/L [facility] Comment: Please note: Patients with WBC >100,000 may have falsely elevated Potassium levels. Contact the Clinical Chemistry Laboratory if there are any questions. ICa Whole Blood 1.19 1.15 - 1.33 mmol/L [facility] Comment: Note: ??Total bilirubin higher than 20 mg/dL may lead to falsely low ionized calcium. CL Whole Blood 101 98 - 107 mmol/L [facility] Gluc Whole Bld 101 65 - 199 mg/dL [facility] Comment:Diabetes: >=200 mg/d L plus symptoms Lactate WB 1.3 0.5 - 2.2 mmol/L [facility] Blood Gas Source Venous [facility] Blood Venous Draw / Unknown 04/30/2024 1:26 PM EDT 04/30/2024 1:39 PM EDT Narrative Resulting Agency Comment Spec In Lab Angelina Navarrete MD CHEMISTRY ORDERABLES [facility] [place] [address] * TSH [place] (04/30/2024 12:01 PM EDT) Thyroid Stimulating Hormone 2.81 0.27 - 4.20 mcIU/mL [facility] Comment: Reference Interval (mcIU/mL): Females: ??First Trimester: 0.23-3.88 ??Second Trimester: 0.22-3.90 ??Third Trimester: 0.44-4.66 Blood No Charge / Unknown 04/30/2024 12:01 PM EDT 04/30/2024 12:13 PM EDT Narrative Resulting Agency Comment Spec In Lab Nahomy Ferrari MD CHEMISTRY ORDERABLES Performing Organization Address City/[facility]/ZIP Co de Phone Number [facility] [place] [address] * Gold Tube HOLD (04/30/2024 12:01 PM EDT) Gold Hold Sample in lab. [facility] Blood 04/30/2024 12:0 1 PM EDT 04/30/2024 12:11 PM EDT Nahomy Ferrari MD CHEMISTRY ORDERABLES [facility] [place] [address] * Blue Tube HOLD (04/30/2024 12:01 PM EDT) Blue Hold Sample in lab. [facility] Blood 04/30/2024 12:0 1 PM EDT 04/30/2024 12:11 PM EDT Nahomy Ferrari MD HEMATOLOGY ORDERABLE S Performing Organization Address [facility] Co de Phone Number [facility] [place] [address] * APTT (04/30/2024 12:01 PM EDT) Partial Thromboplastin Time 31 25 - 37 sec [facility] Comment: The PTT is NOT appropriate for heparin monitoring. Use the Anti-Xa level for heparin monitoring (HEP UFH) or LMWH monitoring (HEP LMW). A PTT less than 37 seconds generally indicates adequate hemostasis. Blood No Charge / Unknown 04/30/2024 12:01 PM EDT 04/30/2024 12:11 PM EDT Narrative Resulting Agency Comment Spec In Lab Reshma Shaw MD HEMATOLOGY ORDERABLE S Performing Organization Address [facility] de Phone Number [facility] [place] [address] * Prothrombin Time (04/30/2024 12:01 PM EDT) Prothrombin Time 12.4 9.4 - 12.5 sec [facility] International Normalization Ratio 1.1 [facility] Comment: An INR <2.0 indicates adequate procoagulant activity for hemostasis in most patients without underlying bleeding disorders, though the INR may not adequately reflect hemostatic capacity in patients with liver disease and synthetic impairment. The recommended target INR range for therapeutic anticoagulation is 2.0 ? 3.0 for most applications, though lower and higher ranges may be appropriate depending on clinical circumstances. Blood No Charge / Unknown 04/30/2024 12:01 PM EDT 04/30/2024 12:11 PM EDT Narrative Resulting Agency Comment Spec In Lab Reshma Shaw MD HEMATOLOGY ORDERABLE S Performing Organization Address City/[facility]/ZIP Co de Phone Number [facility] [place] [address] * (ABNORMAL) Hemoglobin A1c (04/30/2024 12:01 PM EDT) Pathologist [facility] Hemoglobin A1c 5.8(H) 4.3 - 5.6 % [facility] Comment: Reference Range: 4.3 - 5.6% 5.7 - 6.4% - Increased Risk of Developing Diabetes Mellitus >= 6.5% - Consistent with diagnosis of Diabetes Mellitus In the absence of hyperglycemia (i.e. plasma glucose > 200 mg/dL) or classic symptoms of hyperglycemia a repeat measurement of HbA1c should be performed on a separate sample to confirm the diagnosis. Diagnosis and Classification of Diabetes Mellitus, Diabetes Care 2013; 36: Suppl. 1, S67-48 Estimated Average Glucose 119 mg/dL [facility] Blood Venous Draw / Unknown 04/30/2024 12:01 PM EDT 04/30/2024 3:26 PM EDT Narrative Resulting Agency Comment Spec In Lab Angelina Navarrete MD CHEMISTRY ORDERABLES Performing Organization Address City/[facility]/ZIP Co de Phone Number [facility] [place] [address] * Lipid Panel (Reflex Direct LDL) (04/30/2024 12:01 PM EDT) [facility] Cholesterol, Total 201 mg/dL [facility] Comment: Desirable: ? <200 mg/dL Borderline High: 200-239 mg/dL Higher: ?>ek=518 mg/dL Triglyceride 136 mg/dL [facility] Comment: Normal: ?<150 mg/dL Borderline High: 150-199 mg/dL High: ?200-499 mg/dL Very High: ? >bv=625 mg/dL HDL Cholesterol 39 mg/dL [facility] Comment: Females: High Risk: <50 mg/dL Males: High Risk: <40 mg/dL LDL Cholesterol 135 mg/dL [facility] Comment: Desirable: ? <100 mg/dL Above Desirable: 100-129 mg/dL Borderline High: 130-159 mg/dL High: ?160-189 mg/dL Very High: ? >nr=596 mg/dL Lipid Interpretation See Note [facility] Comment: It is important to review the results of your lipid panel with your health care provider. You can compare your lipid results to the ranges below and whether they are in the desirable range. These ranges are only meant to be used for people without known cardiac disease, history of stroke, or peripheral vascular disease (blockages in the leg arteries or diabetes). If ??you have one of these conditions, your desirable LDL-C (bad cholesterol) will likely be even lower. ACC/AHA Guidelines (most recently Wanda et al. JACC 09/03/22): For individuals with atherosclerotic cardiovascular disease (ASCVD)or LDL >co=752 mg/dL, use a high-intensity statin (40-80 mg atorvastatin or 20-40 mg rosuvastatin with goal >or=50% LDL reduction) For individuals with diabetes, age 40-75 without ASCVD, moderate-intensity statin (goal 30-49% LDL reduction); consider high intensity statin for those with increased risk. For adults without diabetes or ASCVD, aged 40-75 with LDL 70-189 mg/dL, estimate 10 year ASCVD risk with smartphrase .ASCVDRISK or Dynamed Decisions. If 10 year risk is 7.5%-19.9% (intermediate risk), consider moderate intensity statin based on risk enhancers and patient preference. Consider coronary artery calcium test (CT) if there is concern regarding the benefit of a statin. If ten year risk is >or=20%, initiate high-intensity statin. Evaluate for secondary causes of triglycerides >500 mg/dL or LDL >190 mg/dL. Lifestyle modification is a critical component of ASCVD risk reduction. If not reaching LDL goals on maximally tolerated statin, consider ezetimibe and/or a PCSK9 inhibitor: Target for primary prevention: LDL<100 Target for those with ASCVD or diabetes and 10-year risk >or=20%: LDL<70 Target for those with very high risk ASCVD: LDL<55 (Very high risk being the presence of 2 or more of: recent acute coronary syndrome, past myocardial infarction, ischemic stroke, symptomatic peripheral artery disease) Blood Venous Draw / Unknown 04/30/2024 12:01 PM EDT 04/30/2024 12:13 PM EDT Narrative Resulting Agency Comment Spec In Lab Angelina Navarrete MD CHEMISTRY ORDERABLES Performing Organization Address City/[facility] Co de Phone Number [facility] [place] [address] * EKG 12 Lead (04/30/2024 11:46 AM EDT) Ventricular rate 64 BPM MUSE SYSTEM Atrial Rate 64 BPM MUSE SYSTEM P-R Interval 154 ms MUSE SYSTEM QRS Duration 92 ms MUSE SYSTEM Q-T Interval 396 ms MUSE SYSTEM QTC Calculated (Bezet) 408 ms MUSE SYSTEM Calculated P [place] 72 degrees MUSE SYSTEM Calculated R [place] -35 degrees MUSE SYSTEM Calculated T [place] 59 degrees MUSE SYSTEM INTERPRETATION Normal sinus rhythm Left axis deviation Abnormal ECG No previous ECGs available Confirmed by MD MICHELLE, SAMARIA ([id number]) on 04/30/2024 12:59:47 PM MUSE SYSTEM 04/30/2024 11:4 6 AM EDT 04/30/2024 12:59 PM EDT Nahomy Ferrari MD ECG ORDERABLES Performing Organization Address City/[facility] Co de Phone Number MUSE SYSTEM * Film Library- Storage Only CT Chest Abdomen Pelvis (04/26/2024 3:35 PM EDT) Narrative GARRY - 04/26/2024 3:35 PM EDT This exam is auto-finalizing. It's purpose is for storage only. Carmelo Fish MD IMG FILM LIBRARY ORD ERABLES Performing Organization Address City/[facility]/ZIP Co de Phone Number [place]Y [place] from Last 3 Months Advance Directives * Attempt Cardiopulmonary Resuscitation - Inpatient (Latest Code Status on File) Date Activated Date Inactivated Comments 04/30/2024 4:27 PM 05/01/2024 7:01 PM Question Answer Comments Code Status decision made by: Patient Care Teams Automobile Upholsterer Relationship Specialty Start Date End Date Ml Felton APRN [address] [place] [address] PCP - General Internal Medicine 04/30/24
--- OUTSIDE RECORDS SUMMARY | 2024-07-09 01:28 | XMS_ITS | Encounter Summary ---
Author Organization [facility] [place] [address] Care Team Providers Care Transportation Escort Name Role Phone Ml Felton MIMI Primary Care Provider [phone] Encounter Details Date Type Department Care Team (Latest Contact Info) Description 06/08/2024 Travel Social History Tobacco Use Types Packs/Day Years [...] 11:00 AM EST [place] [address] Juanita Moreau APRN [facility] [address] documented as of this encounter Visit Diagnoses Not on filedocumented in this encounter Care Teams Transportation Escort Relationship Specialty Start Date End Date Ml Felton, COAT B[employer]ER [address] [place] [address] PCP - General Internal Medicine 04/30/24 documented as of this encounter
--- OUTSIDE RECORDS SUMMARY | 2024-07-09 01:28 | XMS_ITS | Encounter Summary ---
Author Organization [facility] [place] [address] Care Team Providers Care Magnetic Healer Name Role Phone Purnima Ml Yoon APRN Primary Care Provider [phone] Encounter Details Date Type Department Care Team (Latest Contact Info) Description 06/08/2024 8:00 AM EDT [place] [address] Juanita Moreau [facility] [place] [address] Cerebrovascular accident (CVA), unspecified mechanism; Former smoker; Hyperlipidemia, unspecified hyperlipidemia type; Hypertension, unspecified type Social History Tobacco Use Types Packs/Day Years Used Date Smoking Tobacco: Former Cigarettes 0.5 47.6 1 - 04/25/2024 Smokeless Tobacco: Former Chew Quit: 03/31/2004 Alcohol Use Standard Drinks/Week Comments Not Currently 12 (1 standard drink = 0.6 oz pu re alcohol) [facility] Inpatient Questions Answer Date Recorded Does Anyone [...] on file documented as of this encounter Last Filed Vital Signs Vital Sign Reading Time Taken Comments Blood Pressure 126/79 06/08/2024 7:29 AM EDT Pulse 84 06/08/2024 7:29 AM EDT Temperature - - Respiratory Rate - - Oxygen Saturation - - Inhaled Oxygen Concentration - - Weight 83.9 kg (185 lb) 06/08/2024 7:29 AM EDT p t reported Height 177.8 cm (5' 10) 06/08/2024 7:29 AM EDT pt reported Body Mass Index 26.54 06/08/2024 7:29 AM EDT documented in this encounter Progress Notes * Juanita Moreau T, BAG BUILDER - 06/08/2024 8:00 AM EDT Images from the original note were not included. Cerebrovascular Disease and Stroke Program [place] [address] t: [phone] / f: [phone] IMPACT Improving Post-Acute Care Transitions after Stroke Keegan Delgadillo is a 63 y.o. RIGHT-handed male with PMHx of recent HTN (though per pt report alsohas had issues with low blood pressure), ?lumbar spine injury who presented with imbalance and was found to have bilateral cerebellar acute infarcts . Per Chart Review: Keegan Delgadillo is a 63 y.o. male who was admitted to the neurology service for further evaluation of Stroke. # Stroke Neurological examination on admission was pertinent for imbalance. Patient was monitored with frequent checks of vitals and neurological status. Telemetry monitoring showed NSR. Permissive HTN was allowed, with labetalol administered prn for SBP >220. MRI demonstrated bilateral cerebellar acute infarcts. 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 TTE deferredgiven mechanism very likely atheroembolism from VA. ASA and statin were started for secondary stroke prevention. PPI also started given report of bloody emesis at admission given aspirin. See detailed reports as below. #HTN Diastolic BP was largely above 90-100s so amlodipine 5mg started at DC. Patient was evaluated by rehabilitation services and deemed appropriate for home with outpatient PT. Operations & Procedures: none Consultations: 1. PT/OT/SL Interval History Repeat events or new symptoms: None Hospital readmissions/ED visits since discharge: None Residual deficits: reports brain fog Ongoing rehab: PT for one visit and then said he was good and cancelled future appointments Keegan Delgadillo comes to the appointment today with his girlfriend, Sherley. He reports he is feeling closer to his baseline, though continues to experience brain fog. He notes it has gotten better since discharging though. 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 He works in a place that makes [employer] and has not been back to this yet. He does not check hisblood pressure at home. He has not had any alcohol since his stroke. He has also has not smoked cigarettes since discharging from the hospital either. He has been trying to avoid carbohydrates. He has been having a lot of fruits and vegetables and farm fresh chicken. Patient reports good compliancewith his medications. Keegan Delgadillo denies any recent falls or abnormal or prolonged bleeding. He has a good relationship with his PCP and has follow up with her later today. Keegan Delgadillo has not had any admissions or emergency room visits since being discharged. No repeat neurological events or symptoms suggestive of cerebral hemorrhage, ischemia or seizures. No data to display No data to display No data to display No data to display No data to display No data to display No data to display Patient Active Problem List Diagnosis Code Stroke I63.9 Allergies Allergen Reactions Bupropion Hcl CIS - Hives Outpatient Medications Marked as Taking for the 06/08/24 encounter (Office Visit) with Evangelina Moreau APRN Medication Sig Dispense Refill losartan (Cozaar) 50 mg tablet Take 1 tablet by mouth Daily at Noon. aspirin 81 mg chewable tablet Take 81 mg by mouth daily. 30 tablet 3 atorvastatin (Lipitor) 40 mg tablet Take 1 tablet by mouth every evening. 90 tablet 3 pantoprazole EC (Protonix) [address] tablet Take 1 tablet by mouth daily. 90 tablet 3 amLODIPine (Norvasc) 5 mg tablet Take 1 tablet by mouth daily. 90 tablet 3 Exam Patient Vitals for the past 24 hrs: Pulse BP 06/08/24 0729 84 126/79 General: alert, NAD Neuro exam: MSE: alert, oriented to person, place, time, situation, follows simple and complex commands, speechfluent with no dysarthria, able to repeat a sentence, names objects. CN: PERRL, L ptosis (chronic per patient and girlfriend), no nystagmus, EOMI, facial sensation intact, no facial droop or asymmetry, tongue protrudes midline Motor: 5/5 RUE 5/5 LUE 5/5 RLE 5/5 LLE Normal bulk and tone Sensation: intact light touch Coordination: intact finger nose finger, no dysmetria, no tremor, satellite with arm/finger rollingRUE Gait: normal stride and armswing, able to perform heel to garcia Modified Itzel Scale (MRS) 0: No symptoms at all 1: No significant disability despite symptoms; able to carry out all usual duties and activities 2: Slight disability; unable to carry out all previous activities, but able to look after own affairs without assistance 3: Moderate disability; requiring some help, but able to walk without assistance 4: Moderate disability; unable to walk without assistance and unable to attend to own bodily needs without assistance 5: Severe disability; bedridden, incontinent and requiring constant nursing care and attention 6: Data Lipids Lipid Panel Lab Results Component Value Date CHLPL 201 04/30/2024 HDL 39 04/30/2024 TRIG 136 04/30/2024 LDLCHOL 135 04/30/2024 Last 3 Hemoglobin A1Cs Lab Results Component Value Date HA1C 5.8 (H) 04/30/2024 Clinical Impression and recommendations Keegan Delgadillo is a 63 y.o.male with recent HTN (though per pt report also has had issues with low blood pressure), ?lumbar spine injury who is evaluated today as post-discharge hospital check forrecent imbalance. Stroke work up revealed bilateral cerebellar acute infarcts . 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 Neurological exam today reveals subtle RUE slowing. He continues on Aspirin and high intensity. Recommend goal blood pressure normotension. Continue to exercise as able to tolerate. Patient went to PT outpatient for assessment and felt he was back to baseline and did not require any further therapyor interventions. Continue to abstain from smoking and congratulated on complete cessation. Neurologically stable without repeat events or new symptoms. Denies need for further interventions at this time to support his stroke recovery. Continue to partner with PCP to maximize management of modifiable risk factors for stroke risk reduction. #Neuro - -Continue Aspirin 81mg daily -Continue Atorvastatin 40mg daily -Goal blood pressure normotension -Return to clinic 3 months Education provided today covered: patient-specific vascular risk factors, cause of the TIA/stroke, prognosis and risk of recurrence, medications for TIA/stroke prevention, potential side effects of these medications, management of modifiable risk factors including heart healthy diet, increased physical activity, maintaining smoke free status, moderation in alcohol, weight management, blood pressure, glucose and cholesterol control, warning signs of stroke, plan to contact EMS in event of recurrent symptoms. Compliance with treatment and regular follow-up with PCP was emphasized. This visit was a total of 60 minutes which was spent on pre-charting, reviewing results of diagnostic studies, as well as patient education and counseling as detailed above. Juanita Moreau APRN #[id number] Department [place] [address] documented in this encounter Plan of Treatment Upcoming Encounters Date Type Department Care Team (Late st Contact Info) Description 12/13/2024 11:00 AM EST [place] [address] Juanita Moreau APRN [facility] [place] [address] documented as of this encounter Visit Diagnoses Diagnosis Cerebrovascular accident (CVA), unspecified mechanism Former smoker Personal history of tobacco use, presenting hazards to health Hyperlipidemia, unspecified hyperlipidemia type Hypertension, unspecified type documented in this encounter Care Teams Magnetic Healer Relationship Specialty Start Date End Date Ml Felton APRN [address] [place] [address] PCP - General Internal Medicine 04/30/24 documented as of this encounter
--- OUTSIDE RECORDS SUMMARY | 2024-07-09 01:29 | XMS_ITS | Encounter Summary ---
Author Organization [facility] [address] Care Team Providers Care Beef Splitter Name Role Phone Ml Felton MIMI Primary Care Provider [phone] Encounter Details Date Type Department Care Team (Latest Contact Info) Description 04/30/2024 Travel Social History Tobacco Use Types Packs/Day [...] 11:00 AM EST [place] [address] Juanita Moreau APRN [facility] [address] documented as of this encounter Visit Diagnoses Not on filedocumented in this encounter Care Teams Beef Splitter Relationship Specialty Start Date End Date Ml Felton, THIRD GRADE TEACHER [address] [place] [address] PCP - General Internal Medicine 04/30/24 documented as of this encounter
--- OUTSIDE RECORDS SUMMARY | 2024-07-09 01:29 | XMS_ITS | Encounter Summary ---
Author Organization [facility] Address [address] [place] [address] Care Team Providers Care Operator Control Room Name Role Phone Unknown, Provider Primary Care Provider [phone] Encounter Details Date Type Department Care Team (Latest Contact Info) Description 05/10/2015 10:31 EDT - 05/10/2015 23:59 EDT Hospital Encounter [address] [address] Unknown, Provider, Discharge Disposition: Home or Self Care Social History Tobacco Use Types Packs/Day Years Used Date Smoking Tobacco: Never Assessed Sex and Gender Information Value Date Recorded Sex Assigned at Not on file Gender Identity Not on file Sexual Orientation Not on file documented as of this encounter Discharge Disposition Disposition Code Departure Means Destination Home or Self Penitentiary documented in this encounter Plan of Treatment Not on file documented as of this encounter Visit Diagnoses Not on filedocumented in this encounter Care Teams Operator Control Room Relationship Specialty Start Date End Date Unknown, Provider, PCP - General 05/10/15 05/10/15 documented as of this encounter
--- OUTSIDE RECORDS SUMMARY | 2024-07-09 01:29 | XMS_ITS | Encounter Summary ---
Author Organization [facility] [place] [address] Care Team Providers Care Roving Sizer Name Role Phone Unavailable Primary Care Provider Unavailabl e Encounter Details Date Type Department Care Team (Late st Contact Info) Description 04/26/2004 Ancillary Procedure [place] [address] Carmelo Fish MD [facility] [place] [address] Social History Tobacco Use Types Packs/Day Years [...] 11:00 AM EST [place] [address] Juanita Moreau APRN [facility] [place] [address] documented as of this encounter Procedures Procedure Name Priority Date/Time Associated Diagnosis Comments FILM LIBRARY STORAGE ONLY CT CHEST ABDOMEN PELVIS Routine 04/26/2004 12:00 AM EDT documented in this encounter Results * Film Library- Storage Only CT Chest Abdomen Pelvis (04/26/2004 12:00 AM EDT) Narrative [place] [address]/27/2024 3:31 PM EDT This exam is auto-finalizing. It's purpose is for storage only. Camrelo Fish MD [facility] [place] FILM LIBRARY ORD ERABLES Performing Organization Address City/State/[facility] Co de Phone Number GARR[place], [place] documented in this encounter Visit Diagnoses Not on filedocumented in this encounter
--- OUTSIDE RECORDS SUMMARY | 2024-07-09 01:29 | XMS_ITS | Encounter Summary ---
Author Organization [facility] [place] [address] Care Team Providers Care Shochet Name Role Phone Froylan VALLADARES MD, Nico Abrams Primary Care Provider Encounter Details Date Type Department Care Team (Late st Contact Info) Description 04/26/2024 3:40 PM EDT Ancillary Procedure [place] [address] Carmelo Fish MD [facility] [place] [address] Social History Tobacco Use Types Packs/Day Years [...] 11:00 AM EST Office [place] [address] Juanita Moreau APRN [facility] [place] [address] documented as of this encounter Procedures Procedure Name Priority Date/Time Associated Diagnosis Comments FILM LIBRARY STORAGE ONLY CT CHEST ABDOMEN PELVIS Routine 04/26/2024 3:35 PM EDT documented in this encounter Results * Film Library- Storage Only CT Chest Abdomen Pelvis (04/26/2024 3:35 PM EDT) Narrative [facility] - 04/26/2024 3:35 PM EDT This exam is auto-finalizing. It's purpose is for storage only. Carmelo Fish MD IM FILM LIBRARY ORD ERABLES [place], [place] documented in this encounter Visit Diagnoses Not on filedocumented in this encounter Care Teams Shochet Relationship Specialty Start Date End Date Nico Galeano III, MD [address] [place] [address] PCP - General 10/23/10 04/29/24 documented as of this encounter
--- OUTSIDE RECORDS SUMMARY | 2024-07-09 01:29 | XMS_ITS | Encounter Summary ---
Author Organization [facility] Address [address] [place] [address] Care Team Providers Care Ship Harbor Pilot Name Role Phone Unknown, Provider Primary Care Provider Encounter Details Date Type Department Care Team (Late st Contact Info) Description 05/10/2015 Results Only [facility] [phone] Domingo Coppola MD [address] [place] [address] [place] [address] Social History Tobacco Use Types Packs/Day Years Used Date Smoking Tobacco: Never Assessed Sex and Gender Information Value Date Recorded Sex Assigned at Not on file Gender Identity Not on file Sexual Orientation Not on file documented as of this encounter Plan of Treatment Not on file documented as of this encounter Procedures Procedure Name Priority Date/Time Associated Diagnosis Comments SURGICAL PATHOLOGY Routine 05/10/2015 20 :48 EDT documented in this encounter Results * SURGICAL PATHOLOGY (05/10/2015 20:48 EDT) Pathology Report: SURGICAL PATHOLOGY REPORT Reports generated via electronic interface contain original data; however they are lacking the format of the original report. Caution should be taken when reading/interpret ing unformatted reports. Name: ? KEEGAN DELGADILLO ? Accession #: ? [id number] ? : ? 1960 (Age: 54) ??M ? Collect Date: ? 05/10/2015 ? Location: ? [facility] ? Receive Date: ? 05/10/2015 ? Provider: DOMINGO COPPOLA MD Copy to: LAKHWINDER ZHU MD ? Final Pathologic Diagnosis: SOFT TISSUE OF FOREHEAD, RIGHT, EXCISION: - ?? Mature adipose tissue consistent with lipoma. Document reviewed and electronically signed by: Sang Rossi MD Report ??Date: 05/15/2015 16:10 By the signature above, the attending physician certifies that he/she has personally conducted a gross and/or microscopic examination of the described specimens and rendered or confirmed the above diagnosis. Specimen(s) Received: Lipoma Rt. forehead Clinical History: Lipoma Rt. forehead Gross Description: ? Received in formalin labelled with proper patient identification (initials H, E) and lipoma right forehead is an unoriented portion of ovoid yellow adipose tissue (3.0 x 2.5 x 1.2 cm). The outer surface has a smooth, thin, translucent intact capsule. The outer surface is inked blue. The cut surface is yellow homogenous and glistening, without hemorrhage. Supervisor Shop sections are submitted as 1. Latonya Funez 05/11/2015 09:20 AM End of Report [facility] 05/10/2015 20:4 8 EDT 05/10/2015 20:48 EDT Domingo Coppola MD PATHOLOGY ORDERCar JAMA [facility] [address] [place] [address] documented in this encounter Visit Diagnoses Not on filedocumented in this encounter Care Teams Ship Harbor Pilot Relationship Specialty Start Date End Date Unknown, Provider, PCP - General 05/10/15 05/10/15 documented as of this encounter
--- OUTSIDE RECORDS SUMMARY | 2024-07-09 01:29 | XMS_ITS | Encounter Summary ---
Author Organization [facility] [place] [address] Care Team Providers Care Hris Coordinator Name Role Phone Ml Felton MIMI Primary Care Provider + [phone] Reason for Referral * Physical Therapy (Routine) - Authorized Specialty Diagnoses / Procedures Referred By Contac t Referred To Contact Physical Therapy Diagnoses Stroke Tristan Cary, [facility] [address] Referral ID Status Reason Start Date Expiration Date Visits Requested Visits Authorized [id number] Authorized Evaluate and Treat 05/01/2024 10/28/2024 12 12 Reason for Visit * Reason Comments Dizziness Dehydration * Auth/Cert (Routine) Specialty Diagnoses / Procedures Referred By Contac t Referred To Contact Diagnoses Stroke Procedures EMERGENCY IPI Avery Witt MD [facility] [place] [address] [facility] Referral ID Status Reason Start Date Expiration Date Visits Re quested Visits Authorized [id number] 1 1 Encounter Details Date Type Department Care Team (Latest Contact Info) Description 04/30/2024 12:05 PM EDT - 05/01/2024 4:56 PM EDT Hospital Encounter Neurosciences and ENT Unit Level [address] [place] [id number] Nahomy Ferrari MD [facility] [place] [address] Anjel Esparza MD [facility] [place] [address] Avery Witt MD [facility] [place] [address] Stroke (Primary Dx) Discharge Disposition: Home Social History Tobacco Use Types Packs/Day Years Used Date Smoking Tobacco: Former Cigarettes 0.5 47.6 1 - 04/25/2024 Smokeless Tobacco: Former Chew Quit: 03/31/2004 Tobacco Cessation:Counseling Given: No Alcohol Use Standard Drinks/Week Comments Not Currently 12 (1 standard drink = 0.6 oz pu re alcohol) DH IPV Inpatient Questions Answer Date Recorded Does [...] Sign Reading Time Taken Comments Blood Pressure 132/80 05/01/2024 4:00 AM EDT Pulse 63 05/01/2024 4:00 AM EDT Temperature 36.7 ??C (98.1 ??F) 05/01/2024 10:20 AM E DT Respiratory Rate 18 05/01/2024 4:00 AM EDT Oxygen Saturation 95% 05/01/2024 4:00 AM EDT Inhaled Oxygen Concentration - - Weight 83.9 kg (185 lb) 05/01/2024 5:36 AM EDT Height 175.3 cm (5' 9) 04/30/2024 8:22 PM EDT Body Mass Index 27.32 04/30/2024 8:22 PM EDT documented in this encounter Discharge Summaries * Avery Witt MD - 05/01/2024 2:45 PM EDT Images from the original note were not included. Discharge Summary Patient Name: Keegan Delgadillo Patient Age: 63 y.o. Language: Guatemalan Admit date: 04/30/2024 Discharge date and time: 243:49 PM Attending Physician: Avery Witt MD Discharge Physician: Avery Witt MD Follow-up Recommendations for Providers: Amlodipine 5mg daily started for elevated diastolic BP, titrate as needed Daily aspirin and atorvastatin started for secondary stroke prevention Pantoprazole started given report of vomiting blood at admission Inpatient Provider Contact Information: For questions regarding this document or issues related to this hospitalization on the Neurology Service, please contact . 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 Active Non Hospital Problems: There are no active non-hospital problems to display for this patient. History of Presentation: Keegan Delgadillo is a 63 y.o. male R handed male with a PMH of recent HTN (though per pt report also has had issues with low blood pressure), ?lumbar spine injury, who presented to the ED with complaints of dizziness for the last several days. 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 Pt presents here with his mother and his sister. Pt states that he went to [facility] on Friday with fevers, vomiting, nausea, and high blood pressure (GFstates top number was 196 at one point). 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 Pt reports that he initially started having some symptoms the day before (Wednesday 04/25) around 11 AM when he started having a JOY and took some ibuprofen. Friday morning GF states that he seemed very anxious and by 8-830 AM he was throwing up and GF states that he appeared to be throwingup blood. GF states he was also feverish though the only temp they got on thermometer was about 99.6 F, states thermometer after that and they didn't take any additional temperatures. Pt's sister states that about 10 years ago he would have dizzy spells and have periods of blacking out though hasn't had any similar symptoms for the last 10 years. Pt and family state that he has continued to have nausea since onset on Friday, which has essentially been unchanged. He was prescribed some nausea medicine on Friday, last episode of vomiting was before he took the nausea medicine. Denies noticing any bloody vomitus since Friday, though feels he can taste some blood in his mouth since then. Pt denies that he has had any further JOY since episode on Friday. Pt states his vision has been getting worse over the years, though no acute vision changes since onset of current symptoms. Pt stateshe has been having some R shoulder pain since onset of symptoms, and some intermittent tingling in the R hand. Also reports that the week before onset of symptoms he was having numbness in the L leg which he attributes to having some back problems. GF [facility] and states he was told he had a broken back, though these images are not available for review. Pt denies having any numbness/tingling in the L leg currently. Denies difficulty swallowing, speech changes, new weakness. Pt does endorse that he feels his equilibrium is off and he is having some difficulty with his balance. He denies veering, though his GF states that she has noticed that he seems to be veering to the R. Denies starting any new recent medications recently (aside from the nausea medicine and stomach medicine which they believe are omeprazole and zofran). He denies taking any other medications. There is a family history of diabetes, stroke/TIA and heart attacks on dad's side of the family. Admission NIH Stroke Scale: NIH Stroke Scale Date 04/30/24 NIH Stroke Scale Time 1500 Level of Consciousness 0 LOC Questions 0 LOC Commands 0 Best Gaze 0 Vision 0 Facial Palsy 1 (slight droopy appearance of L eye (baseline)) Motor Arm, Left 0 Motor Arm, Right 0 Motor Leg, Left 0 Motor Leg, Right 0 Limb Ataxia 0 Sensory 0 Best Language 0 Dysarthria 0 Extinction and Inattention: 0 NIH Total Score 1 Hospital Course: Keegan Delgadillo is a 63 y.o. male [...] Operations & Procedures: none Consultations: 1. PT/OT/SL Diagnostic Tests & Neuroimaging: Study Results ECG Normal sinus rhythm Left axis deviation Abnormal ECG No previous ECGs available CXR No results found. CT Head CT Head wo Contrast (Generic) Result Date: 04/30/2024 Findings of bilateral PICA distribution infarcts, with suspected acute/subacute component. No intracranial hemorrhage or mass effect. Thank you for letting us participate in the care of this patient.If you are a health care provider and have any questions regarding this report, please contact the number below. For patients who have questions please contact the health personal care service provider that requested your imaging first. Head and Neck No results found. MRI BRAIN MRI Brain wo Contrast Result Date: 04/30/2024 1. Bilateral inferior cerebellar infarcts. 2. No posterior fossa mass effect. 3. Absent flow-void within the high cervical right vertebral artery concordant with recent CTA findings, concerning for vertebral artery dissection or occlusion. Thank you for letting us participate in the care of this patient. If you are a health care provider and have any questions regarding this report, please contact the number below. For patients who have questions please contact the health personal care service provider thatrequested your imaging first. 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 If you are a health care provider and have any questions regarding this report, please contact the number below. For patients who have questions please contact the health personal care service provider that requestedyour imaging first. Carotid Duplex Labs: Lipid Panel Lab Results Component Value Date CHLPL 201 04/30/2024 HDL 39 04/30/2024 TRIG 136 04/30/2024 LDLCHOL 135 04/30/2024 Lab Results Component Value Date HA1C 5.8 (H) 04/30/2024 Labs: Recent Labs 05/01/24 0551 04/30/24 1201 WBC 11.9* 12.7* NEUTROABS 8.27* 9.08* NRBCABS 0.000 0.000 HGB 15.7 17.5* HCT 46.1 51.2* PLATELET 264 281 MCV 89.0 89.0 Recent Labs 05/01/24 0551 04/30/24 1201 NA 138 141 CL 103 103 CO2 24 27 K 3.5 3.8 MAGNESIUM 0.99 -- PHOS 3.2 -- CALCIUM 9.1 9.6 BUN 13 14 CREATININE 0.71* 0.78* LFTs Recent Labs 05/01/24 0551 04/30/24 1201 PROT 6.5 7.4 ALBUMIN 3.8 4.3 AST 43* 41* ALT 28 25 ALKPHOS 76 88 BILITOT 0.5 0.5 BILIDIR 0.1 0.1 Coags Recent Labs 04/30/24 1201 INR 1.1 PT 12.4 PTT 31 Cardiac Enzymes No results for input(s): CK, TROPONINT, PROBNP in the last 168 hours. Endocrine Recent Labs 04/30/24 1201 TSH 2.81 No results for input(s): POCGLU in the last 168 hours. Heme No results for input(s): LDH, HAPTOGLOBIN, URICACID in the last 168 hours. ABG (Arterial Blood Gas) No results found for: PHART, PO2ART, NBE2HEQ, MTO1YTL Pending Studies and Lab Data: The patient will need the following 3 tests completed on: 04/30/2024 1. Lavender Tube HOLD 3. Green Tube HOLD 2. Echocardiogram Transthoracic Diagnosis: Stroke (I63.9) Authorizing Provider: Avery Witt MD PT Eval: Turning from your back to your side while in a flat bed w/o using handrails?: 4 - None Standing up from a chair using your arms (e.g. wheelchair, or bedside commode)?: 4 - None Moving from lying on your back to sitting on the side of a flat bed w/o using bedrails?: 4 - None Moving to and from a bed to a chair (including a wheelchair): 4 - None To walk in hospital room?: 4 - None Climbing 3-5 steps with a railing?*: 3 - A Little Anticipated Discharge Disposition (PT): home with supervision, home with outpatient therapy services (needs an outpt dermatology appt for forehead lesion) OT Eval: How much help from another person does the patient currently need putting on and taking off regularlower body clothing?: 4 - None How much help from another person does the patient currently need with bathing (including washing, rinsing, drying)?: 3 - A Little How much help from another person does the patient currently need with toileting, which includes using toilet, bedpan or urinal?: 4 - None How much help from another person does the patient currently need putting on and taking off regularupper body clothing?: 3 - A Little How much help from another person does the patient currently need taking care of personal grooming such as brushing teeth?: 4 - None How much help from another person does the patient currently need eathing meals?: 4 - None Anticipated Discharge Disposition (OT): home [employer]: Vital Signs at Discharge: BP: 132/80, Heart Rate: 63, Temp: 36.7 ??C (98.1 ??F), Resp: 18, BMI (Calculated): 27.32 Height: 175.3 cm (5' 9) (04/30/242021) Weight: 83.9 kg (185 lb) (05/01/24535) Physical Exam at Discharge: Gen: Patient of apparent stated age, well nourished, well developed, awake, alert, NAD Head/Neck: Supple, no meningismus; poor dentition CV: NSR with L axis deviation on EKG Resp: respirations appear unlabored on RA Abd: soft, nontender, nondistended Ext: No edema. No bony deformity Neuro Exam: MS: Awake, alert, oriented to self, age location, clear language, no dysarthria, follows commands appropriately CN: PERRL, EOMI, visual santiago full Facial sensation intact, there is a slightly droopy appearance of the L eyelid (though pt/family reported this is baseline) Hearing intact to finger rub Palate elevates symmetrically, tongue protrudes midline SCM and trap strength intact Motor: Normal bulk and tone. Sustains AG in all 4 extremities without drift towards bed; full power handgrip Sensation: Intact to light touch throughout without evidence of sensory extinction Coordination: Subtle incoordination of RUE and RLE on testing Gait: Deferred Discharge NIH Stroke Scale NIH Stroke Scale Date 05/01/24 NIH Stroke Scale Time 0900 Level of Consciousness 0 LOC Questions 0 LOC Commands 0 Best Gaze 0 Vision 0 Facial Palsy 0 Motor Arm, Left 0 Motor Arm, Right 0 Motor Leg, Left 0 Motor Leg, Right 0 Limb Ataxia 0 Sensory 0 Best Language 0 Dysarthria 0 Extinction and Inattention: 0 NIH Total Score 0 Discharge to: Home Updated Allergies/ADRs: Allergies Allergen Reactions Bupropion Hcl CIS - Hives Immunizations Given this Hospitalization: There is no immunization history on file for this patient. Discharge Medications: Your Medications New Medications Dose Details amLODIPine 5 mg tablet Commonly known as: Norvasc Take 1 tablet by mouth daily. 5 mg Quantity: 90 tablet Refills: 3 aspirin 81 mg chewable tablet Take 81 mg by mouth daily. Start taking on: May 02, 2024 81 mg Quantity: 30 tablet Refills: 3 atorvastatin 40 mg tablet Commonly known as: Lipitor Take 1 tablet by mouth every evening. 40 mg Quantity: 90 tablet Refills: 3 ondansetron ODT 4 mg disintegrating tablet Commonly known as: Zofran-ODT Take 1 tablet by mouth every 6 hours as needed for Nausea. 4 mg Quantity: 20 tablet Refills: 0 pantoprazole EC [address] tablet Commonly known as: Protonix Take 1 tablet by mouth daily. Start taking on: May 02, 2024 40 mg Quantity: 90 tablet Refills: 3 SECONDARY STROKE PREVENTION: Preventative measure Antithrombotic Therapy Administered within 2 days of admission?: Yes Anticoagulation Therapy Prescribed at Discharge?: No Reason not given (anticoagulant):: Therapy not indicated Was statin medication prescribed at discharge?: Yes Was Guideline Recommended Statin Dose Prescribed at Discharge?: Yes Has patient had a cigarette within the last 365 days?: Yes Smoking cessation therapies prescribed:: Patient/family refused Education: Patient/caregiver received written stroke discharge instructions/information?Yes The patient/caregiver accepted education on stroke warning signs and symptoms, personal modifiable stroke risk factors, activation of emergency medical systems for stroke, medications prescribed at discharge for stroke, and education on stroke follow-up. Modified [place] Score (MRS) on discharge Score Description 0 No symptoms at all 1 No significant disability despite symptoms; able to carry out all usual duties and activities 2 Slight disability; unable to carry out all previous activities, but able to look after own affairs without assistance 3 Moderate disability; requiring some help, but able to walk without assistance 4 Moderately severe disability; unable to walk without assistance 5 Severe disability; bedridden, incontinent and requiring constant nursing care and attention 6 Total Score: 1 Instructions Given to Patient at Discharge: Patient Instructions Patient Instructions: You were admitted to the neurology service at [facility] Your Diagnosis: cerebellar strokes - You were found to have strokes likely caused by a blockage in your right vertebral artery. Pleasestart taking aspirin 81mg daily and atorvastatin 40mg daily - your diastolic blood pressure was high and amlodipine was started at a low dose, 5mg daily. Your PCP can help titrate this medication. - Pantoprazole was started to reduce risk of stomach bleeding while on aspirin given initial concern for vomiting blood, your PCP can manage this. - outpatient physical therapy ordered, you may take this to a local PT. - Work close with your primary care provider (PCP) with monitoring your blood pressure, blood sugarand cholesterol. - Lifestyle modifications should include: taking all medications as prescribed, smoking cessation or staying away from others who are smoking to avoid second hand smoke, limiting alcohol intake, maintaining a normal/healthy weight, adhering to a healthy diet (low-fat, low-sodium, high intake of fresh fruits and vegetables, limiting red meat), and engaging in regular physical activity. - please stop smoking, we discussed medications and nicotine replacement options which you declined Call 911 or your local EMS if you have sudden weakness or numbness in your face or one of your limbs, slurred speech, loss of vision, or difficulty speaking. It is important to seek medical attentionas soon as possible, as these symptoms could be related to a new stroke. Diet: we recommend a heart healthy diet: low fat, low cholesterol, low concentrated sweets. Activity Restrictions: As tolerated, avoid turning head in extremes for about 2 weeks Know Your Numbers! Blood Pressure BP Readings from Last 3 Encounters: 05/01/24 132/80 HA1C Lab Results Component Value Date HA1C 5.8 (H) 04/30/2024 Cholesterol Lab Results Component Value Date CHLPL 201 04/30/2024 HDL 39 04/30/2024 TRIG 136 04/30/2024 LDLCHOL 135 04/30/2024 Below is an explanation of each of the cholesterol test results. Total cholesterol: This test is best when below 200. It can be improved primarily by a low fat diet. HDL (good cholesterol): The higher the better. It is best when above 50. It is primarily genetically determined but can be increased with exercise. LDL (bad cholesterol): this test is best when below 130 (or below 100 if you have heart disease or below 70 if you have had a stroke or TIA). It can be lowered by a low fat diet. Triglycerides: This test is best when below 180. It can be lowered by a low fat diet, avoidance of sweets and weight loss. Follow-up: Neurology: You will have a follow-up appointment in the neurology clinic at [facility]. See below for the appointment time. If you do not have an appointment, you will be called with a time/date for this appointment. NOTE: In an effort to reduce possible exposure to COVID-19, some clinic appointments are being conducted via telehealth with video. We will do our best to accommodate the best visit type, either in-person or via telehealth depending on each unique patient situation. Of note, if you consent to a telehealth encounter in lieu of face to face visit, you understand the visit may be billed similar to a regular [id number] clinic visit. Primary Care Provider: Please follow up with your Primary Care Provider within one to 2 weeks of discharge. For questions regarding this document or issues relating to this hospitalization on the Neurology Service, please contact the author(s) of this discharge summary through the [facility] Planning Technician . If you need to cancel or reschedule, please call Dept: [phone] as soon as possible. This is helpful to us and other waiting patients. IF FOLLOW UP VISIT WITH STROKE TEAM IS NEEDED IN FORM OF TELEHEALTH: Please ensure you have an active Stor[employer] account and are familiar with it. Also, please ensure an active email address. To sign up for a St[employer] account, Visit the [email or web address] website and 1) choose ???create an account?? 2) enter your date of 3) You will be asked if you have an activation code. If you have an activation code, click the ???yes?? button. If you do not have a code, click the ???no?? button. 4) If you do not have an activation code, you will now be asked to enter your information. 5) You will receive an email once your account has been created. If you need technical assistance call [phone] Friday through Friday, 7:30 am to 5:00 pm If you plan to join your [facility] Video Visit using your personal smartphone or tablet, prior to joining your visit you will need to download the Zoom cookie from the Cookie Store (for iPhone/iPad) or SPO (for Android). Ifyou already have Zoom downloaded on your device for personal use, you???re good to go! 1. Open the Cookie Store or SPO Store on your device. 2. Search for Zoom and download the [employer] [place] Meetings cookie. ? Cookie Store Link: https://[employer] Cigarette.Wifi.com/us/cookie/frcd-tiffb-spyprbaz/ri704052124 ? SPO Link: https://[employer]/store/apps/details?id=us.zoom.videomeetings If you plan to join your [facility] Video Visit using your computer or laptop, prior to joining your video visit you will need to download Zoom. If you already have Zoom downloaded on your machine for personal use, you???re good to go! 1. Open your web browser (Internet Explorer, Chrome, etc.). 2. Type zoom.us and press enter on your keyboard (or click this link: https://zoom.us/). 3. In the top right corner of the webpage, hover over Resources and click Download Zoom Client. 4. Within the Zoom Download Center, find Zoom Client for Meetings and click the associated Downloadbutton. 5. Follow the downloading prompts. 6. Once complete, your computer will have the software necessary to connect to your visit. Note: Subsequent video visits will not require a re-download of Zoom. For phone/tablet: Starting 30 minutes before your appointment, you will find the link to connect to your visit withinyour Storrz portal. 1. Sign into your St[employer] account. 2. Select Appointments. 3. Select your [facility] Video Visit and tap Begin Visit. 4. The Zoom cookie will launch. The ???Waiting for host to start this meeting?? screen will appear and stay until your provider enters the video visit. 5. Once the provider joins the visit you will see your video preview appear. Select Join with Video. 6. You will then be presented with an audio screen. Select Call using Internet Audio. For computer: Starting 30 minutes prior to your scheduled [facility] Video Visit, you will find the link to connect tothe visit within your Storrz portal. 1. Sign into your Storrz account (Storrz portal link: [email or web address]). 2. On the top of the webpage, hover over Visits and select Appointments and Visits. 3. Click the Details button next to your [facility] video visit. 4. Click the Begin Video Visit button. 5. Your computer will open your default web browser. Click Open Zoom Meetings on the pop-up window that appears. 6. The below window will appear and stay until your provider enters the video visit. 7. Once the provider has entered the video visit, you will be prompted with a video preview. Click Join with Video. 8. Connect the audio portion of the visit by clicking the Phone Call button. 9. Dial one of the phone numbers listed and follow the prompts to enter your Meeting ID and Participant ID. Note: the option exists to use your computer for audio, if you choose this option please ensure youare able to confirm your microphone settings are on. General Instructions None Future Appointments and Orders Future Orders Complete By Expires Referral to Physical Therapy [[id number] Custom] As directed Process Instructions: Note: Please indicate in the comments any additional Instructions, precautions or contradictions. Scheduling Instructions: Questions: Is this an internal or external order?: External Reason for PT: incoordination after stroke Modalities could include: Treatment Focus: Primary Care Provider: Ml Felton, [employer] [employer] [id number] [facility] / [facility] [id number] Discharge References/Attachments None documented in this encounter Discharge Instructions * Patient Instructions* Tristan Cary DO - 05/01/2024 11:48 AM EDT Images from the original note were not included. Patient Instructions: You were admitted to the neurology service at [facility] Your Diagnosis: cerebellar strokes - You were found to have strokes likely caused by a blockage in your right vertebral artery. Pleasestart taking aspirin 81mg daily and atorvastatin 40mg daily - your diastolic blood pressure was high and amlodipine was started at a low dose, 5mg daily. Your PCP can help titrate this medication. - Pantoprazole was started to reduce risk of stomach bleeding while on aspirin given initial concern for vomiting blood, your PCP can manage this. - outpatient physical therapy ordered, you may take this to a local PT. - Work close with your primary care provider (PCP) with monitoring your blood pressure, blood sugarand cholesterol. - Lifestyle modifications should include: taking all medications as prescribed, smoking cessation or staying away from others who are smoking to avoid second hand smoke, limiting alcohol intake, maintaining a normal/healthy weight, adhering to a healthy diet (low-fat, low-sodium, high intake of fresh fruits and vegetables, limiting red meat), and engaging in regular physical activity. - please stop smoking, we discussed medications and nicotine replacement options which you declined Call 911 or your local EMS if you have sudden weakness or numbness in your face or one of your limbs, slurred speech, loss of vision, or difficulty speaking. It is important to seek medical attentionas soon as possible, as these symptoms could be related to a new stroke. Diet: we recommend a heart healthy diet: low fat, low cholesterol, low concentrated sweets. Activity Restrictions: As tolerated, avoid turning head in extremes for about 2 weeks Know Your Numbers! Blood Pressure BP Readings from Last 3 Encounters: 05/01/24 132/80 HA1C Lab Results Component Value Date HA1C 5.8 (H) 04/30/2024 Cholesterol Lab Results Component Value Date CHLPL 201 04/30/2024 HDL 39 04/30/2024 TRIG 136 04/30/2024 LDLCHOL 135 04/30/2024 Below is an explanation of each of the cholesterol test results. Total cholesterol: This test is best when below 200. It can be improved primarily by a low fat diet. HDL (good cholesterol): The higher the better. It is best when above 50. It is primarily genetically determined but can be increased with exercise. LDL (bad cholesterol): this test is best when below 130 (or below 100 if you have heart disease or below 70 if you have had a stroke or TIA). It can be lowered by a low fat diet. Triglycerides: This test is best when below 180. It can be lowered by a low fat diet, avoidance of sweets and weight loss. Follow-up: Neurology: You will have a follow-up appointment in the neurology clinic at [facility]. See below for the appointment time. If you do not have an appointment, you will be called with a time/date for this appointment. NOTE: In an effort to reduce possible exposure to COVID-19, some clinic appointments are being conducted via telehealth with video. We will do our best to accommodate the best visit type, either in-person or via telehealth depending on each unique patient situation. Of note, if you consent to a telehealth encounter in lieu of face to face visit, you understand the visit may be billed similar to a regular myro-sm-inha clinic visit. Primary Care Provider: Please follow up with your Primary Care Provider within one to 2 weeks of discharge. For questions regarding this document or issues relating to this hospitalization on the Neurology Service, please contact the author(s) of this discharge summary through the [facility] Planning Technician . If you need to cancel or reschedule, please call Dept: [phone] as soon as possible. This is helpful to us and other waiting patients. IF FOLLOW UP VISIT WITH STROKE TEAM IS NEEDED IN FORM OF TELEHEALTH: Please ensure you have an active Stor[employer] account and are familiar with it. Also, please ensure an active email address. To sign up for a Storrz account, Visit the [email or web address] website and 1) choose ???create an account?? 2) enter your date of 3) You will be asked if you have an activation code. If you have an activation code, click the ???yes?? button. If you do not have a code, click the ???no?? button. 4) If you do not have an activation code, you will now be asked to enter your information. 5) You will receive an email once your account has been created. If you need technical assistance call [phone] Friday through Friday, 7:30 am to 5:00 pm If you plan to join your [employer] Video Visit using your personal smartphone or tablet, prior to joining your visit you will need to download the Zoom cookie from the Cookie Myrl (for [employer]) or SPO (for Treatspace). Ifyou already have Zoom downloaded on your device for personal use, you???re good to go! 1. Open the Cookie Store or SPO Store on your device. 2. Search for Zoom and download the Zoom [place] Meetings cookie. ? Cookie Store Link: https://apps.Wifi.com/us/cookie/uvqs-cavhn-ffkfvola/ne080192387 ? Google Play Link: https://[employer].CreditCards.com/store/apps/details?id=us.zoom.videomeetings If you plan to join your [facility] Video Visit using your computer or laptop, prior to joining your video visit you will need to download Zoom. If you already have Zoom downloaded on your machine for personal use, you???re good to go! 1. Open your web browser (Internet Explorer, Chrome, etc.). 2. Type zoom.us and press enter on your keyboard (or click this link: https://zoom.us/). 3. In the top right corner of the webpage, hover over Resources and click Download Zoom Client. 4. Within the Zoom Download Center, find Zoom Client for Meetings and click the associated Downloadbutton. 5. Follow the downloading prompts. 6. Once complete, your computer will have the software necessary to connect to your visit. Note: Subsequent video visits will not require a re-download of Zoom. For phone/tablet: Starting 30 minutes before your appointment, you will find the link to connect to your visit withinyour [facility] portal. 1. Sign into your Storrz account. 2. Select Appointments. 3. Select your [facility] Video Visit and tap Begin Visit. 4. The Zoom cookie will launch. The ???Waiting for host to start this meeting?? screen will appear and stay until your provider enters the video visit. 5. Once the provider joins the visit you will see your video preview appear. Select Join with Video. 6. You will then be presented with an audio screen. Select Call using Internet Audio. For computer: Starting 30 minutes prior to your scheduled [facility] Video Visit, you will find the link to connect tothe visit within your Storrz portal. 1. Sign into your Storrz account ([facility] portal link: [email or web address]). 2. On the top of the webpage, hover over Visits and select Appointments and Visits. 3. Click the Details button next to your [facility] video visit. 4. Click the Begin Video Visit button. 5. Your computer will open your default web browser. Click Open Zoom Meetings on the pop-up window that appears. 6. The below window will appear and stay until your provider enters the video visit. 7. Once the provider has entered the video visit, you will be prompted with a video preview. Click Join with Video. 8. Connect the audio portion of the visit by clicking the Phone Call button. 9. Dial one of the phone numbers listed and follow the prompts to enter your Meeting ID and Participant ID. Note: the option exists to use your computer for audio, if you choose this option please ensure youare able to confirm your microphone settings are on. documented in this encounter Medications at Time of Discharge Medication Sig Dispensed Refills Start Date End Date aspirin 81 mg chewable tablet Take 81 mg by mouth daily. 30 tablet 3 05/02/2024 atorvastatin (Lipitor) 40 mg tablet Take 1 tablet by mouth every evening. 90 tablet 3 05/01/2024 ondansetron ODT (Zofran-ODT) 4 mg disintegrating tablet Take 1 tablet by mouth every 6 hours as needed for Nausea. 20 tablet 05/01/2024 pantoprazole EC (Protonix) [address] tablet Take 1 tablet by mouth daily. 90 tablet 3 05/02/2024 amLODIPine (Norvasc) 5 mg tablet Take 1 tablet by mouth daily. 90 tablet 3 05/01/2024 documented as of this encounter Progress Notes * Rashad Sanchez LPN - 05/01/2024 4:56 PM EDT Discharge summary and instructions reviewed with patient and family, explained the precautions and risks associated with diagnosis. Helped Keegan with the enrollment for [facility] for his follow up telehealth appointment. * Barbie Mcnamara, PT - 05/01/2024 2:34 PM EDT Physical Therapy Evaluation Patient profile: Keegan Delgadillo is a 63 y.o. male admitted on 04/30/2024 with complaints of dizziness for the lastseveral days. 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 . Patient with the following active problems: HTN Hernia repair AUD Lumbar injury Social History: Lives with significant other with a ramp to enter. 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 No stairs. Bathroom Set-up: Tub/shower Baseline Mobility: Pt normally drives and is very independent. Equipment at home: none Fall history: none Precautions/Special Considerations: Risk to fall; SBP <180; up with assist; Titrate o2 for >92%. Lines: vitals monitor, PIV Diet: regular Mobility and Positioning Recommendations: Pt. to utilize 1-2 canes and supervision for ambulation and transfers with nursing. Please encourage up to chair for meal times as able. Pt encouraged to ambulate frequently with staff, getting into the bathroom for toileting and walking out in the arreaga >/= 3 times daily as able. Subjective: ???I have been in bed all weak, throwing up. I am feeling better now but still weak yvonne little dizzy.?? Objective: Pt seen for evaluation with PT and OT in 1st session and PT returned a 2nd time for gaittraining with 2 canes. Pt initially supine in bed and later sitting up in the chair. Pain: Denies Reports nausea 3-8/10 during rehab session. Vital Signs: HR 69 at rest and up to 80 with mobility BP 142/93 supine at rest and 154/100 seated EOB. After gt, BP 136/100 SPO2 97% on RA Mental Status: alert and orientated x 3. Vision: denies visual changes. Pinpoint pupils that dilate with diminished light. Horizontal nystagmus, 2 beat, at end range lateral eye movement. EOMI. Denies diplopia or blurry vision. Wears reading glasses. Decreased convergence R eye. Skin: Black eraser size scab R frontal region, present for years. Musculoskeletal: ROM: AROM all extremities wfls. Doffed socks independently supine and donned independently sitting.Independent donned shoes in sitting, including tying them. Pants tied in standing, independently. Strength: BUEs 5/5. B hip flex 4+/5. Good resistance to both hip ab/ad. B quads 5/5. B DF 5/5. Negative pronator drift. 2 beat clonus BLEs Sensation: C/o decreased sensation L calf while SCD on, resolved when removed. Lateral L thigh/buttock with decreased sensation but can locate gross touch. Coordination: More impaired on right side with: heel to garcia, finger to nose, pointer to pointer finger --- mostly with mild dysmetria and slowness of movement. Worse with EC. JC: decreased Bilaterally Bed Mobility: Supine to Sit: modified independent L side of bed Sit to Supine: NE Transfers: Supervision sit<>stand, several times in the AM. Modified independent sit<>stand with canes, later in the AM. Gait: Early AM: no device 150', cga, wide HERIBERTO, slow pace, variable step lengths, minimal arm swing or head movement. Couple of episodes of dizziness and near LOB, self corrected with standing still. ~50' with cane in R hand (preferred), supervision. Later AM: 2 canes, one in each hand, supervision to modified independent, slow gait, no LOB. Stairs: NE Balance: Sitting Static: wfls Sitting Dynamic: wfls Standing Static: supervision Standing Dynamic / Gait: cga without device. 1-2 canes used supervision to modified independent Five Times Sit to Stand Test Time to complete 5 stands: 18 sec Comments: from EOB Normal Values: Greater than 13.6 seconds indicates increased disability and morbidity. - (Ana, 2000) The optimal cutoff time for performing the FTSS test in predicting recurrent falls is 15 seconds. -(Kyle et al., 2008) References: Manish Perez, Marlen Starkey, et al. (2000). Lower extremity function and subsequent disability: consistency across studies, predictive models, and value of gait speed alone compared with the short physical performance battery. J Gerontol A Biol Sci Med Sci 55(4): M221-31. Kyle S, Dean D, Agustin P, Florinda R, Kalyan P, Roldan G et al. Five times sit to stand test is a predictor of recurrent falls in healthy community?living subjects aged 65 and older. J Am Geriatr Soc 2008; 56(8):1575?1577 Rhomberg EC with mild trunk sway, no LOB, > 10 sec.. Dianaerg, EC with progressive increased trunk sway and stepping out around 8 seconds. ~2 sec unilateral stance on BLE, more challenging on LLE Unable to photoengraving apprentice sharpened rhomberg, EO. Education: patient has been educated on Bed mobility, Transfers, Assistive device/technique, Safety, Gait , Role of therapy, Balance, and Discharge planning and verbalizes and demonstrates understanding. Pt knows to use 2 canes on uneven ground. 1-2 canes inside his home. Pt will use a night lightfor night and sun glasses during the day to allow pt to use vision to compensate for balance deficits. Patient status, treatment, and mobility recommendations discussed with nursing. Pt left seated in the chair after both sessions with Seat alarm activated. DO present at end of 1st session and he was notified about dark lesion on head and dc planning. Assessment: Keegan Delgadillo was seen today for physical therapy and OT Co evaluation. Pt is HD 2 with B PICA infarcts. Pt is far from his baseline of function and benefited from PT evaluation and treatment, given the following: permissive HTN; visual impairments; Dizziness; nausea; altered skin integrity (pt agrees to follow up with dermatology); incoordination R side > L; sensory deficits; and resulting impairments in gait, balance, and endurance. Despite above, pt was steady with use of 2 canes over 1. Feel he would benefit from ongoing outpt PT for balance, coordination and visual impairments. He states his girlfriend can get him there. Pt will f/u w/ PCP or dermatology to evaluate skin lesion on his head. Pt has adequately met goals for home with significant other (who does not work), using canes and maximizing use of vision. He visually fixates well maintain balance. Inpatient Physical Therapy Plan: evaluation only for balance training, bed mobility training, gait training, motor coordination training, patient/family education, strengthening, and transfer training Discharge Recommendations: Based on current findings- home with supervision, home with outpatient therapy services (needs an outpt dermatology appt for forehead lesion) Consult Recommendations: outpt dermatology Equipment needs: (2 canes given to patient) Patient/family understand and agree with plan as stated above. PT Evaluation Code Rationale: Diagnosis & Pertinent Co-Morbidities, personal factors, and present illness affecting Plan of Care: (see above); Additional personal factors or co- morbidities that impact plan: Total # of Factors: 0 1-2 3+ x Examination of body system impairments, functional limitations and behaviors, and/or participation restrictions. Addressing 1-2 elements Addressing 3 + elements x Addressing 4 + elements Clinical presentation: See assessment above. Stable/Uncomplicated Evolving/Fluctuating Symptoms Unstable/Unpredictable x Clinical decision making of low complexity based on pt's functional performance as outlined in thisevaluation. Time IN / OUT: 0343-0820 and 8138-8236 Total Time: (45 minutes + 10) minutes; Low EV and TEF3 BARBIE MCNAMARA, PT Pager: [phone] Physical Therapy Inpatient Rehabilitation Department * Tristan Cary, DO - 05/01/2024 7:08 AM EDT Neurology Progress Note Patient name: Keegan Delgadillo Date of : 1960 PCP: Ml Felton APRN CC: dizziness / nausea / vomiting HPI: Keegan Delgadillo is a 63 y.o. male R handed male with a PMH of recent HTN (though per pt report also has had issues with low blood pressure), ?lumbar spine injury, who presented to the ED with complaints of dizziness for the last several days. 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 Pt presents here with his mother and his sister. Pt states that he went to [facility] on Friday with fevers, vomiting, nausea, and high blood pressure (GFstates top number was 196 at one point). 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 Pt reports that he initially started having some symptoms the day before (Wednesday 04/25) around 11 AM when he started having a JOY and took some ibuprofen. Friday morning GF states that he seemed very anxious and by 8-830 AM he was throwing up and GF states that he appeared to be throwingup blood. GF states he was also feverish though the only temp they got on thermometer was about 99.6 F, states thermometer after that and they didn't take any additional temperatures. Pt's sister states that about 10 years ago he would have dizzy spells and have periods of blacking out though hasn't had any similar symptoms for the last 10 years. Pt and family state that he has continued to have nausea since onset on Friday, which has essentially been unchanged. He was prescribed some nausea medicine on Friday, last episode of vomiting was before he took the nausea medicine. Denies noticing any bloody vomitus since Friday, though feels he can taste some blood in his mouth since then. Pt denies that he has had any further JOY since episode on Friday. Pt states his vision has been getting worse over the years, though no acute vision changes since onset of current symptoms. Pt stateshe has been having some R shoulder pain since onset of symptoms, and some intermittent tingling in the R hand. Also reports that the week before onset of symptoms he was having numbness in the L leg which he attributes to having some back problems. GF states that he had imaging [facility] low back [facility] roughly last summer and states he was told he had a broken back, though these images are not available for review. Pt denies having any numbness/tingling in the L leg currently. Denies difficulty swallowing, speech changes, new weakness. Pt does endorse that he feels his equilibrium is off and he is having some difficulty with his balance. He denies veering, though his GF states that she has noticed that he seems to be veering to the R. Denies starting any new recent medications recently (aside from the nausea medicine and stomach medicine which they believe are omeprazole and zofran). He denies taking any other medications. There is a family history of diabetes, stroke/TIA and heart attacks on dad's side of the family. 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 Some incoordination more on the right. Denies numbness, diplopia, headache. Has occasional nausea and some posterior neck pain. Denied recent trauma Home Medications: No current facility-administered medications on file prior to encounter. No current outpatient medications on file prior to encounter. Current Medications: Scheduled Meds: atorvastatin 40 mg Oral QPM pantoprazole EC 40 mg Oral Daily sodium chloride 0.9 % (flush) 5 mL Intravenous BID enoxaparin 40 mg Subcutaneous Nightly aspirin 81 mg Oral Daily Or aspirin 300 mg Rectal Daily Past Medical & Surgical History: No past medical history on file. No past surgical history on file. Allergy: Allergies Allergen Reactions Bupropion Hcl CIS - Hives Family History: No family history on file. 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 Social History Socioeconomic History Marital status: Spouse name: Not on file Number of children: Not on file Years of education: Not on file Highest education level: Not on file Occupational History Not on file Tobacco Use Smoking status: Former Current packs/day: 0.00 Average packs/day: 0.5 packs/day for 47.6 years (23.8 ttl pk-yrs) Types: Cigarettes Start date: 1976 Quit date: 04/25/2024 Years since quittin.0 Smokeless tobacco: Former Types: Chew Quit date: 03/31/2004 Vaping Use Vaping status: Never Used Substance and Sexual Activity Alcohol use: Not Currently Alcohol/week: 12.0 standard drinks of alcohol Types: 12 Cans of beer per week Drug use: Yes Types: Marijuana Sexual activity: Yes Partners: Female Other Topics Concern Not on file Social History Narrative Not on file Social Determinants of Health Financial Resource Strain: Not on file Food Insecurity: Not on file Transportation Needs: Not on file Physical Activity: Not on file Intimate Partner Violence: Not At Risk (04/30/2024) IPV Inpatient Questions Prevent Contact with Others: no Feels Threatened by Someone: no Feels Unsafe at Home: no Physical Signs of Abuse Present: no Housing Stability: Not on file Review of systems: Per HPI Physical Exam: Vitals: Temp: [36.2 ??C (97.2 ??F)-37.4 ??C (99.3 ??F)] Heart Rate: [60-73] Resp: [9-18] BP: (128-159)/(75-104) SpO2: [94 %-98 %] Heart Rate from SpO2: [63 bpm-72 bpm] Gen: Patient of apparent stated age, well nourished, well developed, awake, alert, NAD Head/Neck: Supple, no meningismus; poor dentition CV: NSR with L axis deviation on EKG Resp: respirations appear unlabored on RA Abd: soft, nontender, nondistended Ext: No edema. No bony deformity Neuro Exam: MS: Awake, alert, oriented to self, age location, clear language, no dysarthria, follows commands appropriately CN: PERRL, EOMI, visual santiago full Facial sensation intact, there is a slightly droopy appearance of the L eyelid (though pt/family reported this is baseline) Hearing intact to finger rub Palate elevates symmetrically, tongue protrudes midline SCM and trap strength intact Motor: Normal bulk and tone. Sustains AG in all 4 extremities without drift towards bed; full power handgrip Sensation: Intact to light touch throughout without evidence of sensory extinction Coordination: Subtle incoordination of RUE and RLE on testing Gait: Deferred NIH Stroke Scale NIH Stroke Scale Date 04/30/24 NIH Stroke Scale Time 1500 Level of Consciousness 0 LOC Questions 0 LOC Commands 0 Best Gaze 0 Vision 0 Facial Palsy 1 (slight droopy appearance of L eye (baseline)) Motor Arm, Left 0 Motor Arm, Right 0 Motor Leg, Left 0 Motor Leg, Right 0 Limb Ataxia 0 Sensory 0 Best Language 0 Dysarthria 0 Extinction and Inattention: 0 NIH Total Score 1 Labs: Recent Results (from the past 24 hour(s)) Blue Tube HOLD Result Value Ref Range Blue Hold Sample in lab. Gold Tube HOLD Result Value Ref Range Gold Hold Sample in lab. Basic Metabolic Panel (non-fasting) Result Value Ref Range Glucose Lvl 113 65 - 199 mg/dL BUN 14 10 - 20 mg/dL Creatinine 0.78 (L) 0.80 - 1.50 mg/dL Sodium 141 135 - 145 mmol/L Potassium 3.8 3.5 - 5.0 mmol/L Chloride 103 98 - 107 mmol/L CO2 27 22 - 31 mmol/L Anion Gap 11 5 - 15 mmol/L Calcium 9.6 8.5 - 10.5 mg/dL Estimated GFR 101 >=60 mL/min/1.73 m?? Hemogram Result Value Ref Range WBC 12.7 (H) 4.0 - 9.5 x10(3)/mcL RBC 5.75 (H) 4.58 - 5.54 x10(6)/mcL Hemoglobin 17.5 (H) 13.7 - 16.5 g/dL Hematocrit 51.2 (H) 40.5 - 48.5 % MCV 89.0 82.9 - 93.1 fL MCH 30.4 27.5 - 32.1 pg MCHC 34.2 32.0 - 35.7 g/dL Platelets 281 145 - 357 x10(3)/mcL RDWSD 42.3 36.0 - 45.0 fL RDWCV 13.1 11.4 - 13.8 % MPV 8.3 7.6 - 12.9 fL nRBC % Auto 0.0 % nRBC Abs Auto 0.000 0.000 - 0.000 x10(3)/mcL Differential, Automated Result Value Ref Range Neutrophils % 71.5 % Neutr Abs (ANC) 9.08 (H) 1.70 - 6.10 x10(3)/mcL Lymphocytes % 20.5 % Lymphocytes Abs 2.6 0.9 - 3.2 x10(3)/mcL Monocytes % 6.8 % Monocyte Abs 0.9 0.3 - 0.9 x10(3)/mcL Eosinophils % 0.3 % Eosinophils Abs 0.0 0.0 - 0.4 x10(3)/mcL Basophils % 0.5 % Basophils Abs 0.1 0.0 - 0.1 x10(3)/mcL Immature Gran % 0.40 % Leila Gran Abs 0.05 (H) 0.00 - 0.04 x10(3)/mcL Hepatic Function Panel Result Value Ref Range Total Protein 7.4 6.1 - 8.0 g/dL Albumin 4.3 3.2 - 5.2 g/dL AST 41 (H) 0 - 39 unit/L ALT 25 0 - 55 unit/L Alk Phos 88 40 - 130 unit/L Total Bilirubin 0.5 0.2 - 1.3 mg/dL Bili, Direct 0.1 0.0 - 0.3 mg/dL Troponin Result Value Ref Range Troponin-T HS 7 <=22 ng/L TSH [place] Result Value Ref Range TSH 2.81 0.27 - 4.20 mcIU/mL Hemoglobin A1c Result Value Ref Range Hemoglobin A1C 5.8 (H) 4.3 - 5.6 % Est Avg Gluc 119 mg/dL Lipid Panel (Reflex Direct LDL) Result Value Ref Range Chol, Total 201 mg/dL Triglycerides 136 mg/dL HDL 39 mg/dL LDL Cholesterol 135 mg/dL Lipid Interpretation See Note APTT Result Value Ref Range PTT 31 25 - 37 sec Prothrombin Time Result Value Ref Range PT 12.4 9.4 - 12.5 sec INR 1.1 Troponin Result Value Ref Range Troponin-T HS 6 <=22 ng/L Blood Gas Venous ([facility]) Result Value Ref Range pH Navarro 7.38 7.32 - 7.42 pCO2 Navarro 48 41 - 51 mmHg pO2 Navarro 33 25 - 40 mmHg HCO3 Navarro 27.6 mmol/L BE Navarro 2.5 mmol/L Hgb Blood Gas 17.4 (H) 13.7 - 16.5 g/dL O2HB Navarro 62.0 % COHB [place] 1.1 % METHB Navarro 0.3 <=1.5 % Na Whole Blood 140 135 - 145 mmol/L K Whole Blood 3.6 3.5 - 5.0 mmol/L ICa Whole Blood 1.19 1.15 - 1.33 mmol/L CL Whole Blood 101 98 - 107 mmol/L Gluc Whole Bld 101 65 - 199 mg/dL Lactate WB 1.3 0.5 - 2.2 mmol/L BGas Source Venous Troponin Result Value Ref Range Troponin-T HS 7 <=22 ng/L Urinalysis with reflex Culture Specimen: Clean Catch Urine Result Value Ref Range Glucose UA Negative Negative mg/dL Protein UA Trace (A) Negative mg/dL Bilirubin UA Negative Negative mg/dL Urobilinogen UA Normal Normal mg/dL pH UA 6.0 5.0 - 8.0 Blood UA Negative Negative mg/dL Ketones UA Trace (A) Negative mg/dL Nitrite UA Negative Negative Leukocytes UA Negative Negative mcL Appearance UA Clear Clear Spec [place] UA >=1.030 (A) 1.005 - 1.030 Color UA Yellow Yellow Culture Reflexed No Urinalysis Microscopic Exam Result Value Ref Range RBC UA 5 (H) 0 - 3 /HPF WBC UA 1 0 - 3 /HPF Basic Metabolic Panel (non-fasting) Result Value Ref Range Glucose Lvl 111 65 - 199 mg/dL BUN 13 10 - 20 mg/dL Creatinine 0.71 (L) 0.80 - 1.50 mg/dL Sodium 138 135 - 145 mmol/L Potassium 3.5 3.5 - 5.0 mmol/L Chloride 103 98 - 107 mmol/L CO2 24 22 - 31 mmol/L Anion Gap 11 5 - 15 mmol/L Calcium 9.1 8.5 - 10.5 mg/dL Estimated GFR 104 >=60 mL/min/1.73 m?? Magnesium Result Value Ref Range Magnesium 0.99 0.69 - 1.07 mmol/L Phosphorus Result Value Ref Range Phosphorus 3.2 2.5 - 4.5 mg/dL Hepatic Function Panel Result Value Ref Range Total Protein 6.5 6.1 - 8.0 g/dL Albumin 3.8 3.2 - 5.2 g/dL AST 43 (H) 0 - 39 unit/L ALT 28 0 - 55 unit/L Alk Phos 76 40 - 130 unit/L Total Bilirubin 0.5 0.2 - 1.3 mg/dL Bili, Direct 0.1 0.0 - 0.3 mg/dL Hemogram Result Value Ref Range WBC 11.9 (H) 4.0 - 9.5 x10(3)/mcL RBC 5.18 4.58 - 5.54 x10(6)/mcL Hemoglobin 15.7 13.7 - 16.5 g/dL Hematocrit 46.1 40.5 - 48.5 % MCV 89.0 82.9 - 93.1 fL MCH 30.3 27.5 - 32.1 pg MCHC 34.1 32.0 - 35.7 g/dL Platelets 264 145 - 357 x10(3)/mcL RDWSD 42.5 36.0 - 45.0 fL RDWCV 13.0 11.4 - 13.8 % MPV 8.5 7.6 - 12.9 fL nRBC % Auto 0.0 % nRBC Abs Auto 0.000 0.000 - 0.000 x10(3)/mcL Differential, Automated Result Value Ref Range Neutrophils % 69.4 % Neutr Abs (ANC) 8.27 (H) 1.70 - 6.10 x10(3)/mcL Lymphocytes % 21.2 % Lymphocytes Abs 2.5 0.9 - 3.2 x10(3)/mcL Monocytes % 7.6 % Monocyte Abs 0.9 0.3 - 0.9 x10(3)/mcL Eosinophils % 0.5 % Eosinophils Abs 0.1 0.0 - 0.4 x10(3)/mcL Basophils % 0.6 % Basophils Abs 0.1 0.0 - 0.1 x10(3)/mcL Immature Gran % 0.70 % Leila Gran Abs 0.08 (H) 0.00 - 0.04 x10(3)/mcL Neurodiagnostics: Results for orders placed or performed during the hospital encounter of 04/30/24 CT Angiogram Carotids & Kenaitze of Acharya (Exam End: 04/30/2024 2:00 PM) Result Value WORKSTATION ID [id number] Impression Near complete occlusion of the hypoplastic extracranial [...] in the care of this patient. If you are a health care provider and have any questions regarding this report, please contact the number below. For patients who have questions please contact the health personal care service provider that requested your imaging first. Angiogram Abdomen & Pelvis w Contrast (Generic) (Exam End: 04/30/2024 2:00 PM) Result Value WORKSTATION ID [id number] Impression 1. No acute findings in the chest or abdomen to explain dizziness or chest pain. 2. Mural irregularity of the right common iliac artery may represent a small focus of plaque erosion. I have personally reviewed the image(s) and the resident's interpretation and agree with the findings, Ivan Zuniga MD at 04/30/2024 3:00 PM Thank you for letting us participate in the care of this patient. If you are a health care provider and have any questions regarding this report, please contact the number below. For patients who have questions please contact the health personal care service provider that requested your imaging first. Head wo Contrast (Generic) (Exam End: 04/30/2024 2:00 PM) Result Value WORKSTATION ID [id number] Impression Findings of bilateral PICA distribution infarcts, with suspected acute/subacute component. No intracranial hemorrhage or mass effect. Thank you for letting us participate in the care of this patient. If you are a health care provider and have any questions regarding this report, please contact the number below. For patients who have questions please contact the health personal care service provider that requested your imaging first. Brain wo Contrast (Exam End: 04/30/2024 9:17 PM) Result Value WORKSTATION ID [id number] Impression 1. Bilateral inferior cerebellar infarcts. 2. No posterior fossa mass effect. 3. Absent flow-void within the high cervical right vertebral artery concordant with recent CTA findings, concerning for vertebral artery dissection or occlusion. Thank you for letting us participate in the care of this patient. If you are a health care provider and have any questions regarding this report, please contact the number below. For patients who have questions please contact the health personal care service provider that requested your imaging first. Assessment and Plan: Keegan Delgadillo is a 63 y.o. R handed male with a PMH of recent HTN (though per pt report also has had issues with low blood pressure), ?lumbar spine injury, who presented to the ED with complaintsof dizziness for the last several days. Neurology was consulted given CTH findings suggestive of BLPICA territory infarcts. The symptoms localize to the posterior circulation. 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 MRI brain was performed in the emergency department which showed evidence of bilateral inferior cerebellar infarcts as well as an absent flow void in the high right cervical vertebral artery concerning for possible vertebral artery dissection or occlusion. He was out of the window for tPA and mechanical thrombectomy (and deficits are mild). I will give him an aspirin load (though willneed to monitor closely for signs of bleeding given report of recent hematemesis). Will admit to the stroke service for completion of stroke workup as detailed below 05/01/2024 Exam stable. TTE pending. Remains on ASA and atorvastatin for secondary stroke prevention. Pt assessment pending but likely would do well at home with outpt therapy. Low suspicion for cardioembolic etiology so we will defer echo or outpatient heart monitoring # BL inferior cerebellar infarcts -Admit to neurology, floor level of care -Neuro check & vitals Q4hrs / Q4hrs -Permissive HTN, treat SBP >180 with prn labetalol, enalaprilat -Aspirin 325mg now and then 81 mg daily -A1c 5.8 -LDL 135 -Start atorvastatin 40 mg daily -TTE pending -12 lead EKG -Telemetry -MRI brain wo contrast as above -CTA head & neck as above -PT/OT # Nausea / Vomiting # Report of recent hematemesis - zofran q6h PRN - pantoprazole 40 mg daily #Other meds - PRN tylenol -PRN miralax, dulcolax, pericolace #Routine Diet: Regular diet DVT Ppx: lovenox 40 mg # FULL code Stroke Navigator Completed: Yes Tristan Cary DO Neurology Resident, PGY-3 Vascular Neurology Pager [phone] Associated attestation - Avery Witt MD - 05/01/2024 5:02 PM EDT Neurology Staff Note I have reviewed the resident's history during the visit and I agree with the details as written. Myphysical examination confirms the resident's findings. The assessment and plan were formulated in discussion with me at the time of the visit and I agree with them as documented. See H and P. He was ready for DC to home and declined additional inpt rehabilitation * Nena Chandler RN - 05/01/2024 4:07 AM EDT Page Sent Successfully Page Confirmation To Pager number: [phone] From Submitter: Nena Chandler Urgency Level: FYI Callback Number: [phone] The following Message was sent: [FYI] - Callback:[phone] Elie: Pt c/o new numbness to L foot,states it is from SCD. Neuro exam unchanged. - Nena Chandler The following status was returned from the server service assistant: Page for [phone] successfully sent to [phone] having status of Available. * Torres Dobbs RN - 04/30/2024 6:55 PM EDT Ed was admitted from the ED shortly after 1830, presents A&Ox4 breathing normally on RA, moderately diaphoretic, denies any pain, states I feel pretty good actually states the ER gave him nausea medicine approx 45 min ago. Neuro check benign, csms intact x4, no weakness or droop noted. Remotetele applied, NSR on monitor. He was able to order from the kitchen. His Sister Becki is at bedside, interactive/supportive. No acute events. Plan to continue Neuro checks/monitor, needs MRI & ECHO. documented in this encounter H&P Notes * Cas Hammer DO - 04/30/2024 2:34 PM EDT Neurology Admission History and Physical Patient name: Keegan Delgadillo Date of : 1960 PCP: Ml Felton APRN Stroke Assessment: Date last well known:: 04/25/24 Time last well known:: 0800 Date of discovery of symptoms:: 04/25/24 Time of discovery of symptoms:: 0800 The time difference from patients last known well to ED arrival OR inpatient stroke alert was (choose one): Greater than 4.5 hours Date acute stroke team was at bedside:: 04/30/24 Time acute stroke team was at bedside:: 1443 CT interpretation date: 04/30/24 CT interpretation time:: 409 Was dysphagia screen performed?: Yes Did patient pass dysphagia screen?: Yes Date of Dysphagia Screen: 04/30/24 Time of Dysphagia Screen: 1510 CC: dizziness / nausea / vomiting HPI: Keegan Delgadillo is a 63 y.o. male R handed male with a PMH of recent HTN (though per pt report also has had issues with low blood pressure), ?lumbar spine injury, who presented to the ED with complaints of dizziness for the last several days. 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 Pt presents here with his mother and his sister. Pt states that he went to [facility] on Friday with fevers, vomiting, nausea, and high blood pressure (GFstates top number was 196 at one point). 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 Pt reports that he initially started having some symptoms the day before (Wednesday 04/25) around 11 AM when he started having a JOY and took some ibuprofen. Friday morning GF states that he seemed very anxious and by 8-830 AM he was throwing up and GF states that he appeared to be throwingup blood. GF states he was also feverish though the only temp they got on thermometer was about 99.6 F, states thermometer after that and they didn't take any additional temperatures. Pt's sister states that about 10 years ago he would have dizzy spells and have periods of blacking out though hasn't had any similar symptoms for the last 10 years. Pt and family state that he has continued to have nausea since onset on Friday, which has essentially been unchanged. He was prescribed some nausea medicine on Friday, last episode of vomiting was before he took the nausea medicine. Denies noticing any bloody vomitus since Friday, though feels he can taste some blood in his mouth since then. Pt denies that he has had any further JOY since episode on Friday. Pt states his vision has been getting worse over the years, though no acute vision changes since onset of current symptoms. Pt stateshe has been having some R shoulder pain since onset of symptoms, and some intermittent tingling in the R hand. Also reports that the week before onset of symptoms he was having numbness in the L leg which he attributes to having some back problems. GF states that he had imaging of his low back [facility] roughly last summer and states he was told he had a broken back, though these images are not available for review. Pt denies having any numbness/tingling in the L leg currently. Denies difficulty swallowing, speech changes, new weakness. Pt does endorse that he feels his equilibrium is off and he is having some difficulty with his balance. He denies veering, though his GF states that she has noticed that he seems to be veering to the R. Denies starting any new recent medications recently (aside from the nausea medicine and stomach medicine which they believe are omeprazole and zofran). He denies taking any other medications. There is a family history of diabetes, stroke/TIA and heart attacks on dad's side of the family. Home Medications: No current facility-administered medications on file prior to encounter. No current outpatient medications on file prior to encounter. Current Medications: Scheduled Meds: Past Medical & Surgical History: No past medical history on file. No past surgical history on file. Allergy: Allergies Allergen Reactions Bupropion Hcl CIS - Hives Family History: No family history on file. 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 Social History Socioeconomic History Marital status: Spouse name: Not on file Number of children: Not on file Years of education: Not on file Highest education level: Not on file Occupational History Not on file Tobacco Use Smoking status: Not on file Smokeless tobacco: Not on file Substance and Sexual Activity Alcohol use: Not on file Drug use: Not on file Sexual activity: Not on file Other Topics Concern Not on file Social History Narrative Not on file Social Determinants of Health Financial Resource Strain: Not on file Food Insecurity: Not on file Transportation Needs: Not on file Physical Activity: Not on file Intimate Partner Violence: Not At Risk (04/30/2024) IPV Inpatient Questions Prevent Contact with Others: no Feels Threatened by Someone: no Feels Unsafe at Home: no Physical Signs of Abuse Present: no Housing Stability: Not on file Review of systems: Per HPI Physical Exam: Vitals: Temp: [36.2 ??C (97.2 ??F)] Heart Rate: [60-69] Resp: [12-18] BP: (135-159)/(83-104) SpO2: [95 %-98 %] Heart Rate from SpO2: -- Gen: Patient of apparent stated age, well nourished, well developed, awake, alert, NAD Head/Neck: Supple, no meningismus; poor dentition CV: NSR with L axis deviation on EKG Resp: respirations appear unlabored on RA Abd: soft, nontender, nondistended Ext: No edema. No bony deformity Neuro Exam: MS: Awake, alert, oriented to self, age location, clear language, no dysarthria, follows commands appropriately including complex cross-body commands CN: PERRL, EOMI, visual santiago full Facial sensation intact, there is a slightly droopy appearance of the L eyelid (though pt/family report this is baseline) Hearing intact to finger rub Palate elevates symmetrically, tongue protrudes midline SCM and trap strength intact Motor: Normal bulk and tone. Sustains AG in all 4 extremities without drift towards bed; no appreciable pronator drift with armsoutstretched and eyes closed Sensation: Intact to light touch throughout without evidence of sensory extinction Reflexes: DTRs 2+ R, 2+ L Biceps 2+ R, 2+ L Brachioradialis 2+ R, 2+ L Triceps 2+ R, 2+ L Patellar 2+ R, 2+ L Achilles tendon Toes - R down, L down Coordination: Finger to nose intact, no dysmetria Heel-garcia intact No tremor Gait: Deferred NIH Stroke Scale NIH Stroke Scale Date 04/30/24 NIH Stroke Scale Time 1500 Level of Consciousness 0 LOC Questions 0 LOC Commands 0 Best Gaze 0 Vision 0 Facial Palsy 1 (slight droopy appearance of L eye (baseline)) Motor Arm, Left 0 Motor Arm, Right 0 Motor Leg, Left 0 Motor Leg, Right 0 Limb Ataxia 0 Sensory 0 Best Language 0 Dysarthria 0 Extinction and Inattention: 0 NIH Total Score 1 Labs: Recent Results (from the past 24 hour(s)) Blue Tube HOLD Result Value Ref Range Blue Hold Sample in lab. Gold Tube HOLD Result Value Ref Range Gold Hold Sample in lab. Basic Metabolic Panel (non-fasting) Result Value Ref Range Glucose Lvl 113 65 - 199 mg/dL BUN 14 10 - 20 mg/dL Creatinine 0.78 (L) 0.80 - 1.50 mg/dL Sodium 141 135 - 145 mmol/L Potassium 3.8 3.5 - 5.0 mmol/L Chloride 103 98 - 107 mmol/L CO2 27 22 - 31 mmol/L Anion Gap 11 5 - 15 mmol/L Calcium 9.6 8.5 - 10.5 mg/dL Estimated GFR 101 >=60 mL/min/1.73 m?? Hemogram Result Value Ref Range WBC 12.7 (H) 4.0 - 9.5 x10(3)/mcL RBC 5.75 (H) 4.58 - 5.54 x10(6)/mcL Hemoglobin 17.5 (H) 13.7 - 16.5 g/dL Hematocrit 51.2 (H) 40.5 - 48.5 % MCV 89.0 82.9 - 93.1 fL MCH 30.4 27.5 - 32.1 pg MCHC 34.2 32.0 - 35.7 g/dL Platelets 281 145 - 357 x10(3)/mcL RDWSD 42.3 36.0 - 45.0 fL RDWCV 13.1 11.4 - 13.8 % MPV 8.3 7.6 - 12.9 fL nRBC % Auto 0.0 % nRBC Abs Auto 0.000 0.000 - 0.000 x10(3)/mcL Differential, Automated Result Value Ref Range Neutrophils % 71.5 % Neutr Abs (ANC) 9.08 (H) 1.70 - 6.10 x10(3)/mcL Lymphocytes % 20.5 % Lymphocytes Abs 2.6 0.9 - 3.2 x10(3)/mcL Monocytes % 6.8 % Monocyte Abs 0.9 0.3 - 0.9 x10(3)/mcL Eosinophils % 0.3 % Eosinophils Abs 0.0 0.0 - 0.4 x10(3)/mcL Basophils % 0.5 % Basophils Abs 0.1 0.0 - 0.1 x10(3)/mcL Immature Gran % 0.40 % Leila Gran Abs 0.05 (H) 0.00 - 0.04 x10(3)/mcL Hepatic Function Panel Result Value Ref Range Total Protein 7.4 6.1 - 8.0 g/dL Albumin 4.3 3.2 - 5.2 g/dL AST 41 (H) 0 - 39 unit/L ALT 25 0 - 55 unit/L Alk Phos 88 40 - 130 unit/L Total Bilirubin 0.5 0.2 - 1.3 mg/dL Bili, Direct 0.1 0.0 - 0.3 mg/dL Troponin Result Value Ref Range Troponin-T HS 7 <=22 ng/L TSH [place] Result Value Ref Range TSH 2.81 0.27 - 4.20 mcIU/mL Troponin Result Value Ref Range Troponin-T HS 6 <=22 ng/L Blood Gas Venous ([facility]) Result Value Ref Range pH [place] 7.38 7.32 - 7.42 pCO2 [place] 48 41 - 51 mmHg pO2 [place] 33 25 - 40 mmHg HCO3 [place] 27.6 mmol/L BE [place] 2.5 mmol/L Hgb Blood Gas 17.4 (H) 13.7 - 16.5 g/dL O2HB [place] 62.0 % COHB [place] 1.1 % METHB [place] 0.3 <=1.5 % Na Whole Blood 140 135 - 145 mmol/L K Whole Blood 3.6 3.5 - 5.0 mmol/L ICa Whole Blood 1.19 1.15 - 1.33 mmol/L CL Whole Blood 101 98 - 107 mmol/L Gluc Whole Bld 101 65 - 199 mg/dL Lactate WB 1.3 0.5 - 2.2 mmol/L BGas Source Venous Neurodiagnostics: Results for orders placed or performed during the hospital encounter of 04/30/24 CT Angiogram Carotids & Kenaitze of Acharya (Exam End: 04/30/2024 2:00 PM) Result Value WORKSTATION ID [id number] Impression Near complete occlusion of the hypoplastic extracranial [...] in the care of this patient. If you are a health care provider and have any questions regarding this report, please contact the number below. For patients who have questions please contact the health personal care service provider that requested your imaging first. Angiogram Abdomen & Pelvis w Contrast (Generic) (Exam End: 04/30/2024 2:00 PM) Result Value WORKSTATION ID [id number] Impression 1. No acute findings in the chest or abdomen to explain dizziness or chest pain. 2. Mural irregularity of the right common iliac artery may represent a small focus of plaque erosion. I have personally reviewed the image(s) and the resident's interpretation and agree with the findings, Ivan Zuniga MD at 04/30/2024 3:00 PM Thank you for letting us participate in the care of this patient. If you are a health care provider and have any questions regarding this report, please contact the number below. For patients who have questions please contact the health personal care service provider that requested your imaging first. Head wo Contrast (Generic) (Exam End: 04/30/2024 2:00 PM) Result Value WORKSTATION ID [id number] Impression Findings of bilateral PICA distribution infarcts, with suspected acute/subacute component. No intracranial hemorrhage or mass effect. Thank you for letting us participate in the care of this patient. If you are a health care provider and have any questions regarding this report, please contact the number below. For patients who have questions please contact the health personal care service provider that requested your imaging first. Brain wo Contrast (Exam End: 04/30/2024 9:17 PM) Result Value WORKSTATION ID [id number] Impression 1. Bilateral inferior cerebellar infarcts. 2. No posterior fossa mass effect. 3. Absent flow-void within the high cervical right vertebral artery concordant with recent CTA findings, concerning for vertebral artery dissection or occlusion. Thank you for letting us participate in the care of this patient. If you are a health care provider and have any questions regarding this report, please contact the number below. For patients who have questions please contact the health personal care service provider that requested your imaging first. Assessment and Plan: Keegan Delgadillo is a 63 y.o. R handed male with a PMH of recent HTN (though per pt report also has had issues with low blood pressure), ?lumbar spine injury, who presented to the ED with complaintsof dizziness for the last several days. Neurology was consulted given CTH findings suggestive of BLPICA territory infarcts. The symptoms localize to the posterior circulation. 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 MRI brain was performed in the emergency department which showed evidence of bilateral inferior cerebellar infarcts as well as an absent flow void in the high right cervical vertebral artery concerning for possible vertebral artery dissection or occlusion. He was out of the window for tPA and mechanical thrombectomy (and deficits are mild). I will give him an aspirin load (though willneed to monitor closely for signs of bleeding given report of recent hematemesis). Will admit to the stroke service for completion of stroke workup as detailed below Alteplase: IV Thrombolytics decision time: 1510 Was IV Thrombolytics given?: No Other reasons (Hospital-related or other factors) 3 - 4.5 hour treatment window. Select all that apply.: Delay in patient arrival/outside window # BL inferior cerebellar infarcts -Admit to neurology, floor level of care -Neuro check & vitals Q4hrs / Q4hrs -Permissive HTN, treat SBP >180 with prn labetalol, enalaprilat -Aspirin 325mg now and then 81 mg daily -A1c 5.8 -LDL 135 -Start atorvastatin 40 mg daily -TTE pending -12 lead EKG -Telemetry -MRI brain wo contrast as above -CTA head & neck as above -PT/OT # Nausea / Vomiting # Report of recent hematemesis - zofran q6h PRN - pantoprazole 40 mg daily #Other meds - PRN tylenol -PRN miralax, dulcolax, pericolace #Routine Diet: Regular diet DVT Ppx: lovenox 40 mg # FULL code Stroke Navigator Completed: Yes Cas Hammer DO Neurology Resident, PGY-3 Vascular Neurology Pager [phone] Case was discussed with attending neurologist Dr. Avery Witt MD Standard [facility] [place] Swallow Screen: This screen is to be used to document a Swallow Screen prior to ingestion of water and /or oral medications for patients with possible stroke (Ischemic or Hemorrhagic). Exclusion Criteria: A swallow screen is not to be performed on patients who: have a decreased level of consciousness. are not able to follow simple commands. are hypoxic, or have increasing O2 needs or may need to be intubated. have a G/J tube for nutrition. have a recent history of a swallowing disorder *These patients should remain NPO (HOLD MEDS) and the physician notified for further orders. Swallow Screen Using Water: None of the Exclusion Criteria as mentioned above is present? Patient is alert and sitting upright? Able to close lips and tongue is midline? Able to cough, manage oral secretions with dry voice? ONLY IF ABOVE ALL YES, Able to swallow 30 ml of water without coughing, displaying a wet voice or choking? Repeat Twice. If YES to all responses, proceed with water and oral medications as well as diet as medical provider deems appropriate. Consider [employer] consult for full evaluation and diet recommendations. If NO to any of the responses, stop immediately, keep patient NPO and notify physician. Associated attestation - Avery Witt MD - 05/01/2024 5:01 PM EDT Neurology Staff Note I have reviewed the above resident's history during the visit and I agree with the details as written. My physical examination confirms the resident's findings. The assessment and plan were formulated in discussion with me at the time of the visit and I agree with them as documented. I saw him today and he had some intermittent nausea but otherwise was doing well. We reviewed his imaging results and dx and I provided our standard educational materials. He does not recall any trauma or falls prior to the onset of his abrupt dizziness but he had some occipital JOY the day prior to the stroke symptoms. He agreed to start a low dose of amlodipine. Smoking cessation counseling was provided and he declined medical interventions to assist this. I have examined the patient myself and personally reviewed all studies. In addition, I certify thatI am a [facility] credentialed attending provider with admitting privileges and that the patient meets or has met medical necessity to require an inpatient IPI level of care meeting a minimum of two midnights or is on the [facility] inpatient only procedure list (status C) due to: neurologic instability requiring neurologic checks at least every 4 hours. acute stroke requiring neurologic checks at least every 4 hours. MCCs and CCs on admission (Present if in bold): Clinically significant cerebral edema, vasogenic Hyponatremia CHF acute, systolic Brain compression Hypernatremia CHF acute on chronic, systolic Clinically significant cerebral edema, cytotoxic Cerebellar ataxia CHF acute on chronic, diastolic Coma Hypertension, malignant CHF acute diastolic Hemiplegia Hypertension accelerated CHFchronic diastolic Hemiparesis Hypertensive encephalopathy Dementia with delrium Quadraplegia Malnutrition BMI<19 Dementia with depression Encephalopathy, metabolic Cachexia Alzheimer's Dementia with behavioral disturbance Encephalopathy, toxic Morbid obesity, BMI>40 Anoxic brain damage Encephalopathy, other CKD stage 4 (eGFR 15-30ml/min/1.73m2) Acute Kidney Injury Delirium, drug induced CKD stage 5 or ESRD Paroxysmal AF Persistent AF Longstanding persistent AF Permanent AF documented in this encounter ED Notes * Leonarda Han RN - 04/30/2024 5:11 PM EDT Pt vomiting, very small amount of emesis produces (clear). Pt mostly dry heaving. Team paged at [phone]. See MAR. * Angelina Navarrete MD - 04/30/2024 2:46 PM EDT ED Resident Note HPI: Keegan Delgadillo is a 63 y.o. male with history of HTN, tobacco use disorder who presents to the Emergency Department with complaint of dizziness and nausea. Patient states that he got up to go to work on 04/25 at 3 AM. He went out to his truck and then states that he had sudden onset of dizziness,, nausea and vomiting. He was also sweating profusely. He denies having any chest pain at that time. He did not feel short of breath. He was able to get back into the house but felt incredibly dizzy and lightheaded with walking. His girlfriend woke up about 5hours later and found him on the couch. He was vomiting profusely and was very diaphoretic. Around 10 AM he went to an outside hospital emergency department. At that point they report that the patient had been vomiting and eventually started vomiting blood. He was worked up for this and they state he had CT scans of his chest and abdomen. Patient did stop vomiting and felt a little bit better andhe was discharged home on an acid suppressing medication. His vomiting has decreased and he has nothad any further bright red hematemesis. However, he is persistently lightheaded particularly when he stands but the dizziness never goes away entirely. He also has some persistent nausea and vomiting. He has no appetite. He has been so dizzy that he is unable to work because he cannot stand and walk. When he tries to walk he needs to hold onto the wall. Denies fever, chest pain, shortness of breath, abdominal pain. Patient states that he smokes cigarettes but this week he has been feeling so unwell that he has not been smoking. He drinks 2-3 drinks daily. Denies any history of withdrawal. Patient sister and girlfriend are at the bedside and contribute to the history. ROS as per HPI Vitals: ED Triage Vitals [04/30/24 1148] BP: 159/90 Heart Rate: 68 Resp: 16 Temp: 36.2 ??C (97.2 ??F) Temp src: Temporal SpO2: 98 % O2 Device: O2 Flow Rate (L/min): n/a Physical Exam Gen: awake and alert, speaking in full sentences, well-developed and well-nourished HEENT: normocephalic, atraumatic; EOMI, PERRL, no scleral icterus, no conjunctival injection; normal nares; MMM Pulm: CTAB, no wheezes/rhonchi/rales Card: RRR, no murmur/rub/gallop Abd: soft, nontender, no rebound or guarding Ext: moves all extremities equally, no appreciable joint swelling or deformity Neuro: CN II-XII intact, oriented x3, equal reporter strength bilaterally, 5/5 elbow flexion/extension,5/5 shoulder abduction, 5/5 hip flexion, 5/5 ankle dorsiflexion/plantarflexion, sensation grossly intact, normal finger-nose, normal [id number], bilateral horizontal nystagmus Skin: no rashes or lesions noted on already exposed skin Psych: normal affect and behavior ED Course: I have reviewed labs and imaging, images and available reports, and they are significant for: ED Course as of 04/30/24 1623 FriApril 30, 2024 1421 Paged [facility] neuro 1533 WBC(!): 12.7 1533 Hemoglobin(!): 17.5 1533 Platelets: 281 Mild leukocytosis, arterial cytosis. Otherwise unremarkable 1533 AST(!): 41 1533 ALT: 25 1533 Alk Phos: 88 1533 Total Bilirubin: 0.5 1533 Bili, Direct: 0.1 1533 Hepatic Function Panel(!) Slightly elevated AST otherwise normal LFTs 1534 Glucose Lvl: 113 1534 BUN: 14 1534 Creatinine(!): 0.78 1534 Sodium: 141 1534 Potassium: 3.8 1534 Chloride: 103 1534 CO2: 27 1534 Anion Gap: 11 1534 Basic Metabolic Panel (non-fasting)(!) Unremarkable BMP 1534 TSH: 2.81 Normal TSH 1534 Lactate WB: 1.3 Normal lactate 1534 Troponin-T HS: 6 Initial troponin 1534 EKG 12 Lead Normal sinus rhythm at a rate of 64. Left axis deviation. Normal intervals. No ST segment or T wavechanges concerning for ischemia. No prior for comparison. CT Angiogram Carotids & [place] of Acharya Final Result Near complete occlusion of the hypoplastic extracranial [...] in the care of this patient. If you are a health care provider and have any questions regarding this report, please contact the number below. For patients who have questions please contact the health personal care service provider that requested your imaging first. Angiogram Abdomen & Pelvis w Contrast (Generic) Final Result 1. No acute findings in the chest or abdomen to explain dizziness or chest pain. 2. Mural irregularity of the right common iliac artery may represent a small focus of plaque erosion. I have personally reviewed the image(s) and the resident's interpretation and agree with the findings, Ivan Zuniga MD at 04/30/2024 3:00 PM Thank you for letting us participate in the care of this patient. If you are a health care provider and have any questions regarding this report, please contact the number below. For patients who have questions please contact the health personal care service provider that requested your imaging first. Head wo Contrast (Generic) Final Result Findings of bilateral PICA distribution infarcts, with suspected acute/subacute component. No intracranial hemorrhage or mass effect. Thank you for letting us participate in the care of this patient. If you are a health care provider and have any questions regarding this report, please contact the number below. For patients who have questions please contact the health personal care service provider that requested your imaging first. Procedures Assessment and Plan: 63 y.o. male with history of HTN, tobacco use disorder who presents to the Emergency Department with complaint of dizziness and nausea. The patient was hemodynamically stable and vital signs were notable for mild hypertension. Patient presented with persistent dizziness, nausea and vomiting. There is some position allergy to his symptoms but they are not clearly provoked by head turning or sitting up and he has some low-level dizziness at all times. As such, concern for central etiology. Zulma-Hallpike negative bilaterally. Also considered ACS -EKG nonischemic, initial troponin is 6. Will require 1 additional troponin butoverall lower suspicion for cardiac etiology. This could represent an arrhythmia however observed patient experiencing symptoms without any rhythm change on the monitor. Considered aortic pathology, CTA of the chest abdomen pelvis without acute aortic pathology. CT head and CACOW revealed acute PICA infarcts. Vascular neurology was consulted. Given his historyof hematemesis held aspirin. He will be admitted to the neurology service for further workup of hisCVA. The visit findings, diagnosis, and care plan were discussed with the patient. Angelina Navarrete MD Resident 04/30/24 [id number] Associated attestation - Nahomy Ferrari MD - 05/01/2024 9:44 AM EDT ED ATTENDING ATTESTATION NOTE The patient was seen in conjunction with the resident physician. I have independently performed thekey portions of the history and physical exam. I have reviewed the diagnostic studies including labs, imaging studies and EKGs. I have discussed the details of the case with the resident and agree with the assessment and plan as described in the resident note. documented in this encounter Miscellaneous Notes * Initial Assessments - Alexia Wood OT - 05/01/2024 9:37 AM EDT Occupational Therapy Evaluation Patient profile: Keegan Delgadillo is a 63 y.o. male admitted on 04/30/2024 with complaints of dizziness for the last several days. 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 . No past medical history on file. No past surgical history on file. Social History: Patient lives with his S.O. Home Setup: trailer, ramp to enter. Tub/shower DME: none Baseline ADL/Mobility: Indep with ADLs, IADLs, drives. Works 3 jobs Precautions/Special Considerations: Up with assistance; telemetry; -Permissive HTN, treat SBP >180 Subjective: I was nauseous for a week before coming to the hospital Objective: Seen today for OT evaluation. Cognitive Status/Behavior: Behavior / Mood: alert and cooperative Alert and oriented to: person, place, time, and situation Follows commands: multi step and 100% of the time Attention: WFL Safety awareness: WFL Vision & Perception: Has been wearing [employer] readers. Pupils appeared a bit sluggish to light, R>L. Pt with no c/o of blurred vision Communication: WFL Range of motion, strength, coordination: Hand dominance: right Bilateral UEs are within functional limitations LE limitations: WFL Sensation: intact to light touch Activities of Daily Living: Self-feeding: indep Grooming: indep Dressing: Indep doffed socks in long sit, donned sitting EOB. Donned laced up work boots seated EOB. Tied pants in stand. Bathing: not formally assessed, anticipate independent Toileting: Not formally assessed. Anticipate SBA for transfer, indep with clothing management/hygiene Functional Mobility: Supine to sit: modified indep going to the left, HOB elevated 30 degrees Sit to stand: close supervision initial stand Ambulation: close supervision household distance `75 feet, no device, pt walking carefully, though able to scan without any c/o of dizziness. Supervision with cane household distance 75 feet. Stand to sit: indep Sit to supine: N/A, left seated in recliner Balance: Sitting balance: able to maintain dynamic sitting balance independently Standing balance: supervision dynamic balance Vitals: At Rest With Activity SpO2 96% 96% Heart Rate 70 79 Blood Pressure 154/100 EOB 136/100 Pain: 0/10 States his legs felt weak when ambulating for functional activities (has basically been in bed for a week due to nausea). Mild c/o dizziness wit6h LE ADLs, ROM testing /assessment. Skin: intact Education: patient has been educated on Role of occupational therapy/rehabilitation, Transfers, ADL, Safety, Precautions/Protocol, Functional Mobility, Activity pacing/Energy conservation, Balance, Recommendations, and Discharge planning and verbalizes and demonstrates understanding. Patient status, treatment, and mobility recommendations discussed with nursing. Assessment: Pt has been seen for occupational therapy evaluation. Keegan Delgadillo presents with the following performance skill deficits and client factors: decreased activity tolerance and decreased sitting / standing balance. These performance deficits have led to activity limitations and participation restrictions in the following areas of occupation: transfers / mobility, home management, and work. However, despite the deficits listed above pt demonstrates the ability to perform base ADLsindependently. Pt presents with slight delayed responses with finger to nose on the right side, andheel to garcia. When balance challenged by PT, patient did report increased dizziness. PT recommending outpatient PT to address balance deficits. No further skilled OT intervention anticipated. Anticipate that pt will return home with assistance of S. O. once medically ready. Do not anticipate further OT needs while hospitalized. Equipment needs at discharge: cane, single point issued by PT. Anticipated Discharge Disposition: home. PT recommend outpatient PT for balance deficits, no further OT intervention indicated Other Recommendations: Utilize upright chair position using bed features or transfer to recliner chair as appropriate withSBA, ambulate as tolerated with cane, SBA Encourage participation in ADL's by providing set up A on tray table and physical assist only as needed Other Recommendations: No other consults recommended at this time. Plan: OT: Therapy Frequency (OT): evaluation only Total Minutes, Occupational Therapy: 37 (09:00-09:37) 2017 OT Evaluation Code Rationale: Diagnosis & Pertinent Co-Morbidities affecting Plan of Care: see PMHx Occupational Profile & Client History: Brief Expanded Extensive x Assessment of Occupational Performance: 1-3 performance deficits x 3-5 performance deficits 5 + performance deficits Clinical Decision Making: Low Moderate High x Clinical decision making of low complexity using standardized patient assessment instrument and measurable assessment of functional outcome. Pager: [phone] Alexia Wood OT 05/01/2024 Occupational Therapy Rehabilitation Department * Plan of Care - Nena Chandler RN - 05/01/2024 6:57 AM EDT OUTCOME EVALUATION NOTE: OUTCOME SUMMARY: Patient is AOx4, calm and cooperative with care. Continues to c/o dizziness upon ambulation at times. Pt c/o L foot numbness this morning, he believes this was caused by SCD, provider notified. Otherwise, neuro exam unchanged. Pt nauseous w/ small emesis this morning, no blood observed in emesis. IV zofran given with good effect. MRI brain completed in evening. Urinalysis sent to lab, see chart for details. VSS on RA. NSR on telemetry. Pt voiding in urinal, PVR=0. Safety precautions maintained. PLAN MOVING FORWARD: Q4 VS/ NC Q4 bladder scan Echocardiogram Nausea management PT/OT INDIVIDUALIZED FALL PREVENTION INTERVENTIONS: Patient-specific fall risk factors per assessment: Hospital environment, dizziness, nausea Assistance: SBA Supervision: Eyes on Surveillance: Bed locked in low position, call cowart within reach, purposeful hourly rounding, clutter free environment, bed/chair alarm on, family at bedside. Patient-specific fall prevention interventions for sensory deficits provided: N/A CPG GOAL OUTCOME EVALUATION: Continue care plan as documented. Problem: Adult Inpatient Plan of Care Goal: Plan of Care Review 05/01/2024112 by Nena Chandler RN Outcome: Ongoing (Interventions Implemented as Appropriate) 05/01/2024111 by Nena Chandler RN Outcome: Ongoing (Interventions Implemented as Appropriate) Goal: Patient-Specific Goal (Individualized) 05/01/2024112 by Nena Chandler RN Outcome: Ongoing (Interventions Implemented as Appropriate) 05/01/2024111 by Nena Chandler RN Outcome: Ongoing (Interventions Implemented as Appropriate) Goal: Absence of Hospital-Acquired Illness or Injury 05/01/2024112 by Nena Chandler RN Outcome: Ongoing (Interventions Implemented as Appropriate) 05/01/2024111 by Nena Chandler RN Outcome: Ongoing (Interventions Implemented as Appropriate) Goal: Optimal Comfort and Wellbeing 05/01/2024112 by Nena Chandler RN Outcome: Ongoing (Interventions Implemented as Appropriate) 05/01/2024111 by Nena Chandler RN Outcome: Ongoing (Interventions Implemented as Appropriate) Goal: Readiness for Transition of Care 05/01/2024112 by Nena Chandler RN Outcome: Ongoing (Interventions Implemented as Appropriate) 05/01/2024111 by Nena Chandler RN Outcome: Ongoing (Interventions Implemented as Appropriate) documented in this encounter Plan of Treatment Upcoming Encounters Date Type Department Care Team (Late st Contact Info) Description 12/13/2024 11:00 AM EST [place] [address] Juanita Moreau APRN [facility] [place] [address] Scheduled Referrals Name Type Priority Associated Diagnoses Orde r Schedule Referral to Physical Therapy Outpatient Referral Routine Stroke Ordered: 05/01/2024 documented as of this encounter Procedures Procedure Name Priority Date/Time Associated Diagnosis Comments HEMOGRAM Routine 05/01/2024 5:51 AM EDT DIFFERENTIAL, AUTOMATED Routine 05/01/2024 5:51 AM EDT CBC (WITH DIFF) Routine 05/01/2024 5:51 AM EDT PHOSPHORUS Routine 05/01/2024 5:51 AM EDT MAGNESIUM Routine 05/01/2024 5:51 AM EDT HEPATIC FUNCTION PANEL Routine 05/01/2024 5:51 AM EDT BASIC METABOLIC PANEL Routine 05/01/2024 5:51 AM EDT URINALYSIS MICROSCOPIC EXAM STAT 05/01/2024 4:20 AM EDT URINALYSIS WITH REFLEX CULTURE STAT 05/01/2024 4:20 AM EDT MRI BRAIN WO CONTRAST STAT 04/30/2024 9:17 PM EDT HC TROPONIN T STAT 04/30/2024 3:[address] CAROTIDS AND [place] OF ACHARYA W CONTRAST STAT 04/30/2024 2:[address] ANGIOGRAM ABDOMEN AND PELVIS W CONTRAST STAT 04/30/2024 2:[address] HEAD WO CONTRAST (GENERIC) STAT 04/30/2024 2:00 PM EDT BLOOD GAS VENOUS ([facility]) Routine 04/30/2024 1:26 PM EDT HC TROPONIN T STAT 04/30/2024 1:20 PM EDT TROPONIN - SERIES STAT 04/30/2024 12: 01 PM EDT TSH CASCADE STAT 04/30/2024 12:01 PM EDT HEMOGRAM STAT 04/30/2024 12:01 PM EDT DIFFERENTIAL, AUTOMATED STAT 04/30/2024 12:01 PM EDT GOLD TUBE HOLD STAT 04/30/2024 12:01 PM EDT BLUE TUBE HOLD STAT 04/30/2024 12:01 PM EDT APTT STAT 04/30/2024 12:01 PM EDT PROTHROMBIN TIME STAT 04/30/2024 12:0 1 PM EDT CBC (WITH DIFF) STAT 04/30/2024 12:01 PM EDT HEMOGLOBIN A1C STAT 04/30/2024 12:01 PM EDT HEPATIC FUNCTION PANEL STAT 04/30/2024 12:01 PM EDT LIPID PANEL (REFLEX DIRECT LDL) STAT 04/30/2024 12:01 PM EDT BASIC METABOLIC PANEL STAT 04/30/2024 12:01 PM EDT EKG 12-LEAD STAT 04/30/2024 11:46 AM EDT documented in this encounter Results * (ABNORMAL) Differential, Automated (05/01/2024 5:51 AM EDT) Neutrophil % 69.4 % [facility] Neutrophil Absolute 8.27(H) 1.70 - 6.10 x10(3)/mc L [facility] Lymph % 21.2 % [facility] Lymphocytes Abs 2.5 0.9 - 3.2 x10(3)/mc L [facility] Monocyte % 7.6 % [facility] Monocyte Abs 0.9 0.3 - 0.9 x10(3)/ L [facility] Eos % 0.5 % [facility] Eosinophils Abs 0.1 0.0 - 0.4 x10(3)/[facility] Basophil % 0.6 % [facility] Baso Absolute 0.1 0.0 - 0.1 x10(3)/mc L [facility] Immature Gran % 0.70 % [facility] Comment: Immature granulocytes(IG's)percentage and absolute count will include metamyelocytes, myelocytes, and promyelocytes. Blood smears from CBCs yielding IG's will be scanned manually for concordance. If this scan disagrees with the automated IG or if promyelocytes are noted, a manual differential will be performed. Immature Gran Absolute 0.08(H) 0.00 - 0.04 x10(3)/mc L [facility] Blood 05/01/2024 5:51 AM EDT 05/01/2024 6:04 AM EDT Narrative Resulting Agency Comment Spec In Lab Cas Hammer DO HEMATOLOGY ORDERABLE S [facility] [place] [address] * (ABNORMAL) Hemogram (05/01/2024 5:51 AM EDT) White Blood Cell 11.9(H) 4.0 - 9.5 x10(3)/[facility] Red Blood Cell 5.18 4.58 - 5.54 x10(6)/ L [facility] Hemoglobin 15.7 13.7 - 16.5 g/dL [facility] Hematocrit 46.1 40.5 - 48.5 % [facility] Mean Cell Volume 89.0 82.9 - 93.1 [facility] Mean Cell Hemoglobin 30.3 27.5 - 32.1 pg [facility] Mean Cell Hemoglobin Concentration 34.1 32.0 - 35.7 g/dL [facility] Platelet 264 145 - 357 x10(3)/[facility] RDW Standard Deviation 42.5 36.0 - 45.0 [facility] RDW coefficient of variation 13.0 11.4 - 13.8 % [facility] Mean Platelet Volume 8.5 7.6 - 12.9 [facility] NRBC% auto 0.0 % [facility] NRBC Absolute 0.000 0.000 - 0.000 x10(3)/[facility] Blood 05/01/2024 5:51 AM EDT 05/01/2024 6:04 AM EDT Narrative Resulting Agency Comment Spec In Lab Cas Hammer DO HEMATOLOGY ORDERABLE S [facility] [place] [address] * Phosphorus (05/01/2024 5:51 AM EDT) Phosphorus 3.2 2.5 - 4.5 mg/dL [facility] Blood 05/01/2024 5:51 AM EDT 05/01/2024 6:04 AM EDT Narrative Resulting Agency Comment Spec In Lab Avery Witt MD CHEMISTRY ORDERABL ES [facility] [place] [address] * Magnesium (05/01/2024 5:51 AM EDT) [facility] Magnesium 0.99 0.69 - 1.07 mmol/L [facility] Blood 05/01/2024 5:51 AM EDT 05/01/2024 6:04 AM EDT Narrative Resulting Agency Comment Spec In Lab Avery Witt MD CHEMISTRY ORDERABL ES Performing Organization Address [facility] Co de Phone Number [facility] [place] [address] * (ABNORMAL) Basic Metabolic Panel (non-fasting) (05/01/2024 5:51 AM EDT) [facility] Glucose 111 65 - 199 mg/dL [facility] Comment:Diabetes: >=200 mg/d L plus symptoms Blood Urea Nitrogen 13 10 - 20 mg/dL [facility] Creatinine 0.71(L) 0.80 - 1.50 mg/dL [facility] Sodium 138 135 - 145 mmol/L [facility] Potassium 3.5 3.5 - 5.0 mmol/L [facility] Comment: Please note: ??Patients with WBC >100,000 may have falsely elevated Potassium levels. ??For accurate Potassium quantification in these patients send serum separator tube (gold top) for subsequent determinations. ??Contact the Clinical Chemistry Laboratory if there are any questions. Chloride 103 98 - 107 mmol/L [facility] Carbon Dioxide 24 22 - 31 mmol/L [facility] Anion Gap 11 5 - 15 mmol/L [facility] Calcium 9.1 8.5 - 10.5 mg/dL [facility] Est Glomerular Filtration Rate 104 >=60 mL/min/1. 73 m?? [facility] Comment: This patient's estimated [...] MD CHEMISTRY ORDERABL ES Performing Organization Address [facility] Co de Phone Number [facility] [place] [address] * (ABNORMAL) Hepatic Function Panel (05/01/2024 5:51 AM EDT) Protein, Total 6.5 6.1 - 8.0 g/dL [facility] Albumin 3.8 3.2 - 5.2 g/dL [facility] Aspartate Aminotransferase 43(H) 0 - 39 unit/L [facility] Alanine Aminotransferase 28 0 - 55 unit/L [facility] Alkaline Phosphatase 76 40 - 130 unit/L [facility] Bilirubin, Total 0.5 0.2 - 1.3 mg/dL [facility] Bilirubin, Direct 0.1 0.0 - 0.3 mg/dL [facility] Blood 05/01/2024 5:51 AM EDT 05/01/2024 6:04 AM EDT Narrative Resulting Agency Comment Spec In Lab Avery Witt MD CHEMISTRY ORDERABL ES Performing Organization Address [facility]/ZIP Co de Phone Number [facility] [place] [address] * (ABNORMAL) Urinalysis Microscopic Exam (05/01/2024 4:20 AM EDT) RBC, Urine 5(H) 0 - 3 /HPF [facility] WBC, Urine 1 0 - 3 /HPF [facility] Clean Catch Urine 05/01/2024 4:20 AM EDT 05/01/2024 4:39 AM EDT Narrative Resulting Agency Comment Spec In Lab Cas Hammer DO URINE ORDERABLES [facility] [place] [address] * (ABNORMAL) Urinalysis with reflex Culture (05/01/2024 4:20 AM EDT) Glucose, Urine Dipstick Negative Negative mg/dL [facility] Protein, Urine Dipstick Trace(A) Negative mg/dL [facility] Bilirubin, Urine Dipstick Negative Negative mg/dL [facility] Comment: Clinical correlation required for positive Urine Bilirubin results as false positive may occur with some drugs and drug related products. If a false positive is suspected a serum total bilirubin should be considered if clinically indicated. Urobilinogen, Urine Dipstick Normal Normal mg/dL [facility] pH, Urn (dipstick) 6.0 5.0 - 8.0 [facility] Blood, Urine Dipstick Negative Negative mg/dL [facility] Ketone, Urine Dipstick Trace(A) Negative mg/dL [facility] Nitrite, Urine Dipstick Negative Negative [facility] Leukocytes, Urine Dipstick Negative Negative [facility] Appearance, Urine Dipstick Clear Clear [facility] Specific [place] Urine Automated >=1.030(A) 1.005 - 1.030 [facility] Color, Urine Dipstick Yellow Yellow [facility] Reflex to Culture No [facility] Clean Catch Urine 05/01/2024 4:20 AM EDT 05/01/2024 4:39 AM EDT Narrative Resulting Agency Comment Spec In Lab Avery Witt MD URINE ORDERABLES [facility] [place] [address] * MRI Brain wo Contrast (04/30/2024 9:17 PM EDT) WORKSTATION ID [id number] RAD Anatomical Region Laterality Modality Head Magnetic [...] who have questions please contact the health personal care service provider that requested your imaging first. ? Narrative 04/30/2024 9:32 PM EDT EXAMINATION: MRI BRAIN WO CONTRAST CLINICAL HISTORY: Pt p/w dizziness, nausea, and gait disturbance. 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 TECHNIQUE: MRI of the brain performed without intravenous contrast administration. COMPARISON: Head CT 04/30/2024. CT angiogram carotids and [place] 04/30/2024. FINDINGS: Ventricles are normal [...] Head CT 04/30/2024. CT angiogram carotids and [place] 04/30/2024. FINDINGS: Ventricles are normal [...] patients who have questions please contactthe health personal care service provider that requested your imaging first. Avery Witt MD [facility] MRI ORDERABLES * Troponin (04/30/2024 3:27 PM EDT) Troponin-T, High Sensitivity 7 <=22 ng/L [facility] Comment: This patient's troponin [...] troponin value can be found in the [facility] Laboratory Test Catalog Troponin - [facility] Laboratory Test Catalog Reference: Fourth [place] Definition of Myocardial Infarction. Journal of the [place] [employer] 2018;72:8547-7635 Blood 04/30/2024 3:27 PM EDT 04/30/2024 3:33 PM EDT Narrative Resulting Agency Comment Spec In Lab Nahomy Ferrari MD CHEMISTRY ORDERABLES [facility] [address] [place] [address] * CT Head wo Contrast (Generic) (04/30/2024 2:00 PM EDT) WORKSTATION ID [id number] RAD Anatomical Region Laterality Modality Head Computed [...] who have questions please contact the health personal care service provider that requested your imaging first. ? Narrative 04/30/2024 2:07 PM EDT EXAMINATION: CT [...] patients who have questions please contactthe health personal care service provider that requested your imaging first. Nahomy Ferrari MD IMG CT ORDERABLES * CT Angiogram Abdomen & Pelvis w Contrast (Generic) (04/30/2024 2:00 PM EDT) WORKSTATION ID [id number] RAD Anatomical Region Laterality Modality Abdomen, Pelvis [...] who have questions please contact the health personal care service provider that requested your imaging first. ? Narrative 04/30/2024 3:00 PM EDT EXAMINATION: CT [...] patients who have questions please contactthe health personal care service provider that requested your imaging first. Nahomy Ferrari MD IMG CT ORDERABLES * CT Angiogram Carotids & [place] of [place] (04/30/2024 2:00 PM EDT) WORKSTATION ID [id number] RAD Anatomical Region Laterality Modality Neck, Head [...] who have questions please contact the health personal care service provider that requested your imaging first. ? Narrative 04/30/2024 2:28 PM EDT EXAMINATION: CT ANGIOGRAM CAR[place]IDS AND [place] CLINICAL HISTORY: sudden onset dizziness, [...] sided P-comm and P1 segment of the GLOVE EXAMINER. Left P-comm is not identified. There are [...] compressing the vertebral artery. Procedure Note Tavo Guzman DO - 04/30/2024 EXAMINATION: CT ANGIOGRAM CAROTIDS AND [place] OF [place] CLINICAL HISTORY: sudden onset dizziness, [...] sided P-comm and P1 segment of the GLOVE EXAMINER. LeftP-comm is not identified. There are patent [...] C6-C7 transverse foramen, potentially compressing the the V1/[id number] of the vertebral artery. Thank you for letting us participate in the care of this patient. If youare a health care provider and have any questions regarding this report,please contact the number below. For patients who have questions please contactthe health personal care service provider that requested your imaging first. Nahomy Ferrari MD IMG CT ORDERABLES * (ABNORMAL) Blood Gas Venous (NLH) (04/30/2024 1:26 PM EDT) pH, Venous 7.38 7.32 - 7.42 [facility] PCO2, Venous 48 41 - 51 mmHg [facility] PO2, Venous 33 25 - 40 mmHg [facility] Bicarbonate, Venous 27.6 mmol/L [facility] Base Excess, Venous 2.5 mmol/L [facility] Hgb Blood Gas 17.4(H) 13.7 - 16.5 g/dL [facility] Oxyhemoglobin, Venous 62.0 % [facility] Carboxyhemoglob in, Venous 1.1 % [facility] Comment: Nonsmokers: 0.5-1.5% COHB Smokers: Variable, but usually less than 10% Toxic: 20-30% COHB Lethal: Greater than 60% COHB Methemoglobin, Venous 0.3 <=1.5 % [facility] Na Whole Blood 140 135 - 145 mmol/L [facility] K Whole Blood 3.6 3.5 - 5.0 mmol/L [facility] Comment: Please note: Patients with WBC >100,000 may have falsely elevated Potassium levels. Contact the Clinical Chemistry Laboratory if there are any questions. ICa Whole Blood 1.19 1.15 - 1.33 mmol/L [facility] Comment: Note: ??Total bilirubin higher than 20 mg/dL may lead to falsely low ionized calcium. CL Whole Blood 101 98 - 107 mmol/L [facility] Gluc Whole Bld 101 65 - 199 mg/dL [facility] Comment:Diabetes: >=200 mg/d L plus symptoms Lactate WB 1.3 0.5 - 2.2 mmol/L [facility] Blood Gas Source Venous [facility] Blood Venous Draw / Unknown 04/30/2024 1:26 PM EDT 04/30/2024 1:39 PM EDT Narrative Resulting Agency Comment Spec In Lab Angelina Navarrete MD CHEMISTRY ORDERABLES Performing Organization Address City/[facility]/ZIP Co de Phone Number [facility] [place] [address] * Troponin (04/30/2024 1:20 PM EDT) [facility] Troponin-T, High Sensitivity 6 <=22 ng/L [facility] Comment: This patient's troponin [...] troponin value can be found in the [facility] Laboratory Test Catalog Troponin - [facility] Laboratory Test Catalog Reference: Fourth [place] Definition of Myocardial Infarction. Journal of the [place] [employer] 2018;72:9251-5101 Blood 04/30/2024 1:20 PM EDT 04/30/2024 1:33 PM EDT Narrative Resulting Agency Comment Spec In Lab Nahomy Ferrari MD CHEMISTRY ORDERABLES Performing Organization Address City/[facility]/ZIP Co de Phone Number [facility] [address] * Prothrombin Time (04/30/2024 12:01 PM EDT) Prothrombin Time 12.4 9.4 - 12.5 sec [facility] International Normalization Ratio 1.1 [facility] Comment: An INR <2.0 [...] MD HEMATOLOGY ORDERABLE S Performing Organization Address City/[facility]/ZIP Co de Phone Number [facility] [address] * APTT (04/30/2024 12:01 PM EDT) Partial Thromboplastin Time 31 25 - 37 sec [facility] Comment: The PTT is NOT appropriate for heparin monitoring. Use the Anti-Xa level for heparin monitoring (HEP UFH) or LMWH monitoring (HEP LMW). A PTT less than 37 seconds generally indicates adequate hemostasis. Blood No Charge / Unknown 04/30/2024 12:01 PM EDT 04/30/2024 12:11 PM EDT Narrative Resulting Agency Comment Spec In Lab Reshma Shaw MD HEMATOLOGY ORDERABLE S [facility] [place] [address] * Lipid Panel (Reflex Direct LDL) (04/30/2024 12:01 PM EDT) Cholesterol, Total 201 mg/dL [facility] Comment: Desirable: ? <200 mg/dL Borderline High: 200-239 mg/dL Higher: ?>or=348 mg/dL Triglyceride 136 mg/dL [facility] Comment: Normal: ?<150 mg/dL Borderline High: 150-199 mg/dL High: ?200-499 mg/dL Very High: ? >wb=305 mg/dL HDL Cholesterol 39 mg/dL [facility] Comment: Females: High Risk: <50 mg/dL Males: High Risk: <40 mg/dL LDL Cholesterol 135 mg/dL [facility] Comment: Desirable: ? <100 mg/dL Above Desirable: 100-129 mg/dL Borderline High: 130-159 mg/dL High: ?160-189 mg/dL Very High: ? >yc=407 mg/dL Lipid Interpretation See Note [facility] Comment: It is important [...] ACC/AHA Guidelines (most recently Wanda et al. [facility] 09/03/22): For individuals with atherosclerotic cardiovascular disease (ASCVD)or LDL >yz=671 mg/dL, use a high-intensity statin (40-80 mg [...] In Lab Angelina Navarrete MD CHEMISTRY ORDERABLES [facility] [place] [id number] * (ABNORMAL) Hemoglobin A1c (04/30/2024 12:01 PM EDT) Hemoglobin A1c 5.8(H) 4.3 - 5.6 % [facility] Comment: Reference Range: 4.3 [...] Mellitus, Diabetes Care 2013; 36: Suppl. 1, N37-26 Estimated Average Glucose 119 mg/dL [facility] Blood Venous Draw / Unknown 04/30/2024 12:01 PM EDT 04/30/2024 3:26 PM EDT Narrative Resulting Agency Comment Spec In Lab Angelina Navarrete MD CHEMISTRY ORDERABLES Performing Organization Address City/[facility]/ZIP Co de Phone Number [facility] [place] [address] * TSH [place] (04/30/2024 12:01 PM EDT) Thyroid Stimulating Hormone 2.81 0.27 - 4.20 mcIU/mL [facility] Comment: Reference Interval (mcIU/mL): Females: ??First Trimester: 0.23-3.88 ??Second Trimester: 0.22-3.90 ??Third Trimester: 0.44-4.66 Blood No Charge / Unknown 04/30/2024 12:01 PM EDT 04/30/2024 12:13 PM EDT Narrative Resulting Agency Comment Spec In Lab Nahomy Ferrari MD CHEMISTRY ORDERABLES Performing Organization Address [facility] Co de Phone Number [facility] [address] * Troponin (04/30/2024 12:01 PM EDT) Troponin-T, High Sensitivity 7 <=22 ng/L [facility] Comment: This patient's troponin [...] troponin value can be found in the [facility] Laboratory Test Catalog Troponin - [facility] Laboratory Test Catalog Reference: [place] Definition of Myocardial Infarction. Journal of the [place] [employer] 2018;72:2973-2692 Blood Venous Draw / Unknown 04/30/2024 12:01 PM EDT 04/30/2024 12:13 PM EDT Narrative Resulting Agency Comment Spec In Lab Nahomy Ferrari MD CHEMISTRY ORDERABLES Performing Organization Address City/[facility]/ZIP Co de Phone Number [facility] [address] * (ABNORMAL) Hepatic Function Panel (04/30/2024 12:01 PM EDT) [facility] Protein, Total 7.4 6.1 - 8.0 g/dL [facility] Albumin 4.3 3.2 - 5.2 g/dL [facility] Aspartate Aminotransferase 41(H) 0 - 39 unit/L [facility] Alanine Aminotransferase 25 0 - 55 unit/L [facility] Alkaline Phosphatase 88 40 - 130 unit/L [facility] Bilirubin, Total 0.5 0.2 - 1.3 mg/dL [facility] Bilirubin, Direct 0.1 0.0 - 0.3 mg/dL [facility] Blood Venous Draw / Unknown 04/30/2024 12:01 PM EDT 04/30/2024 12:13 PM EDT Narrative Resulting Agency Comment Spec In Lab Nahomy Ferrari MD CHEMISTRY ORDERABLES Performing Organization Address City/[facility]/ZIP Co de Phone Number [facility] [place] [address] * (ABNORMAL) Differential, Automated (04/30/2024 12:01 PM EDT) [facility] Signature Neutrophil % 71.5 % [facility] Neutrophil Absolute 9.08(H) 1.70 - 6.10 x10(3)/mc L [facility] Lymph % 20.5 % [facility] Lymphocytes Abs 2.6 0.9 - 3.2 x10(3)/[facility] Monocyte % 6.8 % [facility] Monocyte Abs 0.9 0.3 - 0.9 x10(3)/[facility] Eos % 0.3 % [facility] Eosinophils Abs 0.0 0.0 - 0.4 x10(3)/[facility] Basophil % 0.5 % [facility] Baso Absolute 0.1 0.0 - 0.1 x10(3)/[facility] Immature Gran % 0.40 % [facility] Comment: Immature granulocytes(IG's)percentage and absolute count will include metamyelocytes, myelocytes, and promyelocytes. Blood smears from CBCs yielding IG's will be scanned manually for concordance. If this scan disagrees with the automated IG or if promyelocytes are noted, a manual differential will be performed. Immature Gran Absolute 0.05(H) 0.00 - 0.04 x10(3)/[facility] Blood 04/30/2024 12:0 1 PM EDT 04/30/2024 12:11 PM EDT Narrative Resulting Agency Comment Spec In Lab Nahomy Ferrari MD HEMATOLOGY ORDERABLE S [facility] [place] [address] * (ABNORMAL) Hemogram (04/30/2024 12:01 PM EDT) White Blood Cell 12.7(H) 4.0 - 9.5 x10(3)/[facility] Red Blood Cell 5.75(H) 4.58 - 5.54 x10(6)/[facility] Hemoglobin 17.5(H) 13.7 - 16.5 g/dL [facility] Hematocrit 51.2(H) 40.5 - 48.5 % [facility] Mean Cell Volume 89.0 82.9 - 93.1 fL [facility] Mean Cell Hemoglobin 30.4 27.5 - 32.1 pg [facility] Mean Cell Hemoglobin Concentration 34.2 32.0 - 35.7 g/dL [facility] Platelet 281 145 - 357 x10(3)/mc L [facility] RDW Standard Deviation 42.3 36.0 - 45.0 [facility] RDW coefficient of variation 13.1 11.4 - 13.8 % [facility] Mean Platelet Volume 8.3 7.6 - 12.9 [facility] NRBC% auto 0.0 % [facility] NRBC Absolute 0.000 0.000 - 0.000 x10(3)/mc L [facility] Blood 04/30/2024 12:0 1 PM EDT 04/30/2024 12:11 PM EDT Narrative Resulting Agency Comment Spec In Lab Nahomy Ferrari MD HEMATOLOGY ORDERABLE S [facility] [address] * (ABNORMAL) Basic Metabolic Panel (non-fasting) (04/30/2024 12:01 PM EDT) Glucose 113 65 - 199 mg/dL [facility] Comment:Diabetes: >=200 mg/d L plus symptoms Blood Urea Nitrogen 14 10 - 20 mg/dL [facility] Creatinine 0.78(L) 0.80 - 1.50 mg/dL [facility] Sodium 141 135 - 145 mmol/L [facility] Potassium 3.8 3.5 - 5.0 mmol/L [facility] Comment: Please note: ??Patients with WBC >100,000 may have falsely elevated Potassium levels. ??For accurate Potassium quantification in these patients send serum separator tube (gold top) for subsequent determinations. ??Contact the Clinical Chemistry Laboratory if there are any questions. Chloride 103 98 - 107 mmol/L [facility] Carbon Dioxide 27 22 - 31 mmol/L [facility] Anion Gap 11 5 - 15 mmol/L [facility] Calcium 9.6 8.5 - 10.5 mg/dL [facility] Est Glomerular Filtration Rate 101 >=60 mL/min/1. 73 m?? [facility] Comment: This patient's estimated [...] and symptoms in addition to eGFR. Blood 04/30/2024 12:0 1 PM EDT 04/30/2024 12:11 PM EDT Narrative Resulting Agency Comment Spec In Lab Nahomy Ferrari MD CHEMISTRY ORDERABLES Performing Organization Address City/[facility] Co de Phone Number [facility] [address] * Gold Tube HOLD (04/30/2024 12:01 PM EDT) Gold Hold Sample in lab. [facility] Blood 04/30/2024 12:0 1 PM EDT 04/30/2024 12:11 PM EDT Nahomy Ferrari MD CHEMISTRY ORDERABLES Performing Organization Address City/[facility]/ZIP Co de Phone Number [facility] [address] * Blue Tube HOLD (04/30/2024 12:01 PM EDT) Blue Hold Sample in lab. [facility] Blood 04/30/2024 12:0 1 PM EDT 04/30/2024 12:11 PM EDT Nahomy Ferrari MD HEMATOLOGY ORDERABLE S [facility] [address] * EKG 12 Lead (04/30/2024 11:46 AM EDT) Ventricular rate 64 BPM MUSE SYSTEM Atrial Rate 64 BPM MUSE SYSTEM P-R Interval 154 ms MUSE SYSTEM QRS Duration 92 ms MUSE SYSTEM Q-T Interval 396 ms MUSE SYSTEM QTC Calculated (Bezet) 408 ms MUSE SYSTEM Calculated P [place] 72 degrees MUSE SYSTEM Calculated R [place] -35 degrees MUSE SYSTEM Calculated T [place] 59 degrees MUSE SYSTEM INTERPRETATION Normal sinus rhythm Left axis deviation Abnormal ECG No previous ECGs available Confirmed by MD MARTINEZ SALVATORE ([id number]) on 04/30/2024 12:59:47 PM MUSE SYSTEM 04/30/2024 11:4 6 AM EDT 04/30/2024 12:59 PM EDT Nahomy Ferrari MD ECG ORDERABLES MUSE SYSTEM documented in this encounter Visit Diagnoses Diagnosis Stroke- Primary Unspecified cerebral artery occlusion with cerebral infarction Stroke Unspecified cerebral artery occlusion with cerebral infarction documented in this encounter Admitting Diagnoses Diagnosis Stroke Unspecified cerebral artery occlusion with cerebral infarction documented in this encounter Administered Medications Inactive Administered Medications - up to 3 most recent administrations Medication Order MAR Action Action Date Dose Rate Site acetaminophen (Tylenol) (32.02 mg/mL) oral liquid 975 mg 975 mg, Per G Tube, EVERY 6 HOURS PRN, Starting on 04/30/24 at 1841, Until 05/01/24 at 1856, Pain, Fever, pain or oral temperature greater than 100 degrees F (measured by mouth), Maximum dose of acetaminophen is 4,000 mg from all sources in 24 hours. When ordered for pain, acetaminophen should be given even when other ordered pain medications are indicated., Routine acetaminophen (Tylenol) suppository 650 mg 650 mg, Rectal, EVERY 6 HOURS PRN, Starting on Fri04/30/24 at 1841, Until 05/01/24 at 1856, Pain, Fever, pain or oral temperature greater than 100 degrees F (measured by mouth), Maximum dose of acetaminophen is 4,000 mg from all sources in 24 hours. When ordered for pain, acetaminophen should be given even when other ordered pain medications are indicated., Routine acetaminophen (Tylenol) tablet 975 mg 975 mg, Oral, EVERY 6 HOURS PRN, Starting on Fri04/30/24 at 1841, Until 05/01/24 at 1856, Pain, Fever, pain or oral temperature greater than 100 degrees F (measured by mouth), Maximum dose of acetaminophen is 4,000 mg from all sources in 24 hours. When ordered for pain, acetaminophen should be given even when other ordered pain medications are indicated., Routine aspirin chewable tablet 324 mg 324 mg, Oral, ONCE, 1 dose, On Fri04/30/24 at 1930, Routine Given 04/30/2024 8:18 PM EDT 324 mg aspirin chewable tablet 81 mg 81 mg, Oral, DAILY, First dose on 05/01/24 at 0900, Until Discontinued, Routine Given 05/01/2024 10:15 AM EDT 81 mg aspirin suppository 300 mg 300 mg, Rectal, DAILY, First dose on 05/01/24 at 0900, Until Discontinued, Routine atorvastatin (Lipitor) tablet 40 mg 40 mg, Oral, EVERY EVENING, First dose on 05/01/24 at 1700, Until Discontinued, Routine enoxaparin (Lovenox) (40 mg/0.4 mL) subcutaneous injection 40 mg 40 mg, Subcutaneous, NIGHTLY, First dose on Fri04/30/24 at 2100, Until Discontinued, Routine Given 04/30/2024 9:57 PM EDT 40 mg Abdominal Tissue iohexoL (Omnipaque) (350 mg/mL) solution 0-200 mL 0-200 mL, Intravenous, ONCE PRN, 1 dose, Starting on Fri04/30/24 at 1841, Until 05/01/24 at 1856, Per Protocol, Warning Vesicant/Irritant Medication , Radiology Contrast, Routine iohexoL (Omnipaque) (350 mg/mL) solution 0-200 mL 0-200 mL, Intravenous, ONCE PRN, 1 dose, Starting on Fri04/30/24 at 1401, Until Fri04/30/24 at 1401, Per Protocol, Warning Vesicant/Irritant Medication , Radiology Contrast, Routine Given 04/30/2024 2:01 PM EDT 125 mLs ondansetron (pf) (Zofran) (2 mg/mL) injection 4 mg 4 mg, Intravenous, EVERY 6 HOURS PRN, Starting on Fri04/30/24 at 1713, Until 05/01/24 at 1856, Nausea, Vomiting, Can give IV if vomiting Given 05/01/2024 3:32 AM EDT 4 mg Given 04/30/2024 5:20 PM EDT 4 mg ondansetron ODT (Zofran-ODT) disintegrating tablet 4 mg 4 mg, Oral, EVERY 6 HOURS PRN, Starting on Fri04/30/24 at 1713, Until 05/01/24 at 1856, Nausea, Routine pantoprazole EC (Protonix) tablet 40 mg 40 mg, Oral, DAILY, First dose on 05/01/24 at 0900, Until Discontinued, DO NOT CRUSH OR OPEN, Routine Given 05/01/2024 10:15 AM EDT 40 mg sodium chloride 0.9 % (flush) (BD PosiFlush Normal Saline 0.9) flush 5 mL 5 mL, Intravenous, 2 TIMES DAILY, First dose on Fri04/30/24 at 2100, Until Discontinued, Routine Given 05/01/2024 10:15 AM EDT 5 mLs Given 04/30/2024 8:22 PM EDT 5 mLs documented in this encounter Active and Recently Administered Medications Times are shown in EDT. Scheduled Medication Order 04/29/2024 04/30/2024 05/01/2024 aspirin chewable tablet 324 mg (COMPLETED) 324 mg, Oral, ONCE, 1 dose, On Fri04/30/24 at 1930, Routine 2018 (Given - Provider: Nena Chandler, WENDI) aspirin chewable tablet 81 mg(Linked Group 1) 81 mg, Oral, DAILY, First dose on 05/01/24 at 0900, Until Discontinued, Routine 1015 (Given - Provid er: Isa Leblanc RN) aspirin suppository 300 mg(Linked Group 1) 300 mg, Rectal, DAILY, First dose on 05/01/24 at 0900, Until Discontinued, Routine 1015 (See Alternativ e - Provider: Isa Leblanc RN) atorvastatin (Lipitor) tablet 40 mg 40 mg, Oral, EVERY EVENING, First dose on 05/01/24 at 1700, Until Discontinued, Routine enoxaparin (Lovenox) (40 mg/0.4 mL) subcutaneous injection 40 mg 40 mg, Subcutaneous, NIGHTLY, First dose on Fri04/30/24 at 2100, Until Discontinued, Routine 2156 (Given - Provider: Nena Chandler RN) pantoprazole EC (Protonix) tablet 40 mg 40 mg, Oral, DAILY, First dose on 05/01/24 at 0900, Until Discontinued, DO NOT CRUSH OR OPEN, Routine 1015 (Given - Provid er: Isa Leblanc RN) prochlorperazine (Compazine) tablet 5 mg 5 mg, Oral, ONCE, 1 dose, On 05/01/24 at 0845, Maximum dose: 50 mg / 24 hrs, Routine 0845 (Due) sodium chloride 0.9 % (flush) (BD PosiFlush Normal Saline 0.9) flush 5 mL 5 mL, Intravenous, 2 TIMES DAILY, First dose on Fri04/30/24 at 2100, Until Discontinued, Routine 2021 (Given - Provider: Nena Chandler RN) 1015 (Given - Provider: Isa Leblanc RN) PRN Medication Order 04/29/2024 04/30/2024 05/01/2024 acetaminophen (Tylenol) (32.02 mg/mL) oral liquid 975 mg(Linked Group 2) 975 mg, Per G Tube, EVERY 6 HOURS PRN, Starting on Fri04/30/24 at 1841, Until 05/01/24 at 1856, Pain, Fever, pain or oral temperature greater than 100 degrees F (measured by mouth), Maximum dose of acetaminophen is 4,000 mg from all sources in 24 hours. When ordered for pain, acetaminophen should be given even when other ordered pain medications are indicated., Routine acetaminophen (Tylenol) suppository 650 mg(Linked Group 2) 650 mg, Rectal, EVERY 6 HOURS PRN, Starting on Fri04/30/24 at 1841, Until 05/01/24 at 1856, Pain, Fever, pain or oral temperature greater than 100 degrees F (measured by mouth), Maximum dose of acetaminophen is 4,000 mg from all sources in 24 hours. When ordered for pain, acetaminophen should be given even when other ordered pain medications are indicated., Routine acetaminophen (Tylenol) tablet 975 mg(Linked Group 2) 975 mg, Oral, EVERY 6 HOURS PRN, Starting on Fri04/30/24 at 1841, Until 05/01/24 at 1856, Pain, Fever, pain or oral temperature greater than 100 degrees F (measured by mouth), Maximum dose of acetaminophen is 4,000 mg from all sources in 24 hours. When ordered for pain, acetaminophen should be given even when other ordered pain medications are indicated., Routine bisacodyL (Dulcolax) suppository 10 mg 10 mg, Rectal, DAILY PRN, Starting on Fri04/30/24 at 1841, Until 05/01/24 at 1856, Constipation, Administer if needed per patient's routine or if no bowel movement within 48 hours to achieve: (1) One bowel movement at least every 48 hours, AND (2) Without straining. If multiple PRN bowel medications ordered, start with magnesium hydroxide, then bisacodyL. Multiple medications may be given concomitantly for constipation. , Routine enalaprilat (Vasotec) (1.25 mg/mL) injection 1.25 mg 1.25 mg, Intravenous, Administer over 5 Minutes, EVERY 6 HOURS PRN, Starting on Fri04/30/24 at 1841, Until 05/01/24 at 1856, hypertension , Systolic blood pressure (SBP) goal LESS THAN 180 mmHg. Administer if blood pressure control not at goal in 30 minutes despite labetaloL when SBP is greater than 220 mmHg or diastolic blood pressure (DBP) is greater than 110 mmHg. Note: enalaprilat can be given with labetaloL or niCARdipine., Routine iohexoL (Omnipaque) (350 mg/mL) solution 0-200 mL 0-200 mL, Intravenous, ONCE PRN, 1 dose, Starting on Fri04/30/24 at 1841, Until 05/01/24 at 1856, Per Protocol, Warning Vesicant/Irritant Medication , Radiology Contrast, Routine iohexoL (Omnipaque) (350 mg/mL) solution 0-200 mL (COMPLETED) 0-200 mL, Intravenous, ONCE PRN, 1 dose, Starting on Fri04/30/24 at 1401, Until Fri04/30/24 at 1401, Per Protocol, Warning Vesicant/Irritant Medication , Radiology Contrast, Routine 1401 (Given - Provider: Laura Boston) labetaloL (Normodyne) (5 mg/mL) injection solution 10-20 mg 10-20 mg, Intravenous, Administer over 2 Minutes, EVERY 15 MIN PRN, Starting on Fri04/30/24 at 1841, Until 05/01/24 at 1856, High Blood Pressure, - Systolic blood pressure (SBP) goal LESS THAN 180 mmHg. Start with 10 mg/dose every 15 minutes. If not at goal with 10 mg/dose then increase to 20 mg/dose for subsequent dosing. - Do not exceed 300 mg per day. - Repeat every 15 minutes for SBP greater than 220 mmHg. - Hold if pulse is less than 50 beats per minute. If labetaloL does not satisfactorily control BP within 30 minutes, consider enalaprilat or niCARdipine., Routine lidocaine (Xylocaine) 1% (10 mg/mL) injection 3 mg 3 mg (0.3 mL), Subcutaneous, ONCE PRN, 1 dose, Starting on Fri04/30/24 at 1841, Until 05/01/24 at 1856, for discomfort with PIV insertion, Routine ondansetron (pf) (Zofran) (2 mg/mL) injection 4 mg(Linked Group 3) 4 mg, Intravenous, EVERY 6 HOURS PRN, Starting on Fri04/30/24 at 1713, Until 05/01/24 at 1856, Nausea, Vomiting, Can give IV if vomiting 1720 (Given - Provider: Nolberto Orr) 0332 (Given - Provider: Nena Chandler RN) ondansetron ODT (Zofran-ODT) disintegrating tablet 4 mg(Linked Group 3) 4 mg, Oral, EVERY 6 HOURS PRN, Starting on Fri04/30/24 at 1713, Until 05/01/24 at 1856, Nausea, Routine 1720 (See Alternative - Provider: Nolberto Orr) 0332 (See Alternative - Provider: Nena Chandler RN) polyethylene glycoL (Miralax) packet 17 g 17 g, Oral, DAILY PRN, Starting on Fri04/30/24 at 1841, Until 05/01/24 at 1856, Constipation, Routine senna-docusate (Pericolace) 8.6-50 mg per tablet 2 tablet 2 tablet, Oral, 2 TIMES DAILY PRN, Starting on Fri04/30/24 at 1841, Until 05/01/24 at 1856, Constipation, Administer to achieve 1 soft bowel movement daily without straining , Routine sodium chloride 0.9 % (flush) (BD PosiFlush Normal Saline 0.9) flush 5-20 mL 5-20 mL, Intravenous, EVERY 1 MIN PRN, Starting on Fri04/30/24 at 1841, Until 05/01/24 at 1856, flush, Flush pertains to all indwelling lines. Flush per protocol found in the job aid using the link provided on this medication record., Routine Linked Groups Order Group 1: aspirin chewable tablet 81 mgJump to med 81 mg, Oral, DAILY, First dose on 05/01/24 at 0900, Until Discontinued, Routine Or aspirin suppository 300 mgJump to med 300 mg, Rectal, DAILY, First dose on 05/01/24 at 0900, Until Discontinued, Routine Group 2: acetaminophen (Tylenol) tablet 975 mgJump to med 975 mg, Oral, EVERY 6 HOURS PRN, Starting on Fri04/30/24 at 1841, Until 05/01/24 at 1856, Pain, Fever, pain or oral temperature greater than 100 degrees F (measured by mouth), Maximum dose of acetaminophen is 4,000 mg from all sources in 24 hours. When ordered for pain, acetaminophen should be given even when other ordered pain medications are indicated., Routine Or acetaminophen (Tylenol) (32.02 mg/mL) oral liquid 975 mgJump to med 975 mg, Per G Tube, EVERY 6 HOURS PRN, Starting on Fri04/30/24 at 1841, Until 05/01/24 at 1856, Pain, Fever, pain or oral temperature greater than 100 degrees F (measured by mouth), Maximum dose of acetaminophen is 4,000 mg from all sources in 24 hours. When ordered for pain, acetaminophen should be given even when other ordered pain medications are indicated., Routine Or acetaminophen (Tylenol) suppository 650 mgJump to med 650 mg, Rectal, EVERY 6 HOURS PRN, Starting on 04/30/24 at 1841, Until 05/01/24 at 1856, Pain, Fever, pain or oral temperature greater than 100 degrees F (measured by mouth), Maximum dose of acetaminophen is 4,000 mg from all sources in 24 hours. When ordered for pain, acetaminophen should be given even when other ordered pain medications are indicated., Routine Group 3: ondansetron ODT (Zofran-ODT) disintegrating tablet 4 mgJump to med 4 mg, Oral, EVERY 6 HOURS PRN, Starting on 04/30/24 at 1713, Until 05/01/24 at 1856, Nausea, Routine Or ondansetron (pf) (Zofran) (2 mg/mL) injection 4 mgJump to med 4 mg, Intravenous, EVERY 6 HOURS PRN, Starting on 04/30/24 at 1713, Until 05/01/24 at 1856, Nausea, Vomiting, Can give IV if vomiting documented in this encounter Care Teams Hris Coordinator Relationship Specialty Start Date End Date Ml Felton, TOP LIFT AND AUTOMATIC WINDOW REPAIRER [address] [place] [address] PCP - General Internal Medicine 04/30/24 documented as of this encounter
--- OUTSIDE RECORDS SUMMARY | 2024-07-09 01:29 | XMS_ITS | Referral Summary ---
Author Organization [facility] Address [address] [place] [address] Care Team Providers Care Chute Puller Name Role Phone Kristin Feltonyce Car SCREENING TECHNICIAN Primary Care Provider [phone] Social History Tobacco Use Types Packs/Day Years Used Date Smoking Tobacco: Never Assessed Sex and Gender Information Value Date Recorded Sex Assigned at Not on file Gender Identity Not on file Sexual Orientation Not on file Plan of Treatment Not on file Care Teams Chute Puller Relationship Specialty Start Date End Date Ml Felton NP [address] [place] [id number] PCP - General Family Medicine - Primary Care 08/31/22
--- OUTSIDE RECORDS SUMMARY | 2024-07-09 01:29 | XMS_ITS | Clinical Summary ---
Author Organization [facility] Address [address] [place] [address] Care Team Providers Care Office Machine Punch Operator Name Role Phone PurnimaMl mendes JEWELRY MODEL MAKER Primary Care Provider [phone] Social History Tobacco Use Types Packs/Day Years Used Date Smoking Tobacco: Never Assessed Sex and Gender Information Value Date Recorded Sex Assigned at Not on file Gender Identity Not on file Sexual Orientation Not on file Plan of Treatment Health Maintenance Due Date Last Done Comments Hepatitis C Screen 1960 RSV Immunization ( o r 60+ Years) (1 - 1-dose 60+ series) 2021 COVID-19 Vaccine (2022-24 season) 2023 Care Teams Office Machine Punch Operator Relationship Specialty Start Date End Date Ml Felton NP [address] [place] [id number] PCP - General Family Medicine - Primary Care 08/31/22
--- OUTSIDE RECORDS SUMMARY | 2024-07-09 01:29 | XMS_ITS | Encounter Summary ---
Author Organization [facility] Address [address] [place] [address] Care Team Providers Care Cement Finisher Name Role Phone Ml Felton Car AMBULANCE ASSISTANT Primary Care Provider [phone] Encounter Details Date Type Department Care Team (Late st Contact Info) Description 09/30/2022 Lab Requisition [facility] Pathology & Laboratory Medicine - [facility] [address] [place] [address] Dion Umana MD [address] [place] [address] [address] [place], [place] [id number] Encounter for screening for malignant neoplasm of colon Social History Tobacco Use Types Packs/Day Years Used Date Smoking Tobacco: Never Assessed Sex and Gender Information Value Date Recorded Sex Assigned at Not on file Gender Identity Not on file Sexual Orientation Not on file documented as of this encounter Plan of Treatment Not on file documented as of this encounter Procedures Procedure Name Priority Date/Time Associated Diagnosis Comments SURGICAL PATHOLOGY Today 09/30/2022 8:32 EDT Encounter for screening for malignant neoplasm of colon documented in this encounter Results * SURGICAL PATHOLOGY (09/30/2022 8:32 EDT) Note to Patient The following pathology results have been interpreted by your pathologist and may be available to you before your health provider has had the opportunity to review them. Please allow time for your provider to receive these results and explore management options, if applicable. 10/02/2022 10:18 [facility] Final Diagnosis A. COLON, ASCENDING, POLYP: - Fragments of sessile serrated adenoma. B. COLON, DESCENDING, POLYP: - Tubular adenoma. C. RECTUM, POLYPS x11: - Tubular adenoma. - Separate fragments of hyperplastic polyps. Eight tissue fragments received. D. RECTUM, POLYPS x2: - Fragments of tubular adenomas. 10/02/2022 10:18 [facility] Attestation By the signature below, the attending physician certifies that they have 1) personally conducted a gross and/or microscopic examination of the described specimen(s), and/or personally interpreted the results of laboratory testing of the described specimen(s), and 2) personally rendered or confirmed the above diagnosis. 10/02/2022 10:18 [facility] at 1018 Clinical History Colon cancer screening 10/02/2022 10:18 [facility] Gross Description A. Received in formalin labelled with proper patient identification (initials H, E) and ascending colon polyp are 3 rendon focally brown tissues (0.7 x 0.1 x 0.1 cm to 0.1 x 0.1 x 0.1 cm). Entirely submitted in A1. B. Received in formalin labelled with proper patient identification (initials H, E) and descending colon polyp is a single rendon tissue fragment (0.1 x 0.1 x 0.1 cm). Submitted intact in B1. C. Received in formalin labelled with proper patient identification (initials H, E) and rectal polyps x 11 are 8 rendon tissues (0.4 x 0.1 x 0.1 cm to 0.1 x 0.1 x 0.1 cm). Entirely submitted in C1-C2. D. Received in formalin labelled with proper patient identification (initials H, E) and rectal polyp snare x2 are 15 rendon tissues (0.6 x 0.1 x 0.1 cm to 0.1 x 0.1 x 0.1 cm). Entirely submitted in D1-D3. AARON LYNN 10/01/2022 5:35 10/02/2022 10:18 [facility] Performing Lab [facility] 10/02/2022 10:18 [facility] Scanned Images 10/02/2022 10:18 EDT [facility] Tissue SPECIMEN FROM RECTUM / Unknown 09/30/2022 8:32 EDT 09/30/2022 19:12 EDT Tissue specimen (specimen) DESCENDING COLON STRUCTURE / Unknown 09/30/2022 8:32 EDT 09/30/2022 19:12 EDT Tissue specimen (specimen) SPECIMEN FROM RECTUM / Unknown 09/30/2022 8:32 EDT 09/30/2022 19:12 EDT Tissue specimen (specimen) SPECIMEN FROM RECTUM / Unknown 09/30/2022 8:32 EDT 09/30/2022 19:12 EDT Dion Umana MD PATHOLOGY [facility] [address] [place] [address] documented in this encounter Visit Diagnoses Diagnosis Encounter for screening for malignant neoplasm of colon Special screening for malignant neoplasms, colon documented in this encounter Care Teams Cement Finisher Relationship Specialty Start Date End Date Ml Felton NP [address] [place] [address] PCP - General Family Medicine - Primary Care 08/31/22 documented as of this encounter
--- OUTSIDE RECORDS SUMMARY | 2024-07-09 01:29 | XMS_ITS | Encounter Summary ---
Author Organization [facility] [address] Care Team Providers Care Drilling Machine Operator Name Role Phone Froylan VALLADARES MD, Nico Abrams Primary Care Provider Encounter Details Date Type Department Care Team (Late st Contact Info) Description 04/26/2024 Telephone [place] [phone] Adonay Lee MD [facility] [place] [address] Social History Tobacco Use Types Packs/Day Years Used Date Smoking Tobacco: Never Assessed Sex and Gender Information Value Date Recorded Sex Assigned at Not on file Gender Identity Not on file Sexual Orientation Not on file documented as of this encounter Miscellaneous Notes * Telephone Encounter - Adonay Lee MD - 04/26/2024 4:12 PM EDT Was called by the transfer center for Keegan Delgadillo who presented there with upper abdominal pain and found to have a ? penetrating ulcer on CTA in his infrarenal aorta. On my review of the imaging he has a slight amount of posterior plaque but nothing flow limiting and nothing that I would suspect to be the cause of his abdominal pain on presentation. I recommended he take a baby Asprin and statin. documented in this encounter Plan of Treatment Upcoming Encounters Date Type Department Care Team (Late st Contact Info) Description 12/13/2024 11:00 AM EST [place] [address] Juantia Moreau, [facility] [place] [address] documented as of this encounter Visit Diagnoses Not on filedocumented in this encounter Care Teams Drilling Machine Operator Relationship Specialty Start Date End Date Nico Galeano III, MD [address] [place] [id number] PCP - General 10/23/10 04/29/24 documented as of this encounter
[2024-07-09 08:28] LABS: ALT 34 U/L (16-63); AST 18 U/L (15-37); Albumin 3.4 g/dL (3.4-5.0); Alkaline Phosphatase 97 U/L (46-116); Anion Gap 8.6 mmol/L (3-11); BUN 13 mg/dL (7-18); Bilirubin, Total 0.29 mg/dL (0.2-1.0); CO2 28.4 mmol/L (21.0-32.0); Calcium 8.6 mg/dL (8.5-10.1); Calculated LDL 41 mg/dL (<100); Chloride 108 mmol/L (98-107); Cholesterol 96 mg/dL (<200); Glucose 99 mg/dL (74-106); HDL Cholesterol 43 mg/dL (40-60); Potassium 3.9 mmol/L (3.5-5.1); Sodium 145 mmol/L (136-145); Total Protein 6.7 g/dL (6.4-8.2); Triglyceride 61 mg/dL (<150)
== END 2024-07-09 01:12 | disposition home or self-care (01) ==
LOC: LBO 01:12
PROVIDERS: PCP Nurse Practitioner; Visit Provider Nurse Practitioner
DX: I63.543 Cerebral infarction due to unspecified occlusion or stenosis of bilateral cerebellar arteries (principal); R73.01 Impaired fasting glucose
CPT/HCPCS: 36415; 80053; 80061; 83036

== ENCOUNTER 2025-09-07 09:01 | Day surgery (SDC) | payer MEDICAID, SELFPAY ==
[2025-09-07 09:17] VITALS: BP 118/82; PULSE 63; RESP 18; TEMP 36.7; O2SAT 97
[2025-09-07] MEDS: Lactated Ringers 1,000 ML 80 ML IV (09:34)
--- NOTE | 2025-09-07 09:46 | W.ANESPRE ---
General Info Date of Service Date Performed: 09/07/25 Height: 5 ft 6 in Weight: 86.8 kg Body Mass Index (BMI): 30.9 Surgical Procedure: Operation Date: 09/07/25 11:35 Proposed Procedure Side Surgeon jennifer Clarke MD Meds Allergies and Home Medications Allergies Allergy/AdvReac Type Severity Reaction Status Date / Time No Known Allergies Allergy Verified 09/07/25 09:17 Home Medication ?Medication ?Instructions ?Recorded ibuprofen 800 mg tablet 800 mg PO TID PRN PRN Pain #30 tabs 11/21/15 Held on 04/26/24. Instructions: Resume on 05/30/24. It's best to avoid NSAIDs when any concern for stomach ulcer- take Tylenol instead. ondansetron 4 mg disintegrating 4 mg PO Q6H PRN nausea and 04/27/24 tablet vomiting #30 tabs amlodipine 5 mg tablet 5 mg PO DAILY #90 tabs 03/07/25 atorvastatin 40 mg tablet 40 mg PO DAILY #90 tabs 03/07/25 losartan 50 mg tablet 50 mg PO DAILY #90 tabs 03/07/25 pantoprazole 40 mg tablet,delayed 40 mg PO DAILY #90 tabs 03/07/25 release aspirin 81 mg chewable tablet See Rx Instructions .Route 08/17/25 .COMPLEX #90 tabs bisacodyl 5 mg tablet,delayed 5 mg PO ONCE #4 tabs 08/18/25 release (Dulcolax (bisacodyl)) polyethylene glycol 3350 17 17 g PO ONCE #238 grams 08/18/25 gram/dose oral powder Current Visit Medications: Current Medications Generic Name Dose Route Start Last Admin Trade Name Canq PRN Reason Stop Dose Admin Ringer's Solution 1,000 mls @ 80 mls/hr 09/07/25 06:00 09/07/25 09:34 IV 09/07/25 23:59 80 mls/hr INFUSION JOSE F Administration IV Miscellaneous Supplies 1 each 09/07/25 06:00 Iv Access IV 09/07/25 23:59 DIRECTED JOSE F Sodium Chloride 0 ml 09/07/25 06:00 Normal Saline Flush 10 Ml Syr IV 09/07/25 23:59 PRN PRN Sodium Chloride 0 ml 09/07/25 06:00 Normal Saline 10 Ml Vial IJ 09/07/25 23:59 DIRECTED PRN Sterile Water 0 ml 09/07/25 06:00 Water,Injection,Sterile 10 Ml Vial IJ 09/07/25 23:59 DIRECTED PRN PFSH Active Problems Active Problems: Problem Status Onset Code Pre-diabetes Acute R73.03 Hyperlipidemia Acute E78.5 CVA (cerebral vascular accident) Chronic I63.9 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 Umana, 04/14 Inguinal hernia (05/01/15) right side, operated by Dr. Umana, 04/14 Medical History Comments:: 09/30/22 pt reports he tested positive for covid on 09/10/22, 5 days later tested negative. Pt reports he has a smokers cough but was coughing up green phelgm thick 2 days ago. Smokers cough today. Pt reports he had a cigareete at 5:30am today 09/30/22 Smoked marihuana 09/29/22 Surgical History Surgical History History of colonoscopy (~10/2022) Repair of inguinal hernia 05/10/15; RIGHT WITH MESH REPAIR Excision, Lipoma 05/10/15 ON FOREHEAD. Tobacco Smoking/Tobacco Use Status: Former Tobacco Use Passive smoking exposure: Yes Alcohol Alcohol Intake: current Alcohol intake frequency: 0-2 drinks per day Alcohol type: beer and hard liquor Substance Use Substance use: Daily Substance use type: marijuana Details: last used 09/29/22 Pt states he had a 6-pack of twisted tea yesterday 04/26/24 Vital Signs and Lab Results Vital Signs Most Recent Vital Signs in EMR: Most Recent Vital Signs Temp Pulse Resp BP Pulse Ox 36.7 C 63 18 118/82 97 09/07/25 09:17 09/07/25 09:17 09/07/25 09:17 09/07/25 09:17 09/07/25 09:17 Anesthesia Assessment and Plan Anesthesia History Personal History: No History of Anesthesia Complications Family History: No Family History of Anesthesia Complications Exercise Tolerance Exercise Tolerance: Metabolic Equivalents>4 Pertinent Negatives Pertinent Negatives: No Symptoms of GERD Cardiac & Pulmonary Exam Cardiac Exam: Normal S1/S2 Heart Sounds Pulmonary Exam: Clear Bilateral Breath Sounds Implantable Cardiac Device Does patient have a Pacemaker or an ICD?: No Airway Exam Known Difficult Airway: No Mallampati Class: 1 Mouth Opening: Normal (> 3cm) Thyromental Distance: Greater than 3 cm Neck Range of Motion: Full ROM Neck Circumference: Normal Teeth Condition: Normal Dentition ASA Classification ASA Score: ASA 2 Emergency Case?: No NPO Status NPO Status: NPO Clears >2 hours, Solids >8 hours Anesthesia Plan Resuscitation Status: Full Code Anesthesia Technique: General Anesthesia Airway Planned: Natural Airway Monitors Used: Standard Monitors
[2025-09-07 10:08] VITALS: BMI 30.9
--- NOTE | 2025-09-07 10:53 | BOWEL_PTH ---
PATIENT: Keegan Delgadillo LOC: [facility] U#:[id number] AGE/SX: 64/M ROOM: RE09/07/[address]: Olga Clarke : 1960 BED: DIS: 09/07/2025 SPEC #: [id number] RECD: 09/07/25 12:44 STATUS: SUSIE REQ #: [id number] HARLEY: 09/07/25 10:[address]: Olga Clarke DEPT: Surgical Specimen RECD BY: Scarlet Sandhu ENTERED: 09/07/25 12:46 SP TYPE: Bowel OTHR DR: Ml Felton APRN Tissues: 1 - BIOPSY BOWEL 2 - BIOPSY BOWEL Procedures: GROSS AND MICRO LEVEL 4 Comments: [id number]
[2025-09-07 11:05] VITALS: BP 120/83; PULSE 63; RESP 18; TEMP 36; O2SAT 98
--- NOTE | 2025-09-07 11:08 | W.PM.DSUDISC ---
Date of service: 09/07/25 Discharge Plan Disposition Patient Disposition: Home Condition: Good Discharge Details Reason For Visit: Surveillance colonoscopy Attending Provider: Olga Clarke Primary Care Provider: Ml Felton Home Meds and New Rx's Prescriptions: Continued amlodipine 5 mg tablet 5 mg PO DAILY Qty: 90 3RF atorvastatin 40 mg tablet 40 mg PO DAILY Qty: 90 3RF losartan 50 mg tablet 50 mg PO DAILY Qty: 90 3RF pantoprazole 40 mg tablet,delayed release (DR/EC) 40 mg PO DAILY Qty: 90 3RF aspirin 81 mg tablet,chewable See Rx Instructions .ROUTE .COMPLEX Qty: 90 3RF Dose Instruction: CHEW ONE TABLET BY MOUTH EVERY DAY Rx Instructions: CHEW ONE TABLET BY MOUTH EVERY DAY ibuprofen 800 MG tablet 800 mg PO TID PRN PRN (Reason: Pain) Qty: 30 0RF ondansetron 4 mg tablet,disintegrating 4 mg PO Q6H PRN (Reason: nausea and vomiting) Qty: 30 0RF Discontinued bisacodyl [Dulcolax (bisacodyl)] 5 mg tablet,delayed release (DR/EC) 5 mg PO ONCE Qty: 4 0RF Rx Instructions: Take per colonoscopy instructions provided by ordering providers office polyethylene glycol 3350 17 gram/dose powder 17 g PO ONCE Qty: 238 0RF Rx Instructions: Take per colonoscopy instructions provided by ordering providers office Discharge Instructions Instructions: Colon polyps Additional Instructions: Your colonoscopy went well today. He did have 3 polyps which were removed. These will be sent to pathology. Once we receive the pathology results we will contact you with these and let you know when to follow-up for your next colonoscopy. If you have any questions or concerns please contact the surgery office. 1. If tolerated, consume a soft, low fiber diet for 1-2 days. 2[address] Do not drive, drink alcohol, operate machinery, make critical decisions, or do activities that require coordination or balance for 24 hours. 3. Because air was put into your colon during the procedure, expelling air from your rectum (passing gas or farting) is normal. 4. You may not have a bowel movement for 1-3 days because of the colonoscopy prep. This is normal. 5. Go directly to the emergency room if you notice any of the following: Develop chills (warm to touch), or if you have a thermometer and your temperature is above 101 Difficulty breathing or difficultly swallowing Persistent vomiting Severe abdominal pain, other than gas cramps Severe chest pain Black, tarry stools Any bleeding ? exceeding one tablespoon 6. Call your physician if the site where your intravenous was started becomes red, swollen, painful, and warm to touch. 7. Your physician has reviewed your pre-procedure medications. Please continue to take those medications as previously ordered. You will be given specific information/education regarding any changes to your medications before leaving. Stand Alone Forms: Anesthesia Discharge InstAlannah Peoples (DSU) Activity:: Activity as Tolerated Diet:: As Tolerated Discharge Orders Discharge Orders: Discharge Order (Routine); Ordered 09/07/25 Ordered By: Olga Clarke
--- NOTE | 2025-09-07 11:11 | W.COLOREPORT ---
Date of service: 09/07/25 Time of Service: 11:11 Colonoscopy Report Date of procedure: 09/07/25 Pre-op diagnosis general: History of colon polyps Post-op diagnosis procedure note: same Procedure: Colonoscopy with polypectomy Surgeon: Olga Clarke Anesthesia Type: General:No Airway Estimated blood loss (mL): 2 Pathology: other (colon polyp at 65cm, 2 polyps at 20cm ) Complications: None Disposition: PACU Indications: Patient is a 64-year-old male who presents for a surveillance colonoscopy given history of polyps and a family history of colon cancer. He denies any recent changes in his stool or other concerning findings. Prep: Miralax/Dulcolax Procedure Start Time: :22 Procedure End Time: 11:02 Retraction Time: 15 Findings: 5mm polyp at 65 cm removed with cold forceps. 2 small polyps at 20 cm removed with cold forceps. Procedure Description: The patient was brought to the endoscopy suite and placed in the left lateral decubitus position. After induction of IV sedation, a digital rectal exam was performed. Digital exam was normal. The colonoscope was then passed to the cecum. There was an area of narrowing of the sigmoid colon which made navigating the scope difficult but no evidence of mucosal abnormality or other concerning findings. Cecal intubation was confirmed by the identification of the appendiceal orifice and the ileocecal valve. Upon withdrawing the colonoscope, all mucosal surfaces were inspected. The prep was noted to be adequate. At 65cm there was a 5mm polyp, which was removed using cold forceps in its entirety. Also at 20cm there were 2 small polyps removed with cold forceps. Specimens were retrieved for pathological analysis. There was no other evidence of mucosal abnormality, polyp or cancer. Retroflexion in the rectum was unremarkable.The patient tolerated the procedure well with no complications. Postoperatively, the patient was transferred to the recovery room in stable condition. Shannock Bowel Prep Shannock Bowel Prep Right Colon: 3 Left Colon: 3 Transverse Colon: 3 Total Score: 9
--- NOTE | 2025-09-07 11:32 | W.ANESPOSTOP ---
Postoperative Evaluation Date, Time and Location Date Performed: 09/07/25 Time Performed: : Patient Location: Day Surgery Unit Vital Signs Most Recent Imported Vital Signs: Most Recent Vital Signs Temp Pulse Resp BP Pulse Ox 36.0 C L 63 18 120/83 98 09/07/25 11:05 09/07/25 11:05 09/07/25 11:05 09/07/25 11:05 09/07/25 11:05 Pain Score Most Recent Pain Score: Most Recent Pain Score Pain Level 0 09/07/25 11:05 Assessment Mental Status: Awake (Alert & Oriented to Patient Baseline) Airway and Respiratory Function: Patent airway with normal (patient baseline) respiratory exam Cardiovascular Function: Hemodynamically Stable Hydration Status: Adequately Hydrated Nausea & Vomiting: No Nausea or Vomiting Pain: Pt. Denies Any Pain Peripheral Nerve Block: Patient did not receive a nerve block
[2025-09-07 11:37] VITALS: BP 136/89; PULSE 65; RESP 18; TEMP 36.3; O2SAT 96
== END 2025-09-07 11:49 | disposition home or self-care (01) ==
PROVIDERS: PCP Nurse Practitioner; Visit Provider Student in an Organized Health Care Education/Training Program
PROC: 0DJD8ZZ Inspection of Lower Intestinal Tract, Via Natural or Artificial Opening Endoscopic (ICD-10-PCS; CPT 45378; principal; 2025-09-07 11:30)
DX: Z12.11 Encounter for screening for malignant neoplasm of colon (principal); D12.4 Benign neoplasm of descending colon; D12.5 Benign neoplasm of sigmoid colon
CPT/HCPCS: 45380; 88305; J2704

== ENCOUNTER 2025-09-20 00:05 | Outpatient (CLI) | payer MEDICAID, SELFPAY ==
[2025-09-20 07:25] LABS: Abs Immature Grans 0.05 10^3/uL (0.0-0.06); HCT 43.8 % (40.0-50.0); HGB 14.6 g/dL (13.5-17.5); Immature Grans % 0.5 %; MCH 29.6 pg (27.0-33.0); MCHC 33.3 % (32.0-36.0); MCV 89 fL (80-95); MPV 8.6 fL (8.0-11.0); Platelet Count 237 10^3/uL (130-400); RBC 4.93 10^6/uL (4.36-5.78); RDW 13.3 % (11.8-14.1); RDW-SD 43.7 fL; WBC 10.16 10^3/uL (4.4-10.8)
[2025-09-20 07:42] LABS: ALT 25 U/L (16-63); AST 16 U/L (15-37); Albumin 3.7 g/dL (3.4-5.0); Alkaline Phosphatase 89 U/L (46-116); Anion Gap 6.6 mmol/L (3-11); BUN 20 mg/dL (7-18); Bilirubin, Total 0.5 mg/dL (0.2-1.0); CO2 29.4 mmol/L (21.0-32.0); Calcium 8.8 mg/dL (8.5-10.1); Chloride 105 mmol/L (98-107); Estimated GFR 95.37 (mL/min/1.73m2); Glucose 96 mg/dL (74-106); Potassium 4.3 mmol/L (3.5-5.1); Sodium 141 mmol/L (136-145); Total Protein 7.2 g/dL (6.4-8.2)
[2025-09-20 12:52] LABS: Calculated LDL 65 mg/dL (<100); Cholesterol 124 mg/dL (<200); HDL Cholesterol 42 mg/dL (>or=40); Triglyceride 89 mg/dL (<150)
== END 2025-09-20 00:06 | disposition home or self-care (01) ==
LOC: LBO 00:05
PROVIDERS: Nurse Practitioner
DX: E78.5 Hyperlipidemia, unspecified (principal); I63.9 Cerebral infarction, unspecified; R73.03 Prediabetes; I10 Essential (primary) hypertension
CPT/HCPCS: 36415; 80053; 80061; 85025

== ENCOUNTER 2025-09-27 00:56 | Outpatient (CLI) | payer MEDICAID, SELFPAY ==
--- NOTE | 2025-09-27 06:30 | DI.CTLCSR_ITS ---
Exam(s) CT CHEST LUNG CANCER SCREEN EXAM: CT CHEST LUNG CANCER SCREEN CLINICAL HISTORY: Screening for lung cancer,H/O SMOKING,Z87.891 TECHNIQUE: Imaging Protocol: Axial computed tomography images with coronal and sagittal reformatted images were created and reviewed. Lung Computer Aided Detection (CAD) was utilized. COMPARISON: CT CT THORAX ABD/PEL CTA from 04/26/2024 FINDINGS: Tracheobronchial tree: Patent where visualized. No bronchiectasis. Pulmonary parenchyma: No consolidation or dominant measurable mass. No architectural distortion. There is a calcified granuloma in the right upper lobe. Lung Nodules: There are no suspicious pulmonary nodules. Mediastinum and Stephany: No dominant adenopathy or fluid collection. The esophagus is unremarkable. Thyroid gland: Unremarkable. Lymph nodes: Unremarkable. Pleura: No effusion or pneumothorax. Heart: The heart is not dilated. No coronary artery calcifications are seen. No pericardial effusion. Aorta: Thoracic aorta non-dilated.Atherosclerotic calcification is present. Upper abdomen: Unremarkable. Soft Tissues: There is bilateral gynecomastia, left greater than right. Bones: Within normal limits. IMPRESSION: There are no suspicious pulmonary nodules. Lung RADS Cat 1 - Negative: No nodules and definitely benign nodules Lung-RADS 1.0 CATEGORIES: Category 0 - Prior chest CT exam(s) being located for comparison. Category 1 - Annual screening in 12 months. No nodules or definitely benign nodules. Category 2 - Annual screening in 12 months. Benign appearance. Nodules with low likelihood of becoming active cancer. Category 3 - 6-month follow-up. Probably benign. Short-term follow-up suggested. Nodules with low likelihood of becoming active cancer. Category 4A - 3-month follow-up and CT/PET if >8 mm in size. Suspicious finding. Findings which require additional testing. Category 4B - Findings which require additional testing and tissue sampling. Suspicious finding. Category 4X - Category 3 or 4 nodules with additional features or imaging findings that increases the suspicion of malignancy. Modifier S- Potentially clinically significant finding. (Non lung cancer) RADIATION DOSE DELIVERED: 33.44mGy.cm Total DLP 33.44mGy.cmTotal DLP DATA REPOSITORY: All CT scans at this facility are submitted to the National Radiology Data Registry (NRDR) Dose Index Registry (DIR) with the [employer] ([employer]). RADIATION OPTIMIZATION: All CT scans at this facility use at least one of these dose optimization techniques: automated exposure control; mA and/or kV adjustment per patient size (includes targeted exams where dose is matched to clinical indication); or iterative reconstruction.
== END 2025-09-27 01:16 ==
LOC: DI 00:56
DX: Z87.891 Personal history of nicotine dependence (principal); Z12.2 Encounter for screening for malignant neoplasm of respiratory organs
CPT/HCPCS: 71271